=== PATIENT | male | born 1965 | race Caucasian/White ===

== ENCOUNTER → 2016-03-24 | Outpatient (CLI) | payer MEDICAID ==
[~2016-03-24] MED LIST: ACETAMINOPHEN-H1 TA2 PO; AMOXICOT500 MG PO; ASPIRIN 81MG TA81 MG PO; AUGMENTIN 875-1 EACH PO; BISOPROLOL 5MG T5 MG PO; CEPHALEXIN500 M1 PO; DICLOFENAC 50MG50 MG PO; EPI-PEN1 MG/M1 MR; ERYTHROMYCI4 GM/TUBE OP; GABAPENTIN 400400 MG PO; GABAPENTIN100 M1 PO; GABAPENTIN800 MG PO; HYDROCODONE-APA1 TA2 PO; MEDROL 4MG. DOSE4 MG PO; MELOXICAM7.5 MG PO; NAPROXEN SODIU500 MG PO; PERCOGESIC EXTR1 TAB PO; TORADOL10 M2 PO; TYLENOL WITH CO1 TA1 PO
[2016-03-24 15:38] LABS: URINE BILIRUBIN - DIPSTICK NEGATIVE (NEG); URINE BLOOD NEGATIVE (NEG)
[2016-03-24 15:42] LABS: LYMPH # 2.7 K/mm3 (0.7-4.5); LYMPH % 35.1 % (10-50)
[2016-03-24 15:45] LABS: HEMOGLOBIN 15.3 g/dL (14.1-18.0)
[2016-03-24 16:23] LABS: BUN 11 mg/dL (7-18)
[2016-03-24 16:28] LABS: GFR (ESTIMATED) 79 ML/MIN (>60)
[2016-03-24 16:39] LABS: URINE SQUAMOUS CELLS OCC #/hpf (OCC)
== END ==
LOC: LAB 15:06
PROVIDERS: Surgery
DX: Z01.812 Encounter for preprocedural laboratory examination (principal)

== ENCOUNTER 2016-03-27 20:01 | Emergency (ER) | payer MEDICAID ==
[~2016-03-27] VITALS: Ht 175.3 cm; Wt 65.8 kg
[~2016-03-27 20:01] MED LIST changes: -ACETAMINOPHEN-H1 TA2 PO; -AUGMENTIN 875-1 EACH PO; -GABAPENTIN800 MG PO
[2016-03-27] MEDS ORDERED: GABAPENTIN800 MG PO (20:15)
[2016-03-27] MEDS ORDERED: ACETAMINOPHEN-H1 TA2 PO (20:16)
--- NOTE | 2016-03-27 21:18 | Emergency Room Report ---
History of Present Illness Time Seen by [id number] Presenting Problem in Triage Pt arrived:Wheelchair Presenting Problem:PT COMPLAINING OF PAIN OF PAIN IN LOWER ABDOMEN UP TO RIBS. PT STATES THAT HE HAD 2 HERNIAS REMOVED THIS AM BY DR SIDDIQUI. PT STATES HE WENT HOME AT 1000 AND STARTED HURTING AT 1200. 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 N Clinical Suspician of Infection? N Mental Status: 1 - Regular (Normal Baseline) Sepsis Risk:Low Sepsis Risk Have you (or family members/close friends) recently traveled outside the [place]? N If Yes, where/when: Have you had exposure to infectious disease within the past month? N TB? Other? Specify: Source patient, RN notes reviewed Exam Limitations no limitations Comment Pain from lower abdomen to ribs. Says he had 2 hernias repaired this AM by Dr. Siddiqui. Went home at 10AM and started hurting at 12 noon. He has not spoken to Dr. Siddiqui Cardiac Chest Pain Chest pain indicative of cardiac No ALLERGIES Coded Allergies: peanut (Mild, SOB, SWELLING 03/27/16) Home Medications Active Scripts Epinephrine (Epipen 2-Boby) 1 MG MR ONCE PRN severe allergic reaction #1 KIT Prov: 11/20/15 ASPIRIN (Aspirin) 81 MG PO DAILY #30 Ref 5 Prov: 11/25/15 BISOPROLOL FUMARATE (Bisoprolol 5MG) 2.5 MG PO DAILY #30 TAB Ref 3 Prov: 11/25/15 Reported Medications Gabapentin (Gabapentin 800MG) 800 MG PO BID #60 HYDROCODONE/ACETAMINOPHEN (Hydrocodon-Acetaminophen 5-325) 1 TAB PO Q6HP PRN HERNIA SX #27 History Medical History General CAD? No Angina: No [place]: No Hypertension? No Hyperlipidemia? No CHF? No DVT? No PE? No COPD? No Asthma? No Anemia? No GERD? No Gastric ulcers? No GI Bleed? No Hernia? No Thyroid Problems? No Hypothyroidism? No CVA? No Seizures? Yes Diabetes? No Insulin Dependent: No Insulin Pump: No Home FSBS? No Renal Insuffiency? No End Stage Renal Disease? No UTI? No Stones? No BPH? No GB Disease: No Nephritic Syndrome? No Asplenia? No Hepatitis? No Sickle Cell Disease? No Arthritis? No Migraines? No Cataracts? No Glaucoma? No MRSA? No HIV? No TB? No Anxiety? No Depression? No Cancer? No More? Yes Additional hx: CHRONIC PAIN chronic low back pain chronic migraine headaches Bipolar disease Paranoid Schizophrenia Immunization Hx DT/Tetanus 5-10 Years Ago Pneumonia Refuses Surgical Hx Previous Surgery?Y RECONSTRUCTIVE FACIAL SWATI Appendectomy BACK SURGERY X2 HERNIA SX X 2 03/17 Family History Family Hx Diabetes No CAD Yes Hypertension No Hyperlipidemia Yes Cancer No TB No Social History Smoking Hx Smoker: Current Every Day Smoker Tobacco: Yes Type Cigarettes Packs/day 1 1/2 - 2 Packs Are you/the child exposed to second-hand smoke: Yes Alcohol Alcohol: No Review of Systems All Other Systems Reviewed and Negative Constitutional see HPI Gastrointestinal see HPI Physical Exam Vital Signs Vital Signs Date Time Temp Pulse Resp B/P Pulse O2 O2 Flow FiO2 Ox Delivery Rate 03/278 66 18 103/58 97 03/273 74 18 100/62 97 03/27 2051 79 18 108/64 99 03/27 2006 97.9 77 18 127/70 100 General Appearance mild distress Respiratory Status No: respiratory distress. Lung Sounds bilateral: normal breath sounds. Cardiovascular normal exam, regular rate/rhythm Gastrointestinal redness at upper border of inguinal incision and some mild subq air...Dr. Aj discussed with Dr. 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 I directly delivered medical care to this critically ill and/or injured patient. Timely evaluation and treatment was necessary to address the significant organ system(s) dysfunction present in this patient.
--- NOTE | 2016-03-27 22:27 | Emergency Room Report ---
History of Present Illness Time Seen by 2009 Presenting Problem in Triage Pt arrived:Wheelchair Presenting Problem:PT COMPLAINING OF PAIN OF PAIN IN LOWER ABDOMEN UP TO RIBS. PT STATES THAT HE HAD 2 HERNIAS REMOVED THIS AM BY DR SIDDIQUI. PT STATES HE WENT HOME AT 1000 AND STARTED HURTING AT 1200. 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 N Clinical Suspician of Infection? N Mental Status: 1 - Regular (Normal Baseline) Sepsis Risk:Low Sepsis Risk Have you (or family members/close friends) recently traveled outside the [place]? N If Yes, where/when: Have you had exposure to infectious disease within the past month? N TB? Other? Specify: Source patient, RN notes reviewed, family, old records Exam Limitations no limitations Comment pt with surg this am with lt inguinal hernia repair and inc pain and lat reddness but no drainage Cardiac Chest Pain Chest pain indicative of cardiac No Timing/Duration this evening Severity moderate ALLERGIES Coded Allergies: peanut (Mild, SOB, SWELLING 03/27/16) Home Medications Active Scripts Epinephrine (Epipen 2-Boby) 1 MG MR ONCE PRN severe allergic reaction #1 KIT Prov: 11/20/15 ASPIRIN (Aspirin) 81 MG PO DAILY #30 Ref 5 Prov: 11/25/15 BISOPROLOL FUMARATE (Bisoprolol 5MG) 2.5 MG PO DAILY #30 TAB Ref 3 Prov: 11/25/15 Reported Medications Gabapentin (Gabapentin 800MG) 800 MG PO BID #60 HYDROCODONE/ACETAMINOPHEN (Hydrocodon-Acetaminophen 5-325) 1 TAB PO Q6HP PRN HERNIA SX #27 History Medical History General CAD? No Angina: No [place]: No Hypertension? No Hyperlipidemia? No CHF? No DVT? No PE? No COPD? No Asthma? No Anemia? No GERD? No Gastric ulcers? No GI Bleed? No Hernia? No Thyroid Problems? No Hypothyroidism? No CVA? No Seizures? Yes Diabetes? No Insulin Dependent: No Insulin Pump: No Home FSBS? No Renal Insuffiency? No End Stage Renal Disease? No UTI? No Stones? No BPH? No GB Disease: No Nephritic Syndrome? No Asplenia? No Hepatitis? No Sickle Cell Disease? No Arthritis? No Migraines? No Cataracts? No Glaucoma? No MRSA? No HIV? No TB? No Anxiety? No Depression? No Cancer? No More? Yes Additional hx: CHRONIC PAIN chronic low back pain chronic migraine headaches Bipolar disease Paranoid Schizophrenia Immunization Hx DT/Tetanus 5-10 Years Ago Pneumonia Refuses Surgical Hx Previous Surgery?Y RECONSTRUCTIVE FACIAL SWATI Appendectomy BACK SURGERY X2 HERNIA SX X 2 03/17 Family History Family Hx Diabetes No CAD Yes Hypertension No Hyperlipidemia Yes Cancer No TB No Social History Smoking Hx Smoker: Current Every Day Smoker Tobacco: Yes Type Cigarettes Packs/day 1 1/2 - 2 Packs Are you/the child exposed to second-hand smoke: Yes Alcohol Alcohol: No Drugs none Review of Systems All Other Systems Reviewed and Negative Constitutional denies fever Eyes denies drainage ENT denies: ear pain, epistaxis, throat pain. Respiratory denies cough, denies wheezing Cardiovascular denies chest pain, denies palpitations, denies syncope Gastrointestinal see HPI, abdominal pain, denies diarrhea, denies vomiting Genitourinary denies: dysuria, frequency, hesitancy, hematuria. Musculoskeletal denies back pain, denies joint pain, denies joint swelling, denies neck pain Skin see HPI, denies rash, other Psychiatric/Neurological denies headache, denies seizure Physical Exam Vital Signs Vital Signs Date Time Temp Pulse Resp B/P Pulse O2 O2 Flow FiO2 Ox Delivery Rate 03/27 2323 68 20 104/56 97 03/27 2300 18 03/27 2247 71 18 105/60 98 03/278 66 18 103/58 97 03/27 2133 74 18 100/62 97 03/272 79 18 108/64 99 03/27 2007 97.9 77 18 127/70 100 - WBC >12,000 or <4,000 or 10% bands? 2 or more SIRS Criteria Met? B/P:104/56 MAP:89 Creatinine >2.0? UA output<0.5ml/kg/hr for 2 hrs? Platelet count >100,000? Lactate >2.0mmol/1? INR >1.2 or PTT > than 60 sec? Evidence of Organ Dysfunction? Provider documented clinical suspician of infection? N Sepsis Criteria Count: 0 Sepsis Risk: Low Sepsis Risk General Appearance no apparent distress Eye Exam - bilateral eye PERRL, bilateral eye EOMI Ear, Nose, Throat normal ENT inspection Neck supple Respiratory Status No: respiratory distress. 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 No Results/Orders Laboratory Tests 03/27/165: Sodium 137, Potassium 4.4, Chloride 102, Carbon Dioxide 31, BUN 13, Creatinine 1.2, Estimated Creat Clear 69, Estimated GFR (MDRD) 64, Glucose 180 H, Calcium 9.4, WBC 14.7 H, RBC 4.39 L, Hgb 13.1 L, Hct 39.5 L, MCV 89.9, RDW 14.2, Plt Count 193, Gran % 92.0 H, Gran # 13.5 H, Total Counted 100, Lymphocytes % 5.6 L, Monocytes % 2.4, Neutrophils 83 H, Band Neutrophils 8, Lymphocytes (Manual) 7 L, Lymphocytes # 0.8, Monocytes (Manual) 2, Monocytes # 0.4, RBC/WBC/PLT Morphology NORMAL, Platelet Estimate NORMAL, PUBS MCHC 33.2, MCH 29.8 Current Medication Orders Sig/Hiral Start time Last Medication Dose Route Stop Time Status Admin Ampicillin Sodium/ 0 .STK-MED ONE 03/27 2323 DC Sulbactam Sodium IV Sodium Chloride 100 ML .STK-MED ONE 03/27 2322 DC IV Ampicillin/Sulbactam/ 3 GM ONCE ONE 03/27 2315 DC 03/27 Sodium Chlorid IV 03/274 2327 Sodium Chloride 100 ML Ketorolac 30 MG ONCE ONE 03/27 2300 DC 03/27 Tromethamine IV 03/27 2301 2300 Sodium Chloride 1,000 ML .Q1H1M 03/27 2300 AC 03/27 IV 03/28 0000 2300 Sodium Chloride 10 ML PRN PRN 03/27 2300 AC IV 03/28 2254 Ketorolac 0 .STK-MED ONE 03/27 2257 DC Tromethamine .ROUTE Sodium Chloride 1,000 ML .STK-MED ONE 03/27 2257 DC IV Sodium Chloride 10 ML PRN PRN 03/27 2230 AC IV 03/28 2228 Orders Procedure Date/time Status DIFFERENTIAL-WBC 03/27 2244 Complete IV SALINE LOCK 03/27 2227 Active CULTURE, BLOOD 03/27 2227 Active CBC WITH AUTO DIFF 03/27 2227 Complete BASIC METABOLIC PROFILE 03/27 2227 Complete Departure Departure Time of Disposition 2343 Disposition DC Home or Self Care(routine) Clinical Impression Primary Impression: Post op infection Qualifiers: Encounter type: initial encounter Qualified Code: T81.4XXA - Infection following a procedure, initial encounter Condition STABLE Referrals Dave Duran (Family) discussed with dr siddiqui Patient Instructions How to Care for a Surgical Wound Additional Instructions recheck as ed follow up at 1100 am Discharge Counseling Counseled pt/family regarding diagnosis, test results, follow up needs Prescriptions Current Visit Scripts Amoxicillin/Potassium Clav (Augmentin 875-125 Tablet) 1 EACH PO BID #20 TAB ED Critical Care Critical Care No at [id number]
[2016-03-27 23:00] LABS: HEMOGLOBIN 13.1 g/dL (14.1-18.0)
[2016-03-27 23:01] LABS: LYMPH # 0.8 K/mm3 (0.7-4.5); LYMPH % 5.6 % (10-50)
[2016-03-27 23:14] LABS: NEUTROPHILS 83 % (42-76)
[2016-03-27] MEDS ORDERED: AUGMENTIN 875-1 EACH PO (23:45)
[2016-03-27 23:55] VITALS: BP 104/56
== END 2016-03-27 23:57 | disposition home or self-care (01) ==
LOC: ER 20:01
PROVIDERS: Emergency Medicine
DX: F20.0 Paranoid schizophrenia (principal)

== ENCOUNTER 2016-12-12 22:44 | Emergency (ER) | payer MEDICAID ==
[~2016-12-12] VITALS: Ht 175.3 cm; Wt 79.4 kg
[~2016-12-12 22:44] MED LIST changes: +ACETAMINOPHEN-H1 TA2 PO; +AUGMENTIN 875-1 EACH PO; +GABAPENTIN800 MG PO; +NOMEDS XX; +PREDNISONE 20MG20 MG PO
--- NOTE | 2016-12-12 23:01 | Emergency Room Report ---
History of Present Illness Time Seen by [id number] Presenting Problem in Triage Pt arrived:Walked Presenting Problem:C/O MID CHEST PAIN WITH RADIATION TO EPIGASTRIC AREA AND JAW FOR 3-4 DAYS. WAS ADMITTED 3-4 MONTHS AGO WITH SAME SYMPTOMS AND HAD CARDIAC CATH. ALSO C/O INCREASED PAIN WITH DEEP INSPIRATION. 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 N Clinical Suspician of Infection? N Mental Status: 1 - Regular (Normal Baseline) Sepsis Risk:Low Sepsis Risk Have you (or family members/close friends) recently traveled outside the [place]? N If Yes, where/when: Have you had exposure to infectious disease within the past month? N TB? Other? Specify: Source patient, RN notes reviewed, family, old records Exam Limitations no limitations Comment over the last few day has midsternal to epigastric chest pain with no diaphoresis and no def inc/dec factors - similiar to pain about 1 yr ago and he has cath which was ok and he has no melena or sig gerd Cardiac Chest Pain Chest pain indicative of cardiac No Timing/Duration this evening Severity moderate ALLERGIES Coded Allergies: peanut (Mild, SOB, SWELLING 03/27/16) Home Medications Active Scripts Epinephrine (Epipen 2-Boby) 1 MG MR ONCE PRN severe allergic reaction #1 KIT Prov: 11/20/15 ASPIRIN (Aspirin) 81 MG PO DAILY #30 Ref 5 Prov: 11/25/15 BISOPROLOL FUMARATE (Bisoprolol 5MG) 2.5 MG PO DAILY #30 TAB Ref 3 Prov: 11/25/15 Reported Medications No Home Medications (NO HOME MEDICATIONS) 1 EACH XX ONCE History Medical History General CAD? Yes Angina: Yes [place]: No Hypertension? Yes Hyperlipidemia? No CHF? No DVT? No PE? No COPD? No Asthma? No Anemia? No GERD? No Gastric ulcers? No GI Bleed? No Hernia? Yes Thyroid Problems? Yes Hypothyroidism? No CVA? No Seizures? Yes Diabetes? No Insulin Dependent: No Insulin Pump: No Home FSBS? No Renal Insuffiency? No End Stage Renal Disease? No UTI? No Stones? No BPH? No GB Disease: No Nephritic Syndrome? No Asplenia? No Hepatitis? No Sickle Cell Disease? No Arthritis? No Migraines? No Cataracts? No Glaucoma? No MRSA? No HIV? No TB? No Anxiety? No Depression? No Cancer? No More? Yes Additional hx: CHRONIC PAIN chronic low back pain chronic migraine headaches Bipolar disease Paranoid Schizophrenia Immunization Hx DT/Tetanus 5-10 Years Ago Pneumonia Refuses Surgical Hx Previous Surgery?Y RECONSTRUCTIVE FACIAL SWATI Appendectomy BACK SURGERY X2 HERNIA SX X 2 03/17 CARDIAC CATH Family History Family Hx Diabetes No CAD Yes Hypertension No Hyperlipidemia Yes Cancer No TB No Social History Smoking Hx Smoker: Current Every Day Smoker Tobacco: Yes Type Cigarettes Packs/day 1 1/2 - 2 Packs Alcohol Alcohol: No Drugs none Review of Systems All Other Systems Reviewed and Negative Constitutional denies fever Eyes denies drainage ENT denies: ear discharge, epistaxis, throat pain. Respiratory denies cough, denies shortness of breath, denies wheezing Cardiovascular see HPI, chest pain, denies palpitations, denies syncope Gastrointestinal denies abdominal pain, denies diarrhea, denies vomiting Genitourinary denies: dysuria, frequency, hesitancy, hematuria. Musculoskeletal denies back pain, denies joint pain, denies joint swelling, denies neck pain Skin denies rash Psychiatric/Neurological denies headache, denies seizure Physical Exam Vital Signs Vital Signs Date Time Temp Pulse Resp B/P Pulse O2 O2 Flow FiO2 Ox Delivery Rate 12/13 0002 97.9 58 20 102/53 98 12/12 2246 97.9 61 20 100/64 99 - WBC >12,000 or <4,000 or 10% bands? 2 or more SIRS Criteria Met? B/P:102/53 MAP:76 Creatinine >2.0? UA output<0.5ml/kg/hr for 2 hrs? Platelet count >100,000? Lactate >2.0mmol/1? INR >1.2 or PTT > than 60 sec? Evidence of Organ Dysfunction? Provider documented clinical suspician of infection? N Sepsis Criteria Count: 1 Sepsis Risk: Low Sepsis Risk General Appearance no apparent distress Eye Exam - bilateral eye PERRL, bilateral eye EOMI Ear, Nose, Throat normal ENT inspection Neck supple Respiratory Status No: respiratory distress. Lung Sounds bilateral: lungs clear. 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 No Results/Orders Laboratory Tests 12/12/16 2330: Opiates Screen POSITIVE H, Urine Methadone Screen NEGATIVE, Barbiturates NEGATIVE, Phencyclidine Screen NEGATIVE, Amphetamines Screen NEGATIVE, Benzodiazepines Screen NEGATIVE, Cocaine Screen NEGATIVE, Marijuana (THC) Screen POSITIVE H, Urine Color YELLOW, Urine Appearance CLEAR, Urine pH 6.5, Ur Specific [place] 1.015, Urine Protein TRACE H, Urine Ketones 1+ H, Urine Blood NEGATIVE, Urine Nitrate NEGATIVE, Urine Bilirubin NEGATIVE, Urine Urobilinogen 0.2, Ur Leukocyte Esterase NEGATIVE, Urine WBC 3-5, Amorphous Sediment TRACE, Urine Mucus 4+, Urine Glucose NEGATIVE 12/12/16 2250: Sodium 140, Potassium 4.0, Chloride 105, Carbon Dioxide 32, BUN 14, Creatinine 1.1, Estimated Creat Clear 91, Estimated GFR (MDRD) 71, Glucose 48 *L, Calcium 8.9, Total Bilirubin 0.5, AST 16, ALT 15, Alkaline Phosphatase 79, Creatine Kinase 69, CK-MB (CK-2) Rel Index 0.7, CK and CKMB Interp 0.5, Troponin I < 0.02 , Total Protein 7.8, Albumin 3.9, Globulin 3.9 H, Albumin/Globulin Ratio 1.0 L , WBC 10.5, RBC 4.54 L, Hgb 14.0 L, Hct 42.7, MCV 94.1, RDW 13.9, Plt Count 196, MPV 8.6, Gran % 72.9, Gran # 7.6, Lymphocytes % 18.0, Monocytes % 7.5, Eosinophils % 1.0, Basophils % 0.5, Lymphocytes # 1.9, Monocytes # 0.8, Eosinophils # 0.1, Basophils # 0.1, PUBS MCHC 32.7, MCH 30.8 Current Medication Orders Sig/Hiral Start time Last Medication Dose Route Stop Time Status Admin Famotidine 0 .STK-MED ONE 12/124 DC IV Sodium Chloride 0 .STK-MED ONE 12/12 2354 DC IV Metoclopramide HCl 0 .STK-MED ONE 12/12 2353 DC .ROUTE Famotidine 20 MG ONCE ONE 12/12 2345 DC 12/12 IV 12/12 2346 2357 Metoclopramide HCl 10 MG ONCE ONE 12/12 2345 DC 12/12 IVP 12/12 234 2357 Sodium Chloride 8 ML ONCE ONE 12/12 2345 DC 12/12 IV 12/12 2346 2358 Aspirin 324 MG ONCE ONE 12/12 2300 DC 12/12 PO 12/12 230 2257 Sodium Chloride 10 ML PRN PRN 12/12 2300 AC IV 12/13 225 Sodium Chloride 10 ML PRN PRN 12/12 2300 AC IV 12/13 225 Aspirin 0 .STK-MED ONE 12/13 2255 DC .ROUTE Orders Procedure Date/time Status ELECTROCARDIOGRAM REQUEST 12/12 2250 Active CHEST(2 VIEWS-NOT PORTABLE) 12/12 2250 Active IV SALINE LOCK 12/12 2250 Active URINALYSIS/COMPLETE 12/12 2250 Complete DRUG ABUSE SCREEN (TRIAGE) 12/12 2250 Complete COMPLETE METABOLIC PANEL 12/12 2250 Complete CBC WITH AUTO DIFF 12/12 2250 Complete CARDIAC ENZYMES 12/12 2250 Complete 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 ST/Twave chgs XRAY/CT/US XRAY/CT/US XRAY chest XR interpretation by reviewed by me Xray Results normal/NAD EYAD Score for N-Stemi/Angina EYAD N-STEMI SCORE EYAD N-STEMI SCORE Response Value Age of patient Less than 65 yrs 0 Number of risk factors for CAD Presence of 3 or more 1 Prior coronary artery stenosis (seen in angiography) Less than 50% 0 ST-Segment deviation on ECG (>1 min) Absent 0 Prior aspirin intake No ASA in the last 7 days 0 Severe anginal chest pain 2 or more episodes/24hr 1 Elevated cardiac markers(CK-MB or troponin) Absent 0 Total 2 Risk Stratification 0-2= Low Risk Patients Departure Departure Time of Disposition 0019 Disposition DC Home or Self Care(routine) Clinical Impression Primary Impression: Chest pain Qualifiers: Chest pain type: precordial pain Qualified Code: R07.2 - Precordial pain Condition STABLE Referrals NO REFERRAL (PCP) Patient Instructions DI for Chest Pain Additional Instructions please see pcp for follow up and use meds as directed Discharge Counseling Counseled pt/family regarding diagnosis, test results, medications/RX, follow up needs Prescriptions Current Visit Scripts Pantoprazole Sodium (Protonix 40MG TAB) 40 MG PO DAILY #30 TAB ED Critical Care Critical Care No at 0022
[2016-12-12 23:06] LABS: LYMPH # 1.9 K/mm3 (0.7-4.5)
[2016-12-12 23:34] LABS: BUN 14 mg/dL (7-18); GFR (ESTIMATED) 71 ML/MIN (>60)
[2016-12-12 23:42] LABS: URINE BILIRUBIN - DIPSTICK NEGATIVE (NEG); URINE BLOOD NEGATIVE (NEG)
[2016-12-12 23:45] LABS: AMPHETAMINES/METAMPHETAMINES NEGATIVE ng/mL (<1000)
[2016-12-13] MEDS ORDERED: PROTONIX 40MG T40 MG PO (00:21)
[2016-12-13 00:38] VITALS: BP 81/36
--- OUTSIDE RECORDS SUMMARY | 2016-12-13 06:38 | External Medical Summary Rpt | CCD ---
Author Author , [facility] Organization [facility] Address Unknown Phone [email or web address] Care Team Providers Care Athletic Director Name Role Phone ARNHELEN WILBUR, ARNOLD Unavailable Unavailable WILBUR ARNOLD WILBUR, ARNOLD Unavailable Unavailable WILBUR TEJADA GARY, TEJADA GARY Unavailable Unavailable BEINEKE, BEINEKE Unavailable Unavailable LAURIE L, LAURIE L Unavailable Unavailable BESSON, BESSON Unavailable Unavailable CERNA, CERNA Unavailable Unavailable CERNA ALL, CERNA ALL Unavailable Unavailable ALFARO CAMI, ALFARO Unavailable Unavailable CAMI FRYMAN EUG, FRYMAN Unavailable Unavailable JR MACARIO MACDONALD, Unavailable Unavailable JR MACARIO LAWSON CHEL, CHEL Unavailable Unavailable CHEL ANGEL, CHEL Unavailable Unavailable ANGEL [facility] Un[facility] Un[facility], [facility], Unavailable Unavailable [facility] Unavailable Unavailable INC, [facility] Unavailable Unavailable [facility], [facility] Unavailable Unavailable [facility]PITAL P, [facility] PETER HIRA, PETER Unavailable Unavailable HIRA BURRELL TURNER, BURRELL TURNER Unavailable Unavailable [facility], Unavailable Unavailable [facility] ORNELAS CM, ORNELAS CM Unavailable Unavailable [facility] Unavailable Unavailable GROUP PS, [facility] Unavailable Unavailable [facility], [facility] Unavailable Unavailable ASS[facility]IAT, [facility] FIGUEREDO ALVINA, FIGUEREDO Unavailable Unavailable ALVINA JJ JR DWI, JJ Unavailable Unavailable JR DWI LEILANI DON, Unavailable Unavailable LEILANI DON LEILANI DON, Unavailable Unavailable LEILANI [facility], Unavailable Unavailable PLL[facility], [facility] ALBERTO LETICIA, ALBERTO Unavailable Unavailable LETICIA ARTUR, ARTUR Unavailable Unavailable RENUSCH MARQUIS, RENUSCH Unavailable Unavailable MARQUIS FLAVIO MAT, Unavailable Unavailable FLAVIO MAT BENSON KARISHMA, BENSON KARISHMA Unavailable Unavailable SOTINGEANU BRENDON, Unavailable Unavailable [facility] Un[facility], [facility] MIC HAILE Unavailable Unavailable NURA WILBUR, NURA Unavailable Unavailable WILBUR TRUE CHRISTOPHER, TRUE CHRISTOPHER Unavailable Unavailable [facility], Unavailable Unavailable [facility] WAESPE MADHURI, WAESPNiesha Unavailable Unavailable MADHURI Purpose Continuity of Care Document - 06-19-2013 through 2016 Problems Code Diagnosis DOS Provider Status J449 CHRONIC 11-03-2016 [facility] DISEASE UNS R0602 SHORTNESS 11-03-2016 [facility] BREATH [facility] R1013 EPIGASTRIC 11-03-2016 [facility] R109 UNSPECIFIED 11-03-2016 [facility] ABDOMINAL PHYSICIANS, PAIN [facility] I10 ESSENTIAL 07-30-2016 [facility] P N I2510 ASHD HOONAH 07-30-2016 [facility] ARTERY W/O HOSPITAL P ANGINA PECTORIS R079 CHEST PAIN 07-30-2016 [facility] UNSPECIFIED PHYSICIANS, [facility] Z720 TOBACCO USE 07-30-2016 [facility] G8918 OTHER ACUTE 03-31-2016 [facility] POSTPROCEDU INC RAL PAIN K4090 UNILAT 03-27-2016 [facility] SOH[facility] W/O GROUP OBST/GANGRE N NOT RECUR [id number] INFECTION 03-27-2016 [facility] FOLLOWING PHYSICIANS, PROCEDURE [facility] INITIAL ENCOUNTER S74191 ENCOUNTER 03-24-2016 [facility] FOR [facility] PREPROCEDUR INC AL LABORATORY EXAM Y81779 MIGRAINE 03-15-2016 [facility] W/O AURA [facility] NOT INTRACT INC W/O STAT MIGRAIN M545 LOW BACK 03-15-2016 [facility] PAIN [facility] INC R200 ANESTHESIA 03-15-2016 [facility] OF SKIN PHYSICIANS, [facility] U93750 OTHER 12-26-2015 ARNOLD WILBUR MIGRAINE INTRACT W/O STATUS MIGRAINOSUS N529 MALE 12-26-2015 ARNOLD WILBUR ERECTILE DYSFUNCTION UNSPECIFIED I209 ANGINA 11-25-2015 [facility] UNSPECIFIED GROUP I340 NONRHEUMATI 11-25-2015 [facility] INSUFFICIEN CY I361 NONRHEUMATI 11-25-2015 [facility] TRICUSPID SERV [facility]VE [facility] INSUFFICIEN CY I5189 OTHER 11-25-2015 [facility] ILL-DEFINED SERV HEART [facility] DISEASES R55 SYNCOPE AND 11-25-2015 [facility] I480 PAROXYSMAL 11-24-2015 [facility] P N [id number] ANAPHYLACTI 11-20-2015 [facility]ickey REACTION [facility] DUE PEANUTS INC INIT ENCOUNTER [id number] ANAPHYLACTI 11-20-2015 [facility] Dickey SHOCK PHYSICIANS, UNSPECIFIED PLLC INITIAL ENCOUNTER R51 HEADACHE 11-03-2015 [facility] MONTAÑO, PLLC 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 09-26-2015 [facility] S[facility]LE [facility]ROID [facility] NODULE R1310 DYSPHAGIA 09-26-2015 [facility]PEC[facility] R634 ABNORMAL 09-26-2015 [facility] LOSS [facility] D65640 EFFUSION 09-18-2015 [facility]EE [facility] U32753 PAIN IN 09-18-2015 [facility]EE [facility] H57130B STRAIN UNS 09-18-2015 [facility] MUSCLE PHYSICIANS, TENDON LOW PLL LEG RT LEG INIT ENC Y0954YM UNS INJURY 09-18-2015 [facility] RT LOWER MEDICAL LEG INITIAL IMAGING ASS ENCOUNTER [id number] UNSPECIFIED 09-18-2015 [facility] INJURY MEDICAL RIGHT ANKLE IMAGING ASS INITIAL ENCOUNTER H90151E UNSPECIFIED 09-18-2015 [facility] INJURY MEDICAL RIGHT FOOT IMAGING ASS INITIAL ENCOUNTER E069 THYROIDITIS 08-30-2015 [facility] UNSPECIFIED GROUP R946 ABNORMAL 08-20-2015 [facility] RESULTS OF [facility] THYROID INC FUNCTION STUDIES K088 OT SPEC 06-07-2015 [facility] DISORDERS DON TEETH & SUPPORTING STRUCTURES M5022 OT CERV 06-05-2015 [facility] DISC ORTHOPEDIC DISPLACEMEN ASSOCIAT T [place] L REGION M5116 INTERVERTEB 06-05-2015 [facility] DISC ORTHOPEDIC D/O ASSOCIAT W/RADICULOP ATHY LUMB RGN K648 OTHER 05-18-2015 [facility] G8929 OTHER 03-20-2015 [facility] PAIN GROUP F61115 OTHER LONG 03-20-2015 [facility] TERM [facility] CURRENT GROUP DRUG THERAPY N471 PHIMOSIS 03-07-2015 [facility] PS N481 BALANITIS 03-01-2015 [facility] R300 DYSURIA 03-01-2015 [facility] N410 ACUTE 02-23-2015 [facility] PROSTATITIS [facility] INC 05361 OTHER 11-22-2014 [facility] V5869 LONG-TERM 11-22-2014 [facility] (CURRENT) [facility] USE OF HOSPITAL OTHER MEDICATIONS 08635 HORDEOLUM 10-22-2014 [facility] V571 OTHER 10-05-2014 [facility] PHYSICAL [facility] THERAPY INC 62499 UNSPECIFIED 09-27-2014 [facility] [place] [address] INJURY OF 09-27-2014 [facility] NECK OTHER AND UNSPECIFIED E9298 LATE 09-27-2014 [place] [facility]ECTS OF SERV OTHER [facility] ACCIDENTS 9181 SUPERFICIAL 09-24-2014 [place] [facility] OF SERV [facility] E9179 OTHER 09-23-2014 [place] [facility] STRIKING SERV AGAINST [facility] W/WO SUBSEQUENT FALL V714 OBSERVATION 09-23-2014 [place] [facility] FOLLOW[facility] OTHER [facility] ACCIDENT 7245 UNSPECIFIED 09-17-2014 [facility] BACKACHE PHYSICIANS, [facility] 7840 HEADACHE 09-17-2014 [facility] 5259 UNSPECIFIED 09-12-2014 [facility] DISORDER PHYSICIANS, TEETH&SUPPO [facility] RTING STRUCTURES 93607 UNSPECIFIED 08-17-2014 [place] SITE OF [facility] ANKLE INC SPRAIN AND STRAIN 9597 INJURY 08-17-2014 [facility] OTHER&UNSPE MEDICAL CIFIED KNEE IMAGING ASS LEG ANKLE&FOOT N47.7 OTHER INFLAMMATOR Y DISEASES OF PREPUCE R07.9 CHEST PAIN, UNSPECIFIED R10.9 UNSPECIFIED ABDOMINAL PAIN Medications Na ND Rx Da Fi Fi Am Da Di Ph RX Ph St me C No te ll ll ou ys ag ar # ys at rm s nt no ma ic us Or Da si cy ia de te s n re d UT 00 06 07 10 5 00 WA Ac ED 14 -0 -0 .0 00 L- ti NI 39 1- 7- 00 07 MA ve SO 73 20 20 49 RT NE 80 17 17 10 5 44 PH 20 AR MA MG CY TA #5 BL 91 ET GA 68 04 05 60 30 00 HO Ac BA 00 -2 -2 .0 00 ME ti PE 10 4- 6- 00 06 TO ve NT 00 20 20 08 WN IN 70 17 17 56 3 76 PH 80 AR 0 MA MG CY TA OF BL ET CY NT HI AN A GA 68 03 04 60 30 00 HO Ac BA 00 -2 -2 .0 00 ME ti PE 10 4- 8- 00 06 TO ve NT 00 20 20 07 WN IN 70 17 17 43 3 68 PH 80 AR 0 MA MG CY TA OF BL ET CY NT HI AN A BI 29 02 03 15 30 00 HO Ac SO 30 -2 -3 .0 00 ME ti UT 00 4- 1- 00 06 TO ve OL 12 20 20 07 WN OL 60 17 17 23 1 80 PH FU AR MA MA RA CY TE 5 OF MG CY NT TA HI B AN A GA 02 03 60 30 00 HO Ac BA 00 -2 -3 .0 00 ME ti PE 10 4- 1- 00 06 TO ve NT 00 20 20 07 WN IN 70 17 17 43 3 68 PH 80 AR 0 MA MG CY TA OF BL ET CY NT HI AN A HY 13 01 03 [address] 10 -2 -0 .0 00 IN ti OC 70 7- 3- 00 00 IC ve OD 01 20 20 42 ON 90 17 17 03 PH -A 5 62 AR CE MA TA CY CT NO PH EN 5- 32 5 OX 47 01 03 27 10 00 CL Ac YC 78 -2 -0 .0 00 IN ti OD 10 8- 3- 00 00 IC ve ON 22 20 20 42 -A 90 17 17 04 PH CE [address] CY NO PH EN 7. 5- 32 5 BI 29 01 03 15 30 00 HO Ac SO 30 -2 -0 .0 00 ME ti UT 00 7- 3- 00 06 TO ve OL 12 20 20 07 WN OL 60 17 17 23 1 80 PH FU AR MA MA RA CY TE 5 OF MG CY NT TA HI B AN A 00 01 03 30 30 00 HO Ac PI 90 -2 -0 .0 00 ME ti RI 44 7- 3- 00 06 TO ve N 04 20 20 07 WN 81 07 17 17 23 3 89 PH MG AR MA CH CY EW AB OF LE CY TA NT BL HI ET AN A GA 01 03 60 30 00 HO Ac BA 00 -2 -0 .0 00 ME ti PE 10 7- 3- 00 06 TO ve NT 00 20 20 07 WN IN 70 17 17 43 3 68 PH 80 AR 0 MA MG CY TA OF BL ET CY NT HI AN A GA 12 02 60 30 00 HO Ac BA 00 -3 -0 .0 00 ME ti PE 10 0- 3- 00 06 TO ve NT 00 20 20 07 WN IN 70 16 17 43 3 68 PH 80 AR 0 MA MG CY TA OF BL ET CY NT HI AN A 00 12 02 30 30 00 HO Ac PI 90 -3 -0 .0 00 ME ti RI 44 0- 3- 00 06 TO ve N 04 20 20 07 WN 81 07 16 17 23 3 89 PH MG AR MA CH CY EW AB OF LE CY TA NT BL HI ET AN A Results Labs Lab Lab Date Result Refere Interp Status Commen Order Detail nces retati t Range on Drugs identified in Urine by Screen method (11-04-2016) Ampheta NEGATIV <1000 complet mine 017 E ed [Presen ce] in Urine by Screen method 11-Hydr POSITIV <50 Abnorma complet oxy 017 E l ed delta-9 tetrahy drocann abinol [Presen ce] in Unspeci fied specime n Urinalysis dipstick W Reflex Microscopic panel in Urine (11-03-2016 23:20) Bacteri 1+ O complet a 017 ed [Presen 23:20 ce] in Urine sedimen t by Light microsc opy Mucus 1+ NONE complet [Presen 017 ed ce] in 23:20 Urine sedimen t by Light microsc opy Epithel OCC OCC complet ial 017 ed cells.s 23:20 quamous [Presen ce] in Urine sedimen t by Microsc opy high power field Leukocy 3-5 O complet mary lou 017 wbc/hpf ed [#/volu 23:20 me] in Urine Urinalysis dipstick W Reflex Microscopic panel in Urine (11-03-2016 23:20) Appeara CLEAR CLEAR complet nce of 017 ed Urine 23:20 Bilirub NEGATIV NEG complet in 017 E ed [Presen 23:20 ce] in Urine by Test strip Erythro NEGATIV NEG complet cytes 017 E ed [Presen 23:20 ce] in Urine Color YELLOW YELLOW complet of 017 ed Urine 23:20 Ketones NEGATIV NEG complet 017 E ed [Presen 23:20 ce] in Urine by Automat ed test strip Mucus NEGATIV NEG complet [Presen 017 E ed ce] in 23:20 Urine sedimen t by Light microsc opy Nitrite NEGATIV NEG complet 017 E ed [Presen 23:20 ce] in Urine by Test strip Urobili 0.2 NEG complet nogen 017 ed [Presen 23:20 ce] in Urine by Test strip Procedures Procedure [place] [address] ANNAMARIA CERNA ABDOMEN & 7 MEDICAL PELVIS IMAGING W/O ASS CONTRAST MATERIAL RADIOLOGI 67791 ANNAMARIA CERNA C EXAM 7 MEDICAL CHEST 2 IMAGING VIEWS ASS FRONTAL&L ATERAL RADIOLOGI 92206 [facility] VERGARA C EXAM 7 [facility] CHEST 2 INC INC VIEWS FRONTAL&L ATERAL CREATINE 28217 [facility] VERGARA KINASE 7 [facility] TOTAL INC INC ECG 14623 URSULA VERGARA ROUTINE 7 [facility] ECG INC INC W/LEAST 12 LDS TRCG ONLY W/O I&R THER 39387 [facility] VERGARA PROPH/DX 7 [facility] NJX IV INC INC PUSH SINGLE/1S T SBST/[place] [address] [facility] VERGARA TROPONIN 7 [facility] QUANTITAT INC INC ELVIRA BLOOD 98581 U[facility]A VERGARA COUNT 7 [facility] COMPLETE INC INC AUTO&AUTO DIFRNTL WBC ECG 89715 [facility] SINHA ROUTINE 7 [facility] W/LEAST P 12 LDS I&R ONLY THERAPEUT 76693 [facility] VERGARA IC 7 [facility] INJECTION INC INC IV PUSH EACH NEW DRUG CREATINE 35270 U[facility]A VERGARA KINASE MB 7 [facility] FRACTION INC INC ONLY COMPREHEN 24135 [facility] VERGARA SIVE 7 [facility] METABOLIC INC INC PANEL COLLECTIO 46599 [facility] VERGARA N VENOUS 7 [facility] BLOOD INC INC VENIPUNCT URE BLOOD 60823 U[facility]A VERGARA COUNT 7 [facility] COMPLETE INC INC AUTO&AUTO DIFRNTL WBC BASIC 52702 [facility] VERGARA METABOLIC 7 [facility] [place] [address] URSULA VERGARA INFUSION 7 [facility] THERAPY INC INC PROPHYLAX IS/DX EA HOUR RPR 1ST 34876 [facility] INGUN 7 [facility] HRNA AGE INC INC 5 YRS/> REDUCIBLE ANESTHESI 97593 [facility] A HERNIA 7 ANESTH REPAIR OF THE LOWER BLUE ABDOMEN NOS URNLS DIP 56772 [facility] 7 [facility] STICK/TAB INC [place] [address] [facility]A VERGARA INFUSION 7 [facility] THERAPY/P INC INC ROPHYLAXI S /DX 1ST TO 1 HR THERAPEUT 04661 [facility] VERGARA IC 7 [facility] INJECTION INC INC IV PUSH EACH NEW DRUG COLLECTIO 15992 U[facility]ULA VERGARA N VENOUS 7 [facility] BLOOD INC INC VENIPUNCT URE BLOOD 87942 U[facility]ULA VERGARA COUNT 7 [facility] COMPLETE INC INC AUTO&AUTO DIFRNTL WBC BASIC 97430 U[facility]A VERGARA METABOLIC 7 [facility] PANEL INC INC CALCIUM TOTAL URNLS DIP 95500 [facility] VERGARA 7 [facility] STICK/TAB INC INC LET REAGENT AUTO MICROSCOP Y CATH PLMT 63466 [facility] & 6 PHYSICIAN MAT ARTS S GROUP W/NJX & ANGIO IMG S&I ECHO 40125 VINAY SCHWARZ TTC R-T 6 MEDICAL 2D SERV W/WOM-MOD FOUNDATIO E COMPL N SPEC&COLR D ECG 60870 U[facility]ULA GARDNER JR ROUTINE 6 [facility] W/LEAST P 12 LDS I&R ONLY RADIOLOGI 22133 [facility] ALL C EXAM 6 MEDICAL CHEST 2 IMAGING VIEWS ASS FRONTAL&L ATERAL THER 05271 [facility] VERGARA PROPH/DX 6 [facility] NJX IV INC INC PUSH SINGLE/1S T SBST/DRUG PRESSURIZ 29014 U[facility] VERGARA ED/NONPRE 6 [facility] SSURIZED INC INC INHALATIO N TREATMENT THERAPEUT 61367 U[facility]ULA VERGARA IC 6 [facility] INJECTION INC INC IV PUSH EACH NEW DRUG ECG 44971 URSULA GARDNER JR ROUTINE 6 [facility] W/LEAST P 12 LDS I&R ONLY ECG 44846 URSULA GARDNER JR ROUTINE 6 [facility] W/LEAST P 12 [facility] I&R ONLY RADIOLOGI 17955 ANNAMARIA GAUTHIER C EXAM 6 MEDICAL CHEST 2 IMAGING VIEWS ASS FRONTAL&L ATERAL US SOFT 02305 ANNAMARIA GAUTHIER TISSUE 6 MEDICAL HEAD & IMAGING NECK REAL ASS TIME IMGE DOCM RADEX 75849 ANNAMARIA GAUTHIER ESOPHAGUS 6 MEDICAL IMAGING ASS RADIOLOGI 85440 ANNAMARIA CERNA ALL C 6 MEDICAL EXAMINATI IMAGING ON ANKLE ASS 2 VIEWS THERAPEUT 67696 [facility] VERGARA IC 6 [facility] PROPHYLAC INC INC TIC/DX INJECTION SUBQ/IM RADIOLOGI 01398 ANNAMARIA CERNA ALL C 6 MEDICAL EXAMINATI IMAGING ON KNEE ASS 1/2 VIEWS RADIOLOGI 16154 [facility] VERGARA C 6 [facility] EXAMINATI INC INC ON KNEE 3 VIEWS RADIOLOGI 05121 ANNAMARIA CERNA ALL C 6 MEDICAL EXAMINATI IMAGING ON FOOT 2 ASS VIEWS RADEX 58027 [facility] VERGARA ANKLE 6 [facility] COMPLETE INC INC MINIMUM 3 [place] [address] URSULA VERGARA THYROID 6 [facility] STIMULATI INC INC NG HORMONE TSH COLLECTIO 25023 URSULA VERGARA N VENOUS 6 [facility] BLOOD INC INC VENIPUNCT URE COMPREHEN 39607 URSULA VERGARA SIVE 6 [facility] [address] URSULA VERGARA TRIIODOTH 6 [facility] YRONINE [place] [place] [address] URSULA VERGARA THYROXINE 6 [place] [address] U[facility]ULA VERGARA INFUSION 6 [facility] THERAPY/P INC INC ROPHYLAXI S /DX 1ST TO 1 HR ALVEOLOPL 68701 LEILANI LEILANI ASTY EACH 6 DON DON QUADRANT SPECIFY ANESTHESI 31483 ANNAMARIA NURA A MALE 6 ANESTHESI [facility] GENITALIA A GROUP INCL PS OPEN URETHRAL PX CULTURE 26744 URSULARAGHAV VERGARA BACTERIAL 6 [facility] INC INC QUANTTATI VE COLONY COUNT URINE URNLS DIP 99235 [facility] VERGARA 6 [facility] STICK/TAB INC INC LET REAGENT AUTO MICROSCOP Y ECG 24206 [facility] VERGARA ROUTINE 6 [facility] ECG INC INC W/LEAST 12 LDS TRCG ONLY W/O I&R BLOOD 13825 U[facility]ULA VERGARA COUNT 6 [facility] COMPLETE INC INC AUTO&AUTO DIFRNTL WBC COMPREHEN 98720 [facility] VERGARA SIVE 6 [facility] METABOLIC INC INC PANEL COLLECTIO 91336 U[facility]ULA VERGARA N VENOUS 6 [facility] BLOOD INC INC VENIPUNCT URE URNLS DIP 91953 [facility] VERGARA 5 [facility] STICK/TAB INC INC LET REAGENT AUTO MICROSCOP Y APPL 06828 [facility] VERGARA MODALITY 5 [facility] 1/> AREAS INC INC ULTRASOUN D EA 15 MIN APPLICATI 63703 [facility]A VERGARA ON 5 [facility] MODALITY INC INC 1/> AREAS HOT/COLD PACKS THERAPEUT 23726 U[facility]A VERGARA IC PX 1/> 5 [facility] AREAS INC INC EACH 15 MIN EXERCISES E-STIM G0283 URSULA VERGARA 1/> AREAS 5 [facility] OTH THAN INC INC WND CARE PART TX PLAN E-STIM G0283 URSULA VERGARA 1/> AREAS 5 [facility] OTH THAN INC INC WND CARE PART TX PLAN THERAPEUT 26286 URSULA VERGARA IC PX 1/> 5 [facility] AREAS INC INC EACH 15 MIN EXERCISES APPLICATI 27301 URSULA VERGARA ON 5 [facility] MODALITY INC INC 1/> AREAS HOT/COLD PACKS APPLICATI 18293 U[facility]ULA VERGARA ON 5 [facility] MODALITY INC INC 1/> AREAS HOT/COLD PACKS THERAPEUT 19647 URSULA VERGARA IC PX 1/> 5 [facility] AREAS INC INC EACH 15 MIN EXERCISES E-STIM G0283 URSULA VERGARA 1/> AREAS 5 [facility] WND CARE PART TX PLAN PHYSICAL 21894 URSULA VERGARA THERAPY 5 [facility] EVALUATIO INC INC N CT ORBIT 06929 [place] TRUE CHRISTOPHER SELLA/POS 5 MEDICAL T SERV FOSSA/EAR FOUNDATIO W/O N CONTRAST MATRL RADEX 71641 U[facility]ULA U[facility]A ANKLE 5 [facility] COMPLETE INC INC MINIMUM 3 VIEWS Encounters Encounter Start End Date Code Location Performer Type Date EMERGENCY 08308 AIDEN MILLIGAN DEPT 7 7 PHYSICIAN VISIT S, [facility] HIGH SEVERITY& THREAT [facility] URSULA - 7 7 [facility] EMER[facility]ENC[facility] 48101 U[facility] 7 7 [facility] T VISIT HIGH/URGE NT SEVERITY EMERGENCY 45029 AIDEN MILLIGAN DEPT 7 7 PHYSICIAN VISIT S, [facility] HIGH SEVERITY& TH[facility]AT [facility] URSULA - 7 7 [facility] EMERGENCY 91702 AIDEN MILLIGAN DEPT 7 7 PHYSICIAN VISIT S, [facility] HIGH SEVERITY& [facility]AT [facility] URSULA - 7 7 [facility] 24861 [facility] 7 7 PHYSICIAN T NEW 20 S GROUP MINUTES HOSPITAL URSULA - 7 7 [facility] OUT[facility] T EMERGENCY 24741 [facility] 7 [facility] V[facility]IT LIMITED/M INOR PROB EMERGENCY 08489 AIDEN MILLIGAN 7 7 PHYSICIAN DEPARTMEN S, [facility] T VISIT MODERATE SEVERITY HOSPITAL URSULA - 7 7 [facility] OUTPATIEN [facility] T OFFICE 68452 ANGELES [facility] 6 6 W[facility] WILBUR T NEW 30 MINUTES EMERGENCY 67201 AIDEN HAMMONDS DEPT 6 6 PHYSICIAN U BRENDON VISIT S, [facility] HIGH SEVERITY& THREAT [facility] URSULA - 6 6 [facility] OUTPATIEN INC T EMERGENCY 37741 URSULA 6 6 [facility] VISIT HIGH/URGE NT SEVERITY EMERGENCY 08228 AIDEN PAYAN 6 6 PHYSICIAN [facility], [facility] T VISIT MODERATE SEVERITY EMERGENCY 62007 AIDEN MILLIGAN DEPT 6 6 PHYSICIAN ANGEL VISIT S, [facility] HIGH SEVERITY& THREAT FUNJ EMERGENCY 83263 AIDEN MILLIGAN DEPT 6 6 PHYSICIAN ANGEL VISIT S, [facility] HIGH SEVERITY& THREAT FUN OFFICE 72844 [facility] OUTPATI[facility] 6 6 PHYSICIAN EUG T VISIT S GROUP 15 MINUTES OFFICE 38772 [facility] 6 6 PHYSICIAN ALVINA T VISIT S GROUP 10 MINUTES EMERGENCY 48615 [facility] 6 6 [facility] T VISIT LOW/MODER SEVERITY EMERGENCY 18721 AIDEN PABON 6 6 PHYSICIAN DEPARTMEN S, [facility] T VISIT HIGH/URGE NT SEVERITY HOSPITAL [facility] - 6 6 [facility] OUTPATI[facility] INC T OFFICE 13619 [facility] 6 6 PHYSICIAN ALVINA T NEW 30 S GROUP MINUTES HOSPITAL [facility] 6 6 [facility] T OFFICE 34707 [facility] 6 6 PHYSICIAN EUG T VISIT S GROUP 15 MINUTES OFFICE 18726 [facility] 6 6 PHYSICIAN EUG T VISIT S GROUP 15 MINUTES HOSPITAL [facility] - 6 6 [facility] T EMERGENCY 77251 AIDEN MILLIGAN 6 6 PHYSICIAN ANGEL DEPARTMEN S, PLLC T VISIT HIGH/URGE NT SEVERITY EMERGENCY 02554 [facility] 6 6 [facility] DEPART[facility] INC T VISIT MODERATE SEVERITY OFFICE 46198 ANNAMARIA SPARKSESPNiesha OUTPATIEN 6 6 [facility] MADHURI T NEW 45 C MINUTES ASSOCIAT OFFICE 73102 [facility] OUT[facility] 6 6 PHYSICIAN EUG T VISIT S GROUP 15 MINUTES EMERGENCY 01689 [facility] 6 6 N DEPARTMEN COMMUNTIY T VISIT HOSPITA LOW/MODER SEVERITY [facility] - 6 6 N OUTPATIEN COMMUNTIY T HOSPITA OFFICE 59981 [facility] OUT[facility] 6 6 PHYSICIAN EUG T VISIT S GROUP 15 MINUTES HOSPITAL [facility] - 6 6 [facility] OUTPATIEN INC T EMERGENCY 60955 [facility] 6 6 N DEPARTMEN COMMUNTIY T VISIT HOSPITA MODERATE SEVERITY [facility] - 6 6 N OUTPATIEN COMMUNTIY T HOSPITA EMERGENCY 32905 NICOLE VERGARA 6 6 [facility] DEPARTMEN EMERGENCY T VISIT PHYS HIGH/URGE NT SEVERITY EMERGENCY 56400 [facility] 5 5 N DEPARTMEN COMMUNTIY T VISIT HOSPITA LOW/MODER SEVERITY EMERGENCY 49687 NICOLE WARDLEY 5 5 [facility] DEPARTMEN EMERGENCY T VISIT PHYS MODERATE SEVERITY [facility] - 5 5 N [facility] 5 [facility] OUTPATIEN INC T EMERGENCY 49962 [facility] 5 5 [facility] DEPARTMEN INC T VISIT LIMITED/M INOR PROB OFFICE 35300 [facility] BURGER OUTPATIEN 5 5 [facility] T VISIT HOSPITAL 15 MINUTES OFFICE 91224 [facility] BURGER OUTPATIEN 5 5 [facility] EUG T VISIT HOSPITAL 15 MINUTES HOSPITAL [facility] - 5 5 [facility] OUTPATIEN INC T OFFICE 70398 [facility] B[facility]PATIEN 5 5 [facility] MINUTES [facility] 02081 [facility] LOW/MODER SEVERITY EMERGENCY 77039 VINAY DOMINGUEZ 5 5 [facility] DEPARTMEN SERV T VISIT FOUNDATIO MODERATE N SEVERITY OFFICE [address] VINAY PETER OUTPATIEN 5 5 MEDICAL HIRA T NEW 30 SERV MINUTES FOUNDATIO N OFFICE 30725 ASHANTI BURRELL [facility] OUTPATIEN 5 5 T VISIT 10 MINUTES EMERGENCY 71610 VINAY VEGA 5 5 MEDICAL DEPARTMEN SERV T VISIT FOUNDATIO HIGH/URGE N NT SEVERITY EMERGENCY 43898 AIDEN LAWSON 5 5 PHYSICIAN JR [facility] VISIT LOW/MODER SEVERITY EMERGENCY 75261 AIDEN Cruz 5 5 PHYSICIAN DEPARTMEN S, PLLC T VISIT MODERATE SEVERITY EMERGENCY 80874 AIDEN Cruz 5 5 PHYSICIAN DEPARTMEN S, PLLC T VISIT MODERATE SEVERITY HOSPITAL [facility] - 5 5 [facility] OUTPATIEN INC T EMERGENCY 01004 [facility] 5 5 [facility] DEPARTMEN INC T VISIT HIGH/URGE NT SEVERITY
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
--- OUTSIDE RECORDS SUMMARY | 2016-12-13 06:40 | External Medical Summary Rpt | CCD ---
Author Author , [facility] Organization [employer] Address Unknown Phone [email or web address] Care Team Providers Care Supervisor Fertilizer Name Role Phone ARNHELEN WILBUR, ARNOLD Unavailable [...] Unavailable CHEL ANGEL, CHEL Unavailable Unavailable [facility] Unavailable Unavailable [facility], [facility], Unavailable Unavailable [facility] Un[facility] Unavailable INC, [facility] Unavailable Unavailable [facility], [facility] Unavailable Unavailable [facility]PITAL P, [facility] PETER HIRA, PETER Unavailable Unavailable HIRA BURRELL TURNER, BURRELL TURNER Unavailable Unavailable [facility], Unavailable Unavailable [facility] ORNELASOPAL PABON, ORNELAS CM Unavailable Unavailable [facility] Unavailable Unavailable GROUP PS, [facility] Unavailable Unavailable [facility], [facility] Unavailable Unavailable [facility]AT, [facility] FIGUEREDO ALVINA, FIGUEREDO Unavailable Unavailable ALVINA JJ JR DWI, JJ Unavailable Unavailable JR DWI LEILANI DON, Unavailable Unavailable [facility], Unavailable Unavailable PLL[facility], [facility] ALBERTO LETICIA, ALBERTO Unavailable Unavailable LETICIA ARTUR, ARTUR Unavailable Unavailable RENUSCH MARQUIS, RENUSCH Unavailable Unavailable MARQUIS FLAVIO MAT, Unavailable Unavailable FLAVIO MAT BENSON KARISHMA, BENSON KARISHMA Unavailable Unavailable SOTINGEANU BRENDON, Unavailable Unavailable [facility] MIC, MIC Unavailable Unavailable NURA WILBUR, NURA Unavailable Unavailable WILBUR TRUE CHRISTOPHER, TRUE CHRISTOPHER Unavailable Unavailable [facility], Unavailable Unavailable [facility] WAESPE MADHURI, WAESPE Unavailable Unavailable MADHURI Purpose Continuity of Care Document - 08-17-2014 through 2016 Problems Code Diagnosis DOS Provider Status J449 CHRONIC 11-03-2016 [facility] DISEASE UNS R0602 SHORTNESS 11-03-2016 [facility] OF BREATH [facility] R1013 EPIGASTRIC 11-03-2016 [facility] PAIN [facility] R109 UNSPECIFIED 11-03-2016 [facility] ABDOMINAL [facility], PAIN [facility] I10 ESSENTIAL 07-30-2016 [facility] P N I2510 [facility] [place] 07-30-2016 [facility] CORONARY [facility] ARTERY W/O HOSPITAL P ANGINA PECTORIS R079 CHEST PAIN 07-30-2016 [facility] UNSPECIFIED PHYSICIANS, [facility] Z720 TOBACCO USE 07-30-2016 [facility] G8918 OTHER ACUTE 03-31-2016 [facility] POSTPROCEDU INC RAL PAIN K4090 UNILAT 03-27-2016 [facility] INGUINAL PHYSICIANS SOHAM W/O GROUP OBST/GANGRE N NOT RECUR [id number] INFECTION 03-27-2016 [facility] FOLLOWING PHYSICIANS, PROCEDURE [facility] INITIAL ENCOUNTER Q05435 ENCOUNTER 03-24-2016 [facility] FOR [facility] PREPROCEDUR INC AL LABORATORY EXAM P19247 MIGRAINE 03-15-2016 [facility] W/O AURA [facility] NOT INTRACT INC W/O STAT MIGRAIN M545 LOW BACK 03-15-2016 [facility] PAIN [facility] INC R200 ANESTHESIA 03-15-2016 [facility] OF SKIN PHYSICIANS, [facility] G76146 OTHER 12-26-2015 ARNOLD WILBUR MIGRAINE INTRACT W/O STATUS MIGRAINOSUS N529 MALE 12-26-2015 ARNOLD WILBUR ERECTILE DYSFUNCTION UNSPECIFIED I209 ANGINA 11-25-2015 [facility] PECTORIS PHYSICIANS UNSPECIFIED GROUP I340 NONRHEUMATI 11-25-2015 [facility] INSUFFICIEN CY I361 NONRHEUMATI 11-25-2015 [facility] TRICUSPID SERV [facility] INSUFFICIEN CY I5189 OTHER 11-25-2015 [facility]-DEFINED [facility] DISEASES R55 SYNCOPE AND 11-25-2015 [facility] COLLAPSE PHYSICIANS GROUP I480 PAROXYSMAL 11-24-2015 [facility] P N [id number] ANAPHYLACTI 11-20-2015 [facility] Dickey REACTION [facility] DUE PEANUTS INC INIT ENCOUNTER [id number] ANAPHYLACTI 11-20-2015 [facility] Dickey SHOCK PHYSICIANS, UNSPECIFIED PLLC INITIAL ENCOUNTER R51 HEADACHE 11-03-2015 [facility] PLLC 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 09-26-2015 [facility] SINGLE [facility] TH[facility]ROID [facility] NODULE R1310 DYSPHAGIA 09-26-2015 [facility] UNSPECIFIED [facility]ICAL [facility]ING [facility] R634 ABNORMAL 09-26-2015 [facility] G08620 EFFUSION 09-18-2015 [place] RIGHT [facility]NEE [facility] J17275 PAIN IN 09-18-2015 [place] RIGHT [facility]NEE [facility]ICAL [facility] [id number] STRAIN UNS 09-18-2015 [facility] MUSCLE PHYSICIANS, TENDON LOW PLLC LEG RT LEG INIT ENC R3749AK UNS INJURY 09-18-2015 [place] RT LOWER MEDICAL LEG INITIAL IMAGING ASS ENCOUNTER [id number] UNSPECIFIED 09-18-2015 [place] INJURY MEDICAL RIGHT ANKLE IMAGING ASS INITIAL ENCOUNTER [id number] UNSPECIFIED 09-18-2015 [place] INJURY MEDICAL RIGHT FOOT IMAGING ASS INITIAL ENCOUNTER E069 THYROIDITIS 08-30-2015 [facility] PHYSICIANS UNSPECIFIED GROUP R946 ABNORMAL 08-20-2015 [facility] RESULTS OF [facility] THYROID INC FUNCTION STUDIES K088 OT SPEC 06-07-2015 [facility] DISORDERS DON TEETH & SUPPORTING STRUCTURES M5022 OT CERV 06-05-2015 [place] DISC ORTHOPEDIC DISPLACEMEN ASSOCIAT T MID-CERVICA L REGION M5116 INTERVERTEB 06-05-2015 [facility] DISC ORTHOPEDIC D/O ASSOCIAT W/RADICULOP ATHY LUMB RGN K648 OTHER 05-18-2015 [facility] G8929 OTHER 03-20-2015 [facility] CHRONIC PHYSICIANS PAIN GROUP S99988 OTHER LONG 03-20-2015 [facility] TERM PHYSICIANS CURRENT GROUP DRUG THERAPY N471 PHIMOSIS 03-07-2015 [facility] PS N481 BALANITIS 03-01-2015 [facility] EMERGENCY PHYS R300 DYSURIA 03-01-2015 [facility] EMERGENCY PHYS N410 ACUTE 02-23-2015 [facility] PROSTATITIS [facility] INC 97728 OTHER 11-22-2014 [facility] V5869 LONG-TERM 11-22-2014 [facility] (CURRENT) [facility] USE OF HOSPITAL OTHER MEDICATIONS 27950 HORDEOLUM 10-22-2014 [facility] V571 OTHER 10-05-2014 [facility] PHYSICAL [facility] THERAPY INC 96397 UNSPECIFIED 09-27-2014 [place] [facility] [place] [address] INJURY OF 09-27-2014 [facility] N[facility]K OTHER AND UNSPECIFIED E9298 LATE 09-27-2014 [place] [facility] EFFECTS OF SERV OTHER FOUNDATION ACCIDENTS 9181 SUPERFICIAL 09-24-2014 [place] [facility] IN[facility]Y OF SERV [facility] E9179 OTHER 09-23-2014 [place] [facility] STRIKING SERV AGAINST [facility]OUND[facility] W/WO SUBSEQUENT FALL V714 OBSERVATION 09-23-2014 [place] [facility] FOLLOWING SERV OTHER [facility]OUND[facility] ACCIDENT 7245 UNSPECIFIED 09-17-2014 [facility] BACKACHE PHYSICIANS, [facility] 7840 HEADACHE 09-17-2014 [facility], [facility] 5259 UNSPECIFIED 09-12-2014 [facility] DISORDER PHYSICIANS, TEETH&SUPPO [facility] RTING STRUCTURES 15632 UNSPECIFIED 08-17-2014 [facility] SITE OF [facility] ANKLE INC SPRAIN AND STRAIN 9597 INJURY 08-17-2014 [facility] OTHER&UNSPE MEDICAL CIFIED KNEE IMAGING ASS LEG ANKLE&FOOT Medications Na ND Rx Da Fi Fi Am Da Di Ph RX Ph St me C No te ll ll ou ys ag ar # ys at rm s nt no ma ic us Or Da si cy ia de te s n re d MS 00 06 07 10 5 00 WA [...] 30 -2 -3 .0 00 ME ti MS 00 4- 1- 00 06 TO ve [...] CY NT HI AN A BI 29 01 03 15 30 00 HO Ac SO 30 -2 -0 .0 00 ME ti MS 00 7- 3- 00 06 TO ve [...] 5 62 AR CE MA TA CY MT NO PH EN 5- 32 5 OX 47 01 03 27 10 00 CL Ac YC 78 -2 -0 .0 00 IN ti OD 10 8- 3- 00 00 IC ve ON 22 20 20 42 -A 90 17 17 04 PH CE 5 93 AR TA MA MT CY NO PH EN 7. 5- 32 5 00 12 02 30 30 00 HO Ac PI 90 -3 -0 .0 00 ME ti RI 44 0- 3- 00 06 TO ve N 04 20 20 07 WN 81 07 16 17 23 3 89 PH MG AR MA CH CY EW AB OF LE CY TA NT BL HI ET AN A GA 12 02 60 30 00 HO Ac BA 00 -3 -0 .0 00 ME ti PE 10 0- 3- 00 06 TO ve NT 00 20 20 07 WN IN 70 16 17 43 3 68 PH 80 AR 0 MA MG CY TA OF BL ET CY NT HI AN A Procedures Procedure [place] [address] ANNAMARIA CERNA ABDOMEN & 7 MEDICAL PELVIS IMAGING W/O ASS CONTRAST MATERIAL RADIOLOGI 19042 ANNAMARIA CERNA C EXAM 7 MEDICAL CHEST 2 IMAGING VIEWS ASS FRONTAL&L ATERAL ECG 02617 [facility] SINHA ROUTINE 7 [facility] W/LEAST P 12 LDS I&[place] [address] [facility] VERGARA TROPONIN 7 [facility] QUANTITAT INC INC ELVIRA ECG 33778 [facility] VERGARA ROUTINE 7 [facility] ECG INC INC W/LEAST 12 LDS TRCG ONLY W/O I&R CREATINE 00604 [facility] VERGARA KINASE 7 [facility] TOTAL INC INC BLOOD 34170 [facility] VERGARA COUNT 7 [facility] COMPLETE INC INC AUTO&AUTO DIFRNTL WBC COMPREHEN 35454 [facility] VERGARA SIVE 7 [facility] METABOLIC INC INC PANEL THER 62675 [facility] VERGARA PROPH/DX 7 [facility] NJX IV INC INC PUSH SINGLE/1S T SBST/DRUG THERAPEUT 54012 [facility] VERGARA IC 7 [facility] INJECTION INC INC IV PUSH EACH NEW DRUG RADIOLOGI 68462 [facility] VERGARA C EXAM 7 [facility] CHEST 2 INC INC VIEWS FRONTAL&L ATERAL CREATINE 98985 [facility] VERGARA KINASE MB 7 [facility] FRACTION INC INC ONLY BASIC 21714 [facility] VERGARA METABOLIC 7 [facility] PANEL INC INC CALCIUM TOTAL COLLECTIO 85894 [facility] VERGARA N VENOUS 7 [facility] BLOOD INC INC VENIPUNCT URE BLOOD 01715 [facility] VERGARA COUNT 7 [facility] COMPLETE INC INC AUTO&AUTO DIFRNTL WBC RPR 1ST 30712 [facility] ARTUR INGUN 7 PHYSICIAN HRNA AGE S GROUP 5 YRS/> REDUCIBLE URNLS DIP 36193 [facility] VERGARA 7 [facility] STICK/TAB INC [place] [address] [facility] VERGARA INFUSION 7 [facility] THERAPY INC INC PROPHYLAX IS/DX EA HOUR ANESTHESI 91686 [facility] H[facility]IA 7 ANESTH [place]PA[place] [address] [facility] VERGARA INFUSION 7 [facility] THERAPY/P INC INC ROPHYLAXI S /DX 1ST TO 1 HR THERAPEUT 65755 [facility] VERGARA IC 7 [facility] INJECTION INC INC IV PUSH EACH NEW DRUG BASIC 14903 URSULA VERGARA METABOLIC 7 [facility] PANEL INC INC CALCIUM TOTAL URNLS DIP 89414 U[facility] VERGARA 7 [facility] STICK/TAB INC INC LET REAGENT AUTO MICROSCOP Y BLOOD 21302 U[facility]A VERGARA COUNT 7 [facility] COMPLETE INC INC AUTO&AUTO DIFRNTL WBC COLLECTIO 76512 U[facility] Cisneros VENOUS 7 [facility] BLOOD INC INC VENIPUNCT URE ECHO 42299 [facility] R-T 6 MEDICAL 2D SERV W/WOM-MOD FOUNDATIO E COMPL N SPEC&COLR D CATH PLMT 32485 [facility] HRT & 6 PHYSICIAN MAT ARTS S GROUP W/NJX & ANGIO IMG S&I RADIOLOGI 88461 [facility] ALL C EXAM 6 MEDICAL CHEST 2 IMAGING VIEWS ASS FRONTAL&L ATERAL ECG 58560 URSULA GARDNER JR ROUTINE 6 [facility] W/LEAST P 12 LDS I&R ONLY PRESSURIZ 04158 U[facility] VERGARA ED/NONPRE 6 [facility] SSURIZED INC INC INHALATIO N TREATMENT THERAPEUT 60326 [facility] VERGARA IC 6 [facility] INJECTION INC INC IV PUSH EACH NEW DRUG THER 24170 [facility] VERGARA PROPH/DX 6 [facility] NJX IV INC INC PUSH SINGLE/1S T SBST/DRUG ECG 21880 U[facility]ULA GARDNER JR ROUTINE 6 [facility] W/LEAST P 12 LDS I&R ONLY ECG 79388 U[facility]A GARDNER JR ROUTINE 6 [facility] W/LEAST P 12 LDS I&R ONLY RADIOLOGI 94225 [facility] C EXAM 6 MEDICAL CHEST 2 IMAGING VIEWS ASS FRONTAL&L ATERAL US SOFT 04978 ANNAMARIA GAUTHEIR TISSUE 6 MEDICAL HEAD & IMAGING NECK REAL ASS TIME IMGE DOCM RADEX 19711 ANNAMARIA GAUTHIER ESOPHAGUS 6 MEDICAL IMAGING ASS RADIOLOGI 91735 ANNAMARIA CERNA ALL C 6 MEDICAL EXAMINATI IMAGING ON ANKLE ASS 2 VIEWS THERAPEUT 74245 [facility] VERGARA IC 6 [facility] PROPHYLAC INC INC TIC/DX INJECTION SUBQ/IM RADIOLOGI 66653 ANNAMARIA CERNA ALL C 6 MEDICAL EXAMINATI IMAGING ON KNEE ASS 1/2 VIEWS RADIOLOGI 05432 [facility] VERGARA C 6 [facility] EXAMINATI INC INC ON KNEE 3 VIEWS RADIOLOGI 74432 [facility] VERGARA C 6 [facility] EXAMINATI INC INC ON FOOT 2 VIEWS RADEX 79660 [facility] VERGARA ANKLE 6 [facility] COMPLETE INC INC MINIMUM 3 VIEWS COMPREHEN 67711 [facility] VERGARA SIVE 6 [facility] METABOLIC INC INC PANEL COLLECTIO 98419 [facility] VERGARA N VENOUS 6 [facility] [place] [address] URSULA VERGARA TRIIODOTH 6 [facility] YRONINE [place] [place] [address] URSULA VERGARA THYROXINE 6 [facility] [place] [address] URSULA VERGARA THYROID 6 [facility] [place] [address] URSULA VERGARA INFUSION 6 [facility] THERAPY/P INC INC ROPHYLAXI S /DX 1ST TO 1 HR ALVEOLOPL 48026 LEILANI LEILANI ASTY EACH 6 DON DON QUADRANT SPECIFY ANESTHESI 64870 ANNAMARIA LYMAN A MALE 6 ANESTHESI WILBUR GENITALIA A GROUP INCL PS OPEN URETHRAL PX ECG 01639 [facility] VERGARA ROUTINE 6 [facility] ECG INC INC W/LEAST 12 LDS TRCG ONLY W/O I&R CULTURE 31507 [facility] VERGARA BACTERIAL 6 [facility] INC INC QUANTTATI VE COLONY COUNT URINE URNLS DIP 40279 [facility] VERGARA 6 [facility] STICK/TAB INC INC LET REAGENT AUTO MICROSCOP Y BLOOD 74647 U[facility]ULA URSULA COUNT 6 [facility] COMPLETE INC INC AUTO&AUTO DIFRNTL WBC COLLECTIO 81391 [facility]A VERGARA N VENOUS 6 [facility] BLOOD INC INC VENIPUNCT URE COMPREHEN 48082 U[facility] VERGARA SIVE 6 [facility] METABOLIC INC INC PANEL URNLS DIP 03876 [facility] VERGARA 5 [facility] STICK/TAB INC INC LET REAGENT AUTO MICROSCOP Y E-STIM G0283 [facility] VERGARA 1/> AREAS 5 [facility] OTH THAN INC INC WND CARE PART TX PLAN APPLICATI 04438 U[facility]ULA VERGARA ON 5 [facility] MODALITY INC INC 1/> AREAS HOT/COLD PACKS APPL 33941 [facility] VERGARA MODALITY 5 [facility] 1/> AREAS INC INC ULTRASOUN D EA 15 MIN THERAPEUT 70039 URSULA VERGARA IC PX 1/> 5 [facility] AREAS INC INC EACH 15 MIN EXERCISES THERAPEUT 80206 URSULA VERGARA IC PX 1/> 5 [facility] AREAS INC INC EACH 15 MIN EXERCISES APPLICATI 27164 URSULA VERGARA ON 5 [facility] MODALITY INC INC 1/> AREAS HOT/COLD PACKS E-STIM G0283 U[facility]A VERGARA 1/> AREAS 5 [facility] OTH THAN INC INC WND CARE PART TX PLAN E-STIM G0283 U[facility]ULA VERGARA 1/> AREAS 5 [facility] OTH THAN INC INC WND CARE PART TX PLAN THERAPEUT 73106 URSULA VERGARA IC PX 1/> 5 [facility] AREAS INC INC EACH 15 MIN EXERCISES APPLICATI 16262 URSULA VERGARA ON 5 [facility] MODALITY INC INC 1/> AREAS HOT/COLD PACKS PHYSICAL 75067 [facility] VERGARA THERAPY 5 [facility] EVALUATIO INC INC N CT ORBIT 06904 [place] TRUE CHRISTOPHER SELLA/POS 5 MEDICAL T SERV FOSSA/EAR FOUNDATIO W/O N CONTRAST MATRL RADEX 10742 U[facility]UL[facility] VERGARA ANKLE 5 [facility] COMPLETE INC INC MINIMUM 3 VIEWS Encounters Encounter Start End Date Code Location Performer Type Date EMERGENCY 02121 A[facility] MILLIGAN DEPT 7 7 PHYSICIAN VISIT S, [facility] H[facility]VERITY& THREAT [facility] URSUL[facility] - 7 7 [facility] OUTPATIEN INC T EMERGENCY 06243 A[facility]EN MILLIGAN DEPT 7 7 PHYSICIAN VISIT S, [facility] HIGH SEVERITY& THREAT FUNJ EMERGENCY 67126 URSULA 7 7 [facility] T VISIT HIGH/URGE NT SEVERITY HOSPITAL URSULA - 7 7 [facility] OUTPATIEN [facility] URSULA - 7 7 [facility] OUTPATIEN [facility] T EMERGENCY 83443 A[facility]EN PAZEY DEPT 7 7 PHYSICIAN VISIT S, [facility] HIGH SEVERITY& THREAT [facility] U[facility] - 7 7 [facility] OUTPATIEN [facility] T OFFICE 66213 [facility] ARTUR OUTRICHY 7 7 PHYSICIAN T NEW 20 S GROUP MINUTES EMERGENCY 46331 URSULA 7 7 [facility] T VISIT LIMITED/M INOR PROB EMERGENCY 01373 A[facility]EN MILLIGAN 7 7 PHYSICIAN DEPARTMEN S, [facility] T VISIT MODERATE SEVERITY HOSPITAL URSULA - 7 7 [facility] OUTPATIEN [facility] T OFFICE 77389 ANGELES REYNOSO OUTPATIEN 6 6 WILBUR WILBUR T NEW 30 MINUTES EMERGENCY 71145 A[facility]EN HAMMONDS DEPT 6 6 PHYSICIAN U BRENDON VISIT S, [facility] HIGH SEVERITY& THREAT [facility] URSULA - 6 6 [facility] OUTPATIEN [facility] T EMERGENCY 05030 U[facility]A 6 6 [facility] DEPARTMEN INC T VISIT HIGH/URGE NT SEVERITY EMERGENCY 95442 [facility] PAYNA 6 6 [facility] T VISIT MODERATE SEVERITY EMERGENCY 22353 [facility] MILLIGAN DEPT 6 6 PHYSICIAN ANGEL VISIT S, [facility] HIGH SEVERITY& THREAT FUNCJ EMERGENCY 28971 AIDEN MILLIGAN DEPT 6 6 PHYSICIAN ANGEL VISIT S, [facility] HIGH SEVERITY& THREAT FUNCJ OFFICE 94987 [facility] FRYMAN OUTPATIEN 6 6 PHYSICIAN EUG T VISIT S GROUP 15 MINUTES OFFICE 89223 [facility] OUTPATIEN 6 6 PHYSICIAN ALVINA T VISIT S GROUP 10 MINUTES EMERGENCY 55829 [facility]IS[facility] LOW/MODER SEVERITY EMERGENCY 86412 AIDEN PABON 6 6 PHYSICIAN DEPARTMEN [facility] T VISIT HIGH/URGE NT SEVERITY HOSPITAL URSULA - 6 6 [facility] OUTPATIEN INC T OFFICE 58674 [facility] FIGUEREDO OUTPATIEN 6 6 PHYSICIAN ALVINA T NEW 30 S GROUP MINUTES HOSPITAL URS[facility]A - 6 6 [facility] OUTPATIEN INC T OFFICE 43357 [facility] [place] OUTPATIEN 6 6 PHYSICIAN EUG T VISIT S GROUP 15 MINUTES HOSPITAL URSULA - 6 6 [facility] OUTPATIEN INC T EMERGENCY 91030 U[facility]A 6 6 [facility] DEPARTMEN INC T VISIT MODERATE SEVERITY EMERGENCY 52535 AIDEN MILLIGAN 6 6 PHYSICIAN ANGEL DEPARTMEN [facility] T VISIT HIGH/URGE NT SEVERITY OFFICE 41035 [facility] OUTPATIEN 6 6 PHYSICIAN EUG T VISIT S GROUP 15 MINUTES OFFICE 08961 [place] OUTPATIEN 6 6 ORTHOPEDI MADHURI T [facility] 45 C MINUTES ASSOCIAT OFFICE 14791 [facility] OUTPATIEN 6 6 PHYSICIAN EUG T VISIT S GROUP 15 MINUTES EMERGENCY 13987 [facility] 6 6 N DEPARTMEN COMMUNTIY T VISIT HOSPITA LOW/MODER SEVERITY HOSPITAL [facility] 6 6 N OUTPATIEN COMMUNTIY T HOSPITA OFFICE 31752 [facility] OUTPATIEN 6 6 PHYSICIAN EUG T VISIT S GROUP 15 MINUTES HOSPITAL U[facility]A - 6 6 [facility] OUTPATIEN [facility]PITAL [facility] 6 6 N OUTPATIEN COMMUNTIY T HOSPITA EMERGENCY 39089 [facility] 6 6 WAYNE SCO DEPARTMEN EMERGENCY T VISIT PHYS HIGH/URGE NT SEVERITY EMERGENCY 07772 [facility] 6 6 N DEPARTMEN COMMUNTIY T VISIT HOSPITA MODERATE SEVERITY HOSPITAL [facility] - 5 5 N OUTPATIEN COMMUNTIY T HOSPITA EMERGENCY 53524 [facility] 5 5 N DEPARTMEN COMMUNTIY T VISIT HOSPITA LOW/MODER SEVERITY EMERGENCY 79447 [facility] 5 5 WAYNE CAMI DEPARTMEN EMERGENCY T VISIT PHYS MODERATE SEVERITY EMERGENCY 45730 [facility] 5 5 [facility] INC T VISIT LIMITED/M INOR [facility] H[facility]PITAL URSULA - 5 5 [facility] OUTPATIEN [facility] T OFFICE 14907 URSULA BURGER OUTPATIEN 5 5 [facility] T VISIT HOSPITAL 15 MINUTES OFFICE 48728 URSULA BURGER OUTPATIEN 5 5 [facility] T VISIT HOSPITAL 15 MINUTES HOSPITAL URSULA - 5 5 [facility] OUTPATIEN [facility] T OFFICE 92487 URSULA BURGER OUTPATIEN 5 5 [facility] T NEW 30 HOSPITAL MINUTES EMERGENCY 10691 VINAY DOMINGUEZ 5 5 MEDICAL LETICIA DEPARTMEN SERV T VISIT FOUNDATIO MODERATE N SEVERITY HOSPITAL UNIVERSIT - 5 5 Y OUTPATI HOSPITAL T EMERGENCY 37491 [facility]OW/MODER SEVERITY OFFICE 04627 ASHANTI TOMPKINS OUTPATIEN 5 5 T VISIT 10 MINUTES OFFICE 35377 VINAY MAINPETER OUTPATIEN 5 5 MEDICAL [facility] T NEW 30 SERV MINUTES FOUNDATIO N EMERGENCY 37081 VINAY VEGA 5 5 MEDICAL DEPARTMEN SERV T VISIT FOUNDATIO HIGH/URGE N NT SEVERITY EMERGENCY 52116 IADEN LAWSON 5 5 [facility] T VISIT LOW/MODER SEVERITY EMERGENCY 22871 AIDEN Cruz 5 5 [facility] T VISIT MODERATE SEVERITY EMERGENCY 92300 AIDEN Cruz 5 5 [facility] T VISIT MODERATE SEVERITY HOSPITAL [facility] - 5 5 [facility] T EMERGENCY 38479 URSULA 5 5 [facility] T VISIT HIGH/URGE NT SEVERITY
--- OUTSIDE RECORDS SUMMARY | 2016-12-13 06:40 | External Medical Summary Rpt | CCD ---
Author Author , [facility] Organization [facility] Address Unknown Phone [email or web address] Immunization Name Date Rout CVX Reac Dose Comm Prov Is Faci e tion ent ider Refu lity Give sed n Infl 09-2 140 0.5 Hist [facility] No [facility] 2-20 mL oric BONNY AID0 a, 16 al AYMA 3938 P-Fr Info N ee rmat ion - Sour ce Unsp ecif ied Tdap 07-2 Intr 115 0.5 Hist [facility] No [facility] , 7-20 amus mL oric 1 1 Adso 15 cula al rbed r Info rmat ion - Sour ce Unsp ecif ied
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
--- OUTSIDE RECORDS SUMMARY | 2016-12-13 06:40 | External Medical Summary Rpt | CCD ---
Author Author , [employer] Organization [employer] Address Unknown Phone [email or web address] Immunization Name Date Rout CVX Reac Dose [...]
--- OUTSIDE RECORDS SUMMARY | 2016-12-13 06:41 | External Medical Summary Rpt ---
Author Author NAPOLEON Benjamin, [employer] Organization [employer] Address Unknown Phone Unavailable Results Drugs identified in Urine by Screen method Observa Value Referen Units Interpr Notes Date tion ce etation Range Positive urine drug screen samples are stored for 7 days. Contact the Lab if confirmation of positives is needed. Ampheta NEGATIV <1000 ng/mL No No Sep 6 mine E informa informa 2017 [Presen tion in tion in ce] in source source Urine data data by Screen method Barbitura <200 ng/mL No No Sep 6 mary lou informati informati 2017 [Mass/vol on in on in ume] in source source Urine by data data Screen method Benzodiaz 200 ng/mL ng/mL No No Sep 6 epines informati informati 2017 [Mass/vol on in on in ume] in source source Serum or data data Plasma by Screen method Cocaine <300 ng/g No No Sep 6 [Mass/vol informati informati 2017 ume] in on in on in Unspecifi source source ed data data specimen Methadone <300 ng/mL No No Sep 6 informati informati 2017 [Mass/vol on in on in ume] in source source Unspecifi data data ed specimen Opiates <300 ng/mL High This is Sep 6 [Mass/vol an 2016 ume] in UNCONFIRM Unspecifi ED ed result. specimen This result is for medicalpu rposes and/or treatment only. Phencycli <25 ng/mL No No Sep 6 dine informati informati 2017 [Mass/vol on in on in ume] in source source Unspecifi data data ed specimen 11-Hydr POSITIV <50 ng/mL Abnorma This is Sep 6 oxy E l an 2017 delta-9 UNCONFI RMED tetrahy result. drocann This abinol result [Presen is for ce] in medical Unspeci purpose fied s specime and/or n treatme nt only. CBC W Auto Differential panel in Blood Observa Value Referen Units Interpr Notes Date tion ce etation Range Basophils 0 - 0.2 K/MM3 Normal No Sep 5 inform2016 [#/volume on in 11:30 PM ] in source Blood by data Automated count Basophils 0.1 - 2.0 % Normal No Sep 5 /100 2016 leukocyte on in 11:30 PM s in source Blood by data Automated count Eosinophi 0.0 - 0.4 K/mm3 Normal No Sep 5 ls 2016 [#/volume on in 11:30 PM ] in source Blood by data Automated count Eosinophi 0.1 - % Normal No Sep 5 ls/100 12.0 inform2016 leukocyte on in 11:30 PM s in source Blood by data Automated count Granulocy 1.3 - 8.0 K/mm3 Normal No Sep 5 mary lou 2016 [#/volume on in 11:30 PM ] in source Blood by data Automated count Granulocy 37.0 - % Normal No Sep 5 mary lou/100 80.0 2016 leukocyte on in 11:30 PM s in source Blood by data Automated count Hematocri 42.0 - % Low No Sep 5 t [Volume 52.0 ati 2016 on in 11:30 PM Fraction] source of Blood data Hemoglobi 14.1 - g/dL Low No Sep 5 n 18.0 2016 [Mass/vol on in 11:30 PM ume] in source Blood data Lymphocyt 0.7 - 4.5 K/mm3 Normal No Sep 5 es 2016 [#/volume on in 11:30 PM ] in source Unspecifi data ed specimen by Automated count Lymphocyt 10 - 50 % Normal No Sep 5 es 2016 [#/volume on in 11:30 PM ] in source Unspecifi data ed specimen by Automated count Erythrocy 27 - 31.2 pg Normal No Sep 5 te mean 2016 corpuscul on in 11:30 PM ar source hemoglobi data n [Entitic mass] Erythrocy 31.8 - g/dl Normal No Sep 5 te mean 35.4 inform2016 corpuscul on in 11:30 PM ar source hemoglobi data n concentra tion [Mass/vol ume] by Automated count Erythrocy 82.2 - fl Normal No Sep 5 te mean 97.8 inform2016 corpuscul on in 11:30 PM ar volume source [Entitic data volume] by Automated count Monocytes 0.1 - 1.0 K/mm3 Normal No Sep 5 2016 [#/volume on in 11:30 PM ] in source Blood by data Automated count Monocytes 1.7 - 9.3 % Normal No Sep 5 /100 2016 leukocyte on in 11:30 PM s in source Blood by data Automated count Platelet 7.4 - fl Normal No Sep 5 mean 10.4 2016 volume on in 11:30 PM [Entitic source volume] data in Blood by Automated count Platelets 142 - 424 K/mm3 No No Sep 5 informati 2016 [#/volume on in on in 11:30 PM ] in source source Blood data data Erythrocy 4.6 - 6.2 M/mm3 Low No Sep 5 mary lou 2016 [#/volume on in 11:30 PM ] in source Amniotic data fluid Erythrocy 11.5 - % Normal No Sep 5 te 17.5 2016 distribut on in 11:30 PM ion width source [Entitic data volume] by Automated count Leukocyte 4.8 - K/MM3 Normal No Sep 5 s 10.8 2016 [#/volume on in 11:30 PM ] in source Blood data Erythrocyte sedimentation rate by Westergren method Observa Value Referen Units Interpr Notes Date tion ce etation Range Erythrocy 0 - 15 mm/hr Normal No Sep 5 te 2016 sedimenta on in 11:30 PM tion rate source by data Westergre n method INR in Blood by Coagulation assay Observa Value Referen Units Interpr Notes Date tion ce etation Range IS PATIENT ON ANTICOAGULANTS? N INR in 0.9 - 1.1 No Normal INDICATIO Sep 5 Blood by informati 2016 Coagulati on in 11:30 PM on assay source INR data RANGETHER APY FOR DVT, PE, ATRIAL FIB; 2.0 - 3.0PROPHY LAXIS FOR VTETHERAP Y FOR MECHANICA L HEART 2.5 - 3.5VALVE; PREVENTIO N OF SYSTEMICE MBOLISM SECONDARY TO AMI Prothromb 9.4 - SECONDS Normal No Sep 5 in time 11.8 2016 (PT) in on in 11:30 PM Platelet source poor data plasma by Coagulati on assay Activated partial thrombplastin time (aPTT) in Platelet poor plasma by Coagulation assay Observa Value Referen Units Interpr Notes Date tion ce etation Range IS PATIENT ON ANTICOAGULANTS? N Activated 23.6 - SECONDS Normal No Sep 5 partial 34.0 informati 2017 thrombpla on in 11:30 PM stin time source (aPTT) data in Platelet poor plasma by Coagulati on assay Urinalysis dipstick W Reflex Microscopic panel in Urine Observa Value Referen Units Interpr Notes Date tion ce etation Range Appeara CLEAR CLEAR No No No Sep 5 nce of informa informa informa 2017 Urine tion in tion in tion in 11:20 source source source PM data data data Bacteri 1+ O No No No Sep 5 a informa informa informa 2017 [Presen tion in tion in tion in 11:20 ce] in source source source PM Urine data data data sedimen t by Light microsc opy Bilirub NEGATIV NEG No No No Sep 5 in E informa informa informa 2016 [Presen tion in tion in tion in 11:20 ce] in source source source PM Urine data data data by Test strip Erythro NEGATIV NEG No No No Sep 5 cytes E informa informa informa 2017 [Presen tion in tion in tion in 11:20 ce] in source source source PM Urine data data data Color YELLOW YELLOW No No No Sep 5 of informa informa informa 2017 Urine tion in tion in tion in 11:20 source source source PM data data data Glucose NEG No No No Sep 5 [Mass/vol informati informati informati 2017 ume] in on in on in on in 11:20 PM Urine by source source source Test data data data strip Ketones NEGATIV NEG mg/dL No No Sep 5 E informa informa 2017 [Presen tion in tion in 11:20 ce] in source source PM Urine data data by Automat ed test strip Mucus NEGATIV NEG No No No Sep 5 [Presen E informa informa informa 2017 ce] in tion in tion in tion in 11:20 Urine source source source PM sedimen data data data t by Light microsc opy Mucus 1+ NONE No No No Sep 5 [Presen informa informa informa 2017 ce] in tion in tion in tion in 11:20 Urine source source source PM sedimen data data data t by Light microsc opy Nitrite NEGATIV NEG No No No Sep 5 E informa informa informa 2017 [Presen tion in tion in tion in 11:20 ce] in source source source PM Urine data data data by Test strip pH of 5.0 - 8.5 No Normal No Sep 5 Urine informati informati 2017 on in on in 11:20 PM source source data data Protein NEG mg/dL No No Sep 5 [Mass/vol informati informati 2017 ume] in on in on in 11:20 PM Urine by source source Automated data data test strip Specific 1.005 - No Normal No Sep 5 gravity 1.030 informati informati 2017 of Urine on in on in 11:20 PM source source data data Epithel OCC OCC #/hpf No No Sep 5 ial informa informa 2017 cells.s tion in tion in 11:20 quamous source source PM data data [Presen ce] in Urine sedimen t by Microsc opy high power field Urobili 0.2 NEG E.U./dL No No Sep 5 nogen informa informa 2017 [Presen tion in tion in 11:20 ce] in source source PM Urine data data by Test strip Leukocy [3 O wbc/hpf No No Sep 5 mary lou wbc/hpf informa informa 2017 [#/volu ; 5 tion in tion in 11:20 me] in wbc/hpf source source PM Urine ] data data Urinalysis dipstick W Reflex Microscopic panel in Urine Observa Value Referen Units Interpr Notes Date tion ce etation Range Appeara CLEAR CLEAR No No No Sep 5 nce of informa informa informa 2017 Urine tion in tion in tion in 11:20 source source source PM data data data Bilirub NEGATIV NEG No No No Sep 5 in E informa informa informa 2017 [Presen tion in tion in tion in 11:20 ce] in source source source PM Urine data data data by Test strip Erythro NEGATIV NEG No No No Sep 5 cytes E informa informa informa 2017 [Presen tion in tion in tion in 11:20 ce] in source source source PM Urine data data data Color YELLOW YELLOW No No No Sep 5 of informa informa informa 2017 Urine tion in tion in tion in 11:20 source source source PM data data data Glucose NEG No No No Sep 5 [Mass/vol informati informati informati 2017 ume] in on in on in on in 11:20 PM Urine by source source source Test data data data strip Ketones NEGATIV NEG mg/dL No No Sep 5 E informa informa 2016 [Presen tion in tion in 11:20 ce] in source source PM Urine data data by Automat ed test strip Mucus NEGATIV NEG No No No Sep 5 [Presen E informa informa informa 2016 ce] in tion in tion in tion in 11:20 Urine source source source PM sedimen data data data t by Light microsc opy Nitrite NEGATIV NEG No No No Sep 5 E informa informa informa 2016 [Presen tion in tion in tion in 11:20 ce] in source source source PM Urine data data data by Test strip pH of 5.0 - 8.5 No Normal No Sep 5 Urine informati informati 2017 on in on in 11:20 PM source source data data Protein NEG mg/dL No No Sep 5 [Mass/vol informati informati 2017 ume] in on in on in 11:20 PM Urine by source source Automated data data test strip Specific 1.005 - No Normal No Sep 5 gravity 1.030 informati informati 2016 of Urine on in on in 11:20 PM source source data data Urobili 0.2 NEG E.U./dL No No Sep 5 nogen informa informa 2016 [Presen tion in tion in 11:20 ce] in source source PM Urine data data by Test strip CBC W Auto Differential panel in Blood Observa Value Referen Units Interpr Notes Date tion ce etation Range Basophils 0 - 0.2 K/MM3 Normal No Shad 1 informati 2016 1:22 [#/volume on in AM ] in source Blood by data Automated count Basophils 0.1 - 2.0 % Normal No Shad 1 /100 informati 2016 1:22 leukocyte on in AM s in source Blood by data Automated count Eosinophi 0.0 - 0.4 K/mm3 Normal No Shad 1 ls informati 2016 1:22 [#/volume on in AM ] in source Blood by data Automated count Eosinophi 0.1 - % Normal No Jul 1 ls/100 12.0 informati 2016 1:22 leukocyte on in AM s in source Blood by data Automated count Granulocy 1.3 - 8.0 K/mm3 Normal No Shad 1 mary lou informati 2017 1:22 [#/volume on in AM ] in source Blood by data Automated count Granulocy 37.0 - % Normal No Shad 1 mary lou/100 80.0 informati 2017 1:22 leukocyte on in AM s in source Blood by data Automated count Hematocri 42.0 - % Normal No Jul 30 t [Volume 52.0 informati 2017 1:22 on in AM Fraction] source of Blood data Hemoglobi 14.1 - g/dL Normal No Jul 30 n 18.0 informati 2017 1:22 [Mass/vol on in AM ume] in source Blood data Lymphocyt 0.7 - 4.5 K/mm3 Normal No Jul 30 es informati 2017 1:22 [#/volume on in AM ] in source Unspecifi data ed specimen by Automated count Lymphocyt 10 - 50 % Normal No Jul 30 es informati 2017 1:22 [#/volume on in AM ] in source Unspecifi data ed specimen by Automated count Erythrocy 27 - 31.2 pg Normal No Jul 30 te mean informati 2017 1:22 corpuscul on in AM ar source hemoglobi data n [Entitic mass] Erythrocy 31.8 - g/dl Normal No Jul 30 te mean 35.4 informati 2017 1:22 corpuscul on in AM ar source hemoglobi data n concentra tion [Mass/vol ume] by Automated count Erythrocy 82.2 - fl Normal No Jul 30 te mean 97.8 informati 2017 1:22 corpuscul on in AM ar volume source [Entitic data volume] by Automated count Monocytes 0.1 - 1.0 K/mm3 Normal No Shad 1 informati 2017 1:22 [#/volume on in AM ] in source Blood by data Automated count Monocytes 1.7 - 9.3 % Normal No Shad 1 /100 informati 2017 1:22 leukocyte on in AM s in source Blood by data Automated count Platelet 7.4 - fl Low No Jul 30 mean 10.4 informati 2017 1:22 volume on in AM [Entitic source volume] data in Blood by Automated count Platelets 142 - 424 K/mm3 Normal No Shad 1 informati 2017 1:22 [#/volume on in AM ] in source Blood data Erythrocy 4.6 - 6.2 M/mm3 Normal No Jul 1 mary lou informati 2017 1:22 [#/volume on in AM ] in source Amniotic data fluid Erythrocy 11.5 - % Normal No Jul 30 te 17.5 informati 2016 1:22 distribut on in AM ion width source [Entitic data volume] by Automated count Leukocyte 4.8 - K/MM3 Normal No Jul 1 s 10.8 informati 2016 1:22 [#/volume on in AM ] in source Blood data CT MAXIOFACIAL WO CONTRAST Observa Value Referen Units Interpr Notes Date ti ce etation Range Examina No No No No Jun 19 tion: informa informa informa informa 2013 CT tion in tion in tion in tion in 7:02 AM maxillo source source source source facial data data data data region\ .br\Cli nical History : Surgery and facial injury, headach e.\.br\ Techniq ue: Sagitta l and coronal images reforma tted.\. br\Find ings/Im pressio n: Postsur gical changes along the orbital wall anterio r\.br\a nd lateral margins on\.br\ the left side and along the left maxilla ry sinus wall anterio rly.\.b r\There is no evidenc e of fractur e or disloca tions. Paranas al sinuses are\.br \clear. \.br\Th ere is no definit e acute abnorma lity.\. br\llc XR THORACIC SPINE 2 VW Observa Value Referen Units Interpr Notes Date ti ce etation Range Examina No No No No Jun 19 tion: informa informa informa informa 2013 Thoraci tion in tion in tion in tion in 6:48 AM c spine source source source source three data data data data views\. br\Clin ical History : Back pain.\. br\Find ings: There is no fractur e or destruc tive process . The pedicle s are\.br \intact . The posteri or rib articul ations are unremar kable.\ .br\Imp ression : No acute or signifi cant abnorma lity.\. br\Note : If needed additio nal evaluat ion would be helpful .\.br\l lc CT HEAD WO CONTRAST Observa Value Referen Units Interpr Notes Date tion ce etation Range Examina No No No No Jun 19 tion: informa informa informa informa 2013 CT head tion in tion in tion in tion in 6:48 AM source source source source without data data data data contras t\.br\C linical History : Injury, headach e.\.br\ Techniq ue: Axial CT imaging through the head is perform ed without \.br\ut ilizati on\.br\ of intrave nous contras t.\.br\ Finding s: There is no evidenc e of intracr anial hemorrh age or mass effect. \.br\Th e\.br\v entricu lar system is within normal limits for size and configu ration. \.br\Gr ay-whit e differe ntiatio n is maintai gisella. The mastoid air cells and\.br \visual ized\.b r\paran shi sinuses are clear. No acute osseous abnorma lity is identif ied.\.b r\Impre ssion: No acute intracr anial process . Post surgica l changes left\.b r\maxil morteza sinus anterio r wall.\. br\llc XR CERVICAL SPINE AP/LAT 2OR3 VIEWS Observa Value Referen Units Interpr Notes Date tion ce etation Range Examina No No No No Jun 19 tion: informa informa informa informa 2013 Cervica tion in tion in tion in tion in 6:48 AM l spine source source source source 3 data data data data views\. br\Clin ical History : Neck pain.\. br\Find ings: There is no fractur e or destruc tive process . The disc spaces\ .br\are \.br\ma intaine d. The spinous process es are intact. The pedicle s are intact. \.br\Im pressio n: No acute or signifi cant abnorma lity. Limited exam.\. br\Note : If pain and/or clinica l concern persist s, conside r additio nal\.br \imagin g\.br\e valuati on.\.br \llc
--- OUTSIDE RECORDS SUMMARY | 2016-12-13 06:41 | External Medical Summary Rpt ---
Author Author N[employer] Benjamin, [employer] Organization [employer] Address Unknown Phone Unavailable [...]
--- NOTE | 2016-12-13 06:59 | RADIOLOGY REPORT PS360 ---
CHEST(2 VIEWS-NOT PORTABLE) HISTORY: chest pain ORDERING PHYSICIAN: Juan Pablo Aj MD PATIENT AGE: 51 years COMPARISON: 11/03/2016 FINDINGS: The cardiomediastinal silhouette and pulmonary vascularity are within normal limits. Mild COPD. No lobar consolidation or collapse. No acute bony anomalies. IMPRESSION: Chronic change with COPD, no acute finding.
== END 2016-12-13 00:41 | disposition home or self-care (01) ==
LOC: ER 22:44
PROVIDERS: Emergency Medicine
DX: R07.2 Precordial pain (principal); R10.13 Epigastric pain; Z79.82 Long term (current) use of aspirin; F17.210 Nicotine dependence, cigarettes, uncomplicated; I10 Essential (primary) hypertension; I25.10 Atherosclerotic heart disease of native coronary artery without angina pectoris

== ENCOUNTER 2017-01-08 09:00 | Emergency (ER) | payer MEDICAID ==
[~2017-01-08] VITALS: Ht 175.3 cm; Wt 63.5 kg
[~2017-01-08 09:00] MED LIST changes: +PROTONIX 40MG T40 MG PO
--- OUTSIDE RECORDS SUMMARY | 2017-01-08 09:07 | External Medical Summary Rpt | CCD ---
Author Author , N[facility] Organization N[facility] Address Unknown Phone [email or web address] Purpose Continuity of Care Document - 06-19-2013 through 2016 Results Labs Lab Lab Date Result Refere Interp Status Commen Order Detail nces retati t Range on Glucose capillary blood glucometer (12-13-2016 00:30) Glucose --2 = 109 70-110 complet 017 mg/dl ed capilla 00:[address] Urinalysis with microscopy (12-12-2016 23:30) Urine 12-12-2 3 - 5 O complet leukocy 017 wbc/hpf ed mary lou 23:30 count (number /volume ) Urine 12-12-2 0.2 0.2 NEG complet urobili 017 L ed nogen 23:30 E.U./dL detecti on by test str Urine 12-12-2 = 1.015 1.005-1 complet specifi 017 .030 ed c 23:30 gravity measure ment Urine 12-12-2 = TRACE NEG complet protein 017 mg/dL ed 23:30 measure ment by automat ed t Urine --2 = 6.5 5.0-8.5 complet pH 017 ed 23:30 Urine --2 NEGATIV NEG complet nitrite 017 E ed 23:30 NEGATIV detecti E L on by test strip Mucus 12-12-2 4+ 4+ L NONE complet detecti 017 ed on in 23:30 urine sedimen t by lig Mucus --2 NEGATIV NEG complet detecti 017 E ed on in 23:30 NEGATIV urine E L sedimen t by lig Urine --2 1+ 1+ L NEG complet ketones 017 mg/dL ed 23:30 detecti on by automat ed mary lou Glucose -14-2 = NEG complet ur 017 NEGATIV ed test 23:30 E strip Urine 12-12-2 YELLOW YELLOW complet color 017 YELLOW ed 23:30 L Urine -14-2 NEGATIV NEG complet blood 017 E ed detecti 23:30 NEGATIV on E L Urine NEGATIV NEG complet total 017 E ed bilirub 23:30 NEGATIV in E L detecti on by test Amorpho TRACE NONE complet us 017 TRACE L ed sedimen 23:30 t detecti on in urine se Urine CLEAR CLEAR complet appeara 017 CLEAR L ed nce 23:30 determi nation Urine 9-analyte drugs of abuse screening (12-12-2016 23:30) Comment: Positive urine drug screen samples are stored for 7 days. Comment: Contact the Lab if confirmation of positives is needed. 11-hydr POSITIV <50 complet oxy 017 E ed delta-9 23:30 POSITIV E L tetrahy ng/mL drocann abinol Comment: This is an UNCONFIRMED result. This result is for medical Comment: purposes and/or treatment only. Phencyc = <25 complet lidine 017 NEGATIV ed measure 23:30 E ng/mL ment (mass/v olume) Opiates = <300 complet 017 POSITIV ed measure 23:30 E ng/mL ment (mass/v olume) Comment: This is an UNCONFIRMED result. This result is for medical Comment: purposes and/or treatment only. Methado = <300 complet ne 017 NEGATIV ed measure 23:30 E ng/mL ment (mass/v olume) Cocaine = <300 complet 017 NEGATIV ed measure 23:30 E ng/g ment (mass/v olume) Serum = 200 complet or 017 NEGATIV ng/mL ed plasma 23:30 E ng/mL benzodi azepine s measure m Urine = <200 complet barbitu 017 NEGATIV ed rates 23:30 E ng/mL measure ment by screen Urine NEGATIV <1000 complet ampheta 017 E ed mine 23:30 NEGATIV screeni E L ng test ng/mL Drugs identified in Urine by Screen method (12-12-2016 23:30) Ampheta NEGATIV <1000 complet mine 017 E ed [Presen 23:30 ce] in Urine by Screen method 11-Hydr 10-14-2 POSITIV <50 Abnorma complet oxy 017 E l ed delta-9 23:30 tetrahy drocann abinol [Presen ce] in Unspeci fied specime n Urinalysis dipstick W Reflex Microscopic panel in Urine (12-12-2016 23:30) Amorpho 12-12-2 TRACE NONE complet us 017 ed sedimen 23:30 t [Presen ce] in Urine sedimen t by Light microsc opy Mucus 12-12-2 4+ NONE complet [Presen 017 ed ce] in 23:30 Urine sedimen t by Light microsc opy Leukocy 12-12-2 3-5 O complet mary lou 017 wbc/hpf ed [#/volu 23:30 me] in Urine Urinalysis dipstick W Reflex Microscopic panel in Urine (12-12-2016 23:30) Appeara CLEAR CLEAR complet nce of 017 ed Urine 23:30 Bilirub 12-12-2 NEGATIV NEG complet in 017 E ed [Presen 23:30 ce] in Urine by Test strip Erythro 12-12-2 NEGATIV NEG complet cytes 017 E ed [Presen 23:30 ce] in Urine Color 12-12-2 YELLOW YELLOW complet of 017 ed Urine 23:30 Ketones 12-12-2 1+ NEG Abnorma complet 017 l ed [Presen 23:30 ce] in Urine by Automat ed test strip Mucus 12-12-2 NEGATIV NEG complet [Presen 017 E ed ce] in 23:30 Urine sedimen t by Light microsc opy Nitrite 12-12-2 NEGATIV NEG complet 017 E ed [Presen 23:30 ce] in Urine by Test strip Urobili --2 0.2 NEG complet nogen 017 ed [Presen 23:30 ce] in Urine by Test strip Comprehensive metabolic panel (12-12-2016 22:50) Protein --2 = 7.8 6.4-8.2 complet total 017 gm/dL ed ser/rené 22:50 s ALT 12-12- = 15 12-78 complet (SGPT) 017 U/L ed ser/rené 22:50 s Serum 12-12- = 16 15-37 complet or 017 U/L ed plasma 22:50 asparta te aminotr ansfera Serum = 140 136-145 complet sodium 017 mmoL/L ed measure 22:50 ment Serum = 4.0 3.5-5.1 complet potassi 017 mmoL/L ed um 22:50 measure ment Serum = 48 74-106 complet or 017 mg/dL ed plasma 22:50 glucose measure ment (mas Comment: CALLED TO CC YECENIA IN ER 12/12/16 2320 JS Serum = 3.9 1.3-3.2 complet globuli 017 gm/dL ed n 22:50 measure ment (mass/v olume) Estimat = 71 >60 complet ed 017 ML/MIN ed glomeru 22:50 lar filtrat ion rate (GF Comment: REFERENCE RANGE: >60 ML/MIN/1.73 SQUARE METERS Comment: If this patient is -[place], then multiply the Comment: result by 1.210. Estimat = 91 50-200 complet ion of 017 ML/MIN ed creatin 22:50 ine renal clearan ce Serum = 1.1 0.70-1. complet or 017 mg/dL 30 ed plasma 22:50 creatin ine measure ment ( Carbon = 32 21.0-32 complet dioxide 017 mmoL/L .0 ed 22:50 measure ment Serum = 105 98-107 complet or 017 mmoL/L ed plasma 22:50 chlorid e measure ment (mo Serum = 8.9 8.5-10. complet or 017 mg/dL 1 ed plasma 22:50 calcium measure ment (mas Serum = 14 7-18 complet or 017 mg/dL ed plasma 22:50 urea nitroge n measure men Serum = 0.5 0.2-1.0 complet or 017 mg/dL ed plasma 22:50 total bilirub in measure m Serum = 79 46-116 complet or 017 U/L ed plasma 22:50 alkalin e phospha tase vick Serum = 3.9 3.4-5.0 complet or 017 gm/dL ed plasma 22:50 albumin measure ment (mas Serum = 1.0 1.1-1.8 complet or 017 ed plasma 22:50 albumin /globul in mass ra Cardiac enzymes (12-12-2016 22:50) Serum < 0.02 0.00-0. complet or 017 ng/mL 06 ed plasma 22:50 troponi n i.cardi ac measu Serum = 0.5 0.0-3.6 complet or 017 ng/mL ed plasma 22:50 creatin e kinase MB measu Serum = 0.7 0-4.0 complet or 017 U/L ed plasma 22:50 creatin e kinase MB (CK-M Serum = 69 39-308 complet or 017 U/L ed plasma 22:50 creatin e kinase measure m CBC w auto diff (12-12-2016 22:50) Blood = 10.5 4.8-10. complet leukocy 017 K/MM3 8 ed mary lou 22:50 count (number /volume ) Automat = 13.9 11.5-17 complet ed 017 % .5 ed erythro 22:50 cyte distrib ution width Red = 4.54 4.6-6.2 complet blood 017 M/mm3 ed cell 22:50 count Blood = 196 142-424 complet platele 017 K/mm3 ed t count 22:50 Automat = 8.6 7.4-10. complet ed 017 fl 4 ed blood 22:50 platele t mean volume vick [place] % = 7.5 % 1.7-9.3 complet 017 ed 22:50 Absolut = 0.8 0.1-1.0 complet e 017 K/mm3 ed monocyt 22:50 e count Automat = 94.1 82.2-97 complet ed 017 fl .8 ed erythro 22:50 cyte mean corpusc ular v Automat = 32.7 31.8-35 complet ed 017 g/dl .4 ed erythro 22:50 cyte mean corpusc ular h Mean = 30.8 27-31.2 complet corpusc 017 pg ed ular 22:50 hemoglo bin (MCH) determ Lymphoc 10-14-2 = 18.0 10-50 complet yte 017 % ed count, 22:50 blood, automat ed Absolut = 1.9 0.7-4.5 complet e 017 K/mm3 ed lymphoc 22:50 yte count Blood = 14.0 14.1-18 complet hemoglo 017 g/dL .0 ed bin 22:50 measure ment (mass/v olum Blood = 42.7 42.0-52 complet hematoc 017 % .0 ed rit 22:50 (volume fractio n) Granulo = 72.9 37.0-80 complet cyte 017 % .0 ed percent 22:50 age Blood = 7.6 1.3-8.0 complet granulo 017 K/mm3 ed cytes 22:50 automat ed count (numb Automat = 1.0 % 0.1-12. complet ed 017 0 ed blood 22:50 eosinop hils/10 0 leukocy t Automat = 0.1 0.0-0.4 complet ed 017 K/mm3 ed blood 22:50 eosinop hil count Baso % = 0.5 % 0.1-2.0 complet 017 ed 22:50 Automat = 0.1 0-0.2 complet ed 017 K/MM3 ed blood 22:50 basophi l count (count/ vo Drugs identified in Urine by Screen method [...]
--- OUTSIDE RECORDS SUMMARY | 2017-01-08 09:07 | External Medical Summary Rpt | CCD ---
Author Author , N[facility]LEON Organization N[facility] Address Unknown Phone [email or web address] Purpose Continuity of Care Document - 06-19-2013 [...] SQUARE METERS Comment: If this patient is -[place], then multiply the Comment: result by 1.210. [...] blood 22:50 platele t mean volume vick [place] % = 7.5 % 1.7-9.3 complet 017 [...]
--- OUTSIDE RECORDS SUMMARY | 2017-01-08 09:08 | External Medical Summary Rpt | CCD ---
Author Author , N[facility]OLEON Organization N[facility] Address Unknown Phone [email or web address] Immunization Name Date Rout CVX Reac Dose [...]
--- OUTSIDE RECORDS SUMMARY | 2017-01-08 09:08 | External Medical Summary Rpt | CCD ---
Author Author [facility] Organization [facility] Address Unknown Phone Unavailable Purpose Continuity of Care Document - through 2016
--- OUTSIDE RECORDS SUMMARY | 2017-01-08 09:08 | External Medical Summary Rpt | CCD ---
Author Author , N[facility]LEON Organization N[facility] Address Unknown Phone [email or web address] Immunization Name Date Rout CVX Reac Dose [...]
--- OUTSIDE RECORDS SUMMARY | 2017-01-08 09:09 | External Medical Summary Rpt ---
Author Author N[facility]ON Benjamin, [employer] [employer] Organization [employer] Address Unknown Phone Unavailable Results Glucose [Mass/volume] in Capillary blood by Glucometer Observa Value Referen Units Interpr Notes Date tion ce etation Range Glucose 70 - 110 mg/dl Normal No Nov 15 [Mass/vol informati 2016 ume] in on in 12:30 AM Capillary source blood by data Glucomete r Drugs identified in Urine by Screen method Observa Value Referen Units Interpr Notes Date tion ce etation Range Positive urine drug screen samples are stored for 7 days. Contact the Lab if confirmation of positives is needed. Ampheta NEGATIV <1000 ng/mL No No Dec 12 mine E informa informa 2017 [Presen tion in tion in 11:30 ce] in source source PM Urine data data by Screen method Barbitura <200 ng/mL No No Dec 12 mary lou informati informati 2017 [Mass/vol on in on in 11:30 PM ume] in source source Urine by data data Screen method Benzodiaz 200 ng/mL ng/mL No No Dec 12 epines informati informati 2017 [Mass/vol on in on in 11:30 PM ume] in source source Serum or data data Plasma by Screen method Cocaine <300 ng/g No No Dec 12 [Mass/vol informati informati 2016 ume] in on in on in 11:30 PM Unspecifi source source ed data data specimen Methadone <300 ng/mL No No Dec 12 informati informati 2017 [Mass/vol on in on in 11:30 PM ume] in source source Unspecifi data data ed specimen Opiates <300 ng/mL High This is Dec 12 [Mass/vol an 2016 ume] in UNCONFIRM 11:30 PM Unspecifi ED ed result. specimen This result is for medicalpu rposes and/or treatment only. Phencycli <25 ng/mL No No Dec 12 dine informati informati 2017 [Mass/vol on in on in 11:30 PM ume] in source source Unspecifi data data ed specimen 11-Hydr POSITIV <50 ng/mL Abnorma This is Dec 12 oxy E l an 2017 delta-9 UNCONFI 11:30 RMED PM tetrahy result. drocann This abinol result [Presen is for ce] in medical Unspeci purpose fied s specime and/or n treatme nt only. Urinalysis dipstick W Reflex Microscopic panel in Urine Observa Value Referen Units Interpr Notes Date tion ce etation Range Appeara CLEAR CLEAR No No No Dec 12 nce of informa informa informa 2017 Urine tion in tion in tion in 11:30 source source source PM data data data Amorpho TRACE NONE No No No Dec 12 us informa informa informa 2017 sedimen tion in tion in tion in 11:30 t source source source PM [Presen data data data ce] in Urine sedimen t by Light microsc opy Bilirub NEGATIV NEG No No No Dec 12 in E informa informa informa 2016 [Presen tion in tion in tion in 11:30 ce] in source source source PM Urine data data data by Test strip Erythro NEGATIV NEG No No No Dec 12 cytes E informa informa informa 2016 [Presen tion in tion in tion in 11:30 ce] in source source source PM Urine data data data Color YELLOW YELLOW No No No Dec 12 of informa informa informa 2016 Urine tion in tion in tion in 11:30 source source source PM data data data Glucose NEG No No No Dec 12 [Mass/vol informati informati informati 2017 ume] in on in on in on in 11:30 PM Urine by source source source Test data data data strip Ketones 1+ NEG mg/dL Abnorma No Dec 12 l informa 2016 [Presen tion in 11:30 ce] in source PM Urine data by Automat ed test strip Mucus NEGATIV NEG No No No Dec 12 [Presen E informa informa informa 2016 ce] in tion in tion in tion in 11:30 Urine source source source PM sedimen data data data t by Light microsc opy Mucus 4+ NONE No No No Dec 12 [Presen informa informa informa 2016 ce] in tion in tion in tion in 11:30 Urine source source source PM sedimen data data data t by Light microsc opy Nitrite NEGATIV NEG No No No Dec 12 E informa informa informa 2016 [Presen tion in tion in tion in 11:30 ce] in source source source PM Urine data data data by Test strip pH of 5.0 - 8.5 No Normal No Dec 12 Urine informati informati 2016 on in on in 11:30 PM source source data data Protein NEG mg/dL High No Dec 12 [Mass/vol informati 2016 ume] in on in 11:30 PM Urine by source Automated data test strip Specific 1.005 - No Normal No Dec 12 gravity 1.030 informati informati 2016 of Urine on in on in 11:30 PM source source data data Urobili 0.2 NEG E.U./dL No No Dec 12 nogen informa informa 2016 [Presen tion in tion in 11:30 ce] in source source PM Urine data data by Test strip Leukocy [3 O wbc/hpf No No Dec 12 mary lou wbc/hpf informa informa 2016 [#/volu ; 5 tion in tion in 11:30 me] in wbc/hpf source source PM Urine ] data data Urinalysis dipstick W Reflex Microscopic panel in Urine Observa Value Referen Units Interpr Notes Date tion ce etation Range Appeara CLEAR CLEAR No No No Dec 12 nce of informa informa informa 2016 Urine tion in tion in tion in 11:30 source source source PM data data data Bilirub NEGATIV NEG No No No Dec 12 in E informa informa informa 2016 [Presen tion in tion in tion in 11:30 ce] in source source source PM Urine data data data by Test strip Erythro NEGATIV NEG No No No Dec 12 cytes E informa informa informa 2016 [Presen tion in tion in tion in 11:30 ce] in source source source PM Urine data data data Color YELLOW YELLOW No No No Dec 12 of informa informa informa 2016 Urine tion in tion in tion in 11:30 source source source PM data data data Glucose NEG No No No Dec 12 [Mass/vol informati informati informati 2016 ume] in on in on in on in 11:30 PM Urine by source source source Test data data data strip Ketones 1+ NEG mg/dL Abnorma No Dec 12 l informa 2016 [Presen tion in 11:30 ce] in source PM Urine data by Automat ed test strip Mucus NEGATIV NEG No No No Dec 12 [Presen E informa informa informa 2016 ce] in tion in tion in tion in 11:30 Urine source source source PM sedimen data data data t by Light microsc opy Nitrite NEGATIV NEG No No No Dec 12 E informa informa informa 2016 [Presen tion in tion in tion in 11:30 ce] in source source source PM Urine data data data by Test strip pH of 5.0 - 8.5 No Normal No Dec 12 Urine informati 2016 on in on in 11:30 PM source source data data Protein NEG mg/dL High No Dec 12 [Mass/vol ati 2016 ume] in on in 11:30 PM Urine by source Automated data test strip Specific 1.005 - No Normal No Dec 12 gravity 1.030 informati 2016 of Urine on in on in 11:30 PM source source data data Urobili 0.2 NEG E.U./dL No No Dec 12 nogen informa informa 2016 [Presen tion in tion in 11:30 ce] in source source PM Urine data data by Test strip CBC W Auto Differential panel in Blood Observa Value Referen Units Interpr Notes Date tion ce etation Range Basophils 0 - 0.2 K/MM3 Normal No Dec 122016 [#/volume on in 10:50 PM ] in source Blood by data Automated count Basophils 0.1 - 2.0 % Normal No Dec 12 /100 2016 leukocyte on in 10:50 PM s in source Blood by data Automated count Eosinophi 0.0 - 0.4 K/mm3 Normal No Dec 12 ls 2016 [#/volume on in 10:50 PM ] in source Blood by data Automated count Eosinophi 0.1 - % Normal No Dec 12 ls/100 12.0 2016 leukocyte on in 10:50 PM s in source Blood by data Automated count Granulocy 1.3 - 8.0 K/mm3 Normal No Dec 12 mary lou 2016 [#/volume on in 10:50 PM ] in source Blood by data Automated count Granulocy 37.0 - % Normal No Dec 12 mary lou/100 80.0 2016 leukocyte on in 10:50 PM s in source Blood by data Automated count Hematocri 42.0 - % Normal No Dec 12 t [Volume 52.0 2016 on in 10:50 PM Fraction] source of Blood data Hemoglobi 14.1 - g/dL Low No Dec 12 n 18.0 inform2016 [Mass/vol on in 10:50 PM ume] in source Blood data Lymphocyt 0.7 - 4.5 K/mm3 Normal No Dec 12 es inform2016 [#/volume on in 10:50 PM ] in source Unspecifi data ed specimen by Automated count Lymphocyt 10 - 50 % Normal No Dec 12 es inform2016 [#/volume on in 10:50 PM ] in source Unspecifi data ed specimen by Automated count Erythrocy 27 - 31.2 pg Normal No Dec 12 te mean 2016 corpuscul on in 10:50 PM ar source hemoglobi data n [Entitic mass] Erythrocy 31.8 - g/dl Normal No Dec 12 te mean 35.4 2016 corpuscul on in 10:50 PM ar source hemoglobi data n concentra tion [Mass/vol ume] by Automated count Erythrocy 82.2 - fl Normal No Dec 12 te mean 97.8 inform2016 corpuscul on in 10:50 PM ar volume source [Entitic data volume] by Automated count Monocytes 0.1 - 1.0 K/mm3 Normal No Dec 122016 [#/volume on in 10:50 PM ] in source Blood by data Automated count Monocytes 1.7 - 9.3 % Normal No Dec 12 /100 inform2016 leukocyte on in 10:50 PM s in source Blood by data Automated count Platelet 7.4 - fl Normal No Dec 12 mean 10.4 2016 volume on in 10:50 PM [Entitic source volume] data in Blood by Automated count Platelets 142 - 424 K/mm3 Normal No Dec 122016 [#/volume on in 10:50 PM ] in source Blood data Erythrocy 4.6 - 6.2 M/mm3 Low No Dec 12 mary lou 2016 [#/volume on in 10:50 PM ] in source Amniotic data fluid Erythrocy 11.5 - % Normal No Dec 12 te 17.5 2016 distribut on in 10:50 PM ion width source [Entitic data volume] by Automated count Leukocyte 4.8 - K/MM3 Normal No Nov 14 s 10.8 informati 2016 [#/volume on in 10:50 PM ] in source Blood data Drugs identified in Urine by Screen method [...] No No Sep 6 [Mass/vol informati informati 2016 ume] in on in on in Unspecifi [...] No No Sep 6 dine informati informati 2016 [Mass/vol on in on in ume] in [...] - 0.2 K/MM3 Normal No Sep 5 informati 2016 [#/volume on in 11:30 PM ] in source Blood by data Automated count Basophils 0.1 - 2.0 % Normal No Sep 5 /100 2016 leukocyte on in 11:30 PM s in source Blood by data Automated count Eosinophi 0.0 - 0.4 K/mm3 Normal No Sep 5 ls informati 2016 [#/volume on in 11:30 PM ] in source Blood by data Automated count Eosinophi 0.1 - % Normal No Sep 5 ls/100 12.0 inform2016 leukocyte on in 11:30 PM s in source Blood by data Automated count Granulocy 1.3 - 8.0 K/mm3 Normal No Sep 5 mary lou inform2016 [#/volume on in 11:30 PM ] in source Blood by data Automated count Granulocy 37.0 - % Normal No Sep 5 mary lou/100 80.0 inform2016 leukocyte on in 11:30 PM s in source Blood by data Automated count Hematocri 42.0 - % Low No Sep 5 t [Volume 52.0 informati 2016 on in 11:30 PM Fraction] source of Blood data Hemoglobi 14.1 - g/dL Low No Sep 5 n 18.0 inform2016 [Mass/vol on in 11:30 PM ume] in source Blood data Lymphocyt 0.7 - 4.5 K/mm3 Normal No Sep 5 es inform 2017 [#/volume on in 11:30 PM ] in source Unspecifi data ed specimen by Automated count Lymphocyt 10 - 50 % Normal No Sep 5 es inform 2017 [#/volume on in 11:30 PM ] in source Unspecifi data ed specimen by Automated count Erythrocy 27 - 31.2 pg Normal No Sep 5 te mean inform2016 corpuscul on in 11:30 PM ar source hemoglobi data n [Entitic mass] Erythrocy 31.8 - g/dl Normal No Sep 5 te mean 35.4 inform2016 corpuscul on in 11:30 PM ar source hemoglobi data n concentra tion [Mass/vol ume] by Automated count Erythrocy 82.2 - fl Normal No Sep 5 te mean 97.8 inform 2017 corpuscul on in 11:30 PM ar volume source [Entitic data volume] by Automated count Monocytes 0.1 - 1.0 K/mm3 Normal No Sep 5 inform2016 [#/volume on [...] Normal INDICATIO Sep 5 Blood by informati N 2016 Coagulati on in 11:30 PM on [...] SECONDS Normal No Sep 5 partial 34.0 2016 thrombpla on in 11:30 PM stin time [...] No Sep 5 [Presen informa informa informa 2016 ce] in tion [...] Sep 5 mary lou wbc/hpf informa informa 2016 [#/volu ; 5 tion in tion in [...] No No Sep 5 [Mass/vol informati informati 2016 ume] in on in on in 11:20 [...] count Eosinophi 0.1 - % Normal No Shad 1 ls/100 12.0 informati 2016 1:22 leukocyte on in AM s in source Blood by data Automated count Granulocy 1.3 - 8.0 K/mm3 Normal No Shad 1 mary lou informati 2016 1:22 [#/volume on in AM ] in source Blood by data Automated count Granulocy 37.0 - % Normal No Jul 1 mary lou/100 80.0 informati 2017 1:22 leukocyte on in AM s in source Blood by data Automated count Hematocri 42.0 - % Normal No Jul 1 t [Volume 52.0 informati 2017 1:22 on in AM Fraction] source of Blood data Hemoglobi 14.1 - g/dL Normal No Jul 1 n 18.0 informati 2017 1:22 [Mass/vol on in AM ume] in source Blood data Lymphocyt 0.7 - 4.5 K/mm3 Normal No Jul 1 es informati 2017 1:22 [#/volume on in [...] Platelets 142 - 424 K/mm3 Normal No Jul 1 informati 2017 1:22 [#/volume on in AM ] in source Blood data Erythrocy 4.6 - 6.2 M/mm3 Normal No Jul 1 mary lou informati 2017 1:22 [#/volume on in AM ] in source Amniotic data fluid Erythrocy 11.5 - % Normal No Jul 1 te 17.5 informati 2017 1:22 distribut on in AM ion width source [Entitic data volume] by Automated count Leukocyte 4.8 - K/MM3 Normal No Shad 1 s 10.8 informati 2016 1:22 [#/volume [...] etation Range Examina No No No No Apr 21 tion: informa informa informa informa 2014 Cervica tion in tion in tion in [...]
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
[2017-01-08 09:50] LABS: LYMPH # 1.2 K/mm3 (0.7-4.5)
[2017-01-08 09:56] LABS: HEMOGLOBIN 11.3 g/dL (14.1-18.0)
[2017-01-08 10:14] LABS: NEUTROPHILS 88 % (42-76)
--- NOTE | 2017-01-08 10:26 | RADIOLOGY REPORT PS360 ---
CHEST(2 VIEWS-NOT PORTABLE) HISTORY: cough, chest congestion, tobacco abuse, weight loss ORDERING PHYSICIAN: VON ROUSE APRN PATIENT AGE: 51 years COMPARISON: 12/12/2016 FINDINGS: There is cardiomegaly without failure. There are small bilateral pleural effusions. Consolidation is present in the left lower lobe in the retrocardiac region with small left pleural effusion. No acute bony anomalies. IMPRESSION: 1. Left lower lobe pneumonia with small bilateral effusions. A lesion in the left lung base could very well be head by the pneumonia therefore, follow-up is recommended until clear in this patient with weight loss and history of tobacco use. 2. Interval development of mild cardiomegaly
--- NOTE | 2017-01-08 11:26 | Emergency Room Report ---
History of Present Illness Time Seen by 1101 Presenting Problem in Triage Pt arrived:Walked Presenting Problem:PT C/O BODY ACHES,FEVERS, CONGESTION X4 DAYS. Onset of symptoms date/time:/ or onset unknown for:MEDICAL HX UNKNOWN Treatment Prior to Arrival: [employer] Provided by: Sepsis Risk Assessment: Temp: 98 B/P: 102/78 MAP: 86 Pulse: 102 Resp: 16 Recent fever? Clinical Suspician of Infection? Mental Status: Sepsis Risk: Have you (or family members/close friends) recently traveled outside the [place]? N If Yes, where/when: Have you had exposure to infectious disease within the past month? TB? Other? Specify: ALLERGIES Coded Allergies: peanut (Mild, SOB, SWELLING 03/27/16) Home Medications Active Scripts Pantoprazole Sodium (Protonix 40MG TAB) 40 MG PO DAILY #30 TAB Prov: 12/13/16 Epinephrine (Epipen 2-Boby) 1 MG MR ONCE PRN severe allergic reaction #1 KIT Prov: 11/20/15 ASPIRIN (Aspirin) 81 MG PO DAILY #30 Ref 5 Prov: 11/25/15 Reported Medications No Home Medications (NO HOME MEDICATIONS) 1 EACH XX ONCE History Medical History General CAD? Yes Angina: Yes [place]: No Hypertension? Yes Hyperlipidemia? No CHF? No DVT? No PE? No COPD? No Asthma? No Anemia? No GERD? No Gastric ulcers? No GI Bleed? No Hernia? Yes Thyroid Problems? Yes Hypothyroidism? No CVA? No Seizures? Yes Diabetes? No Insulin Dependent: No Insulin Pump: No Home FSBS? No Renal Insuffiency? No End Stage Renal Disease? No UTI? No Stones? No BPH? No GB Disease: No Nephritic Syndrome? No Asplenia? No Hepatitis? No Sickle Cell Disease? No Arthritis? No Migraines? No Cataracts? No Glaucoma? No MRSA? No HIV? No TB? No Anxiety? No Depression? No Cancer? No More? Yes Additional hx: CHRONIC PAIN chronic low back pain chronic migraine headaches Bipolar disease Paranoid Schizophrenia Immunization Hx DT/Tetanus 5-10 Years Ago Pneumonia Refuses Surgical Hx Previous Surgery?Y RECONSTRUCTIVE FACIAL SWATI Appendectomy BACK SURGERY X2 HERNIA SX X 2 03/17 CARDIAC CATH Family History Family Hx Diabetes No CAD Yes Hypertension No Hyperlipidemia Yes Cancer No TB No Social History Smoking Hx Smoker: Current Every Day Smoker Tobacco: Yes Type Cigarettes Packs/day 1 1/2 - 2 Packs Alcohol Alcohol: No Review of Systems All Other Systems Reviewed and Negative Physical Exam Vital Signs Vital Signs Date Time Temp Pulse Resp B/P Pulse O2 O2 Flow FiO2 Ox Delivery Rate 01/08 1159 98 20 112/80 96 01/08 1152 105 20 104/52 97 01/08 1145 112 20 98/68 98 01/08 1142 113 20 103/65 97 01/08 1139 109 20 108/67 98 01/08 1130 119 20 94/79 98 01/08 1123 135 20 107/69 97 01/08 1118 112 20 102/70 98 01/08 1115 142 20 95/61 98 01/08 1110 98.0 142 20 95/61 98 01/08 0905 98.0 102 16 102/78 98 General Appearance normal appearance, WD/WN Respiratory Status Yes: respiratory distress. 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 No Results/Orders Laboratory Tests 01/08/17 1110: Lactic Acid 1.9 01/08/17 0958: Influenza Type A Ag NOT DETECTED, Influenza Type B Ag NOT DETECTED 01/08/17 0940: Sodium 131 L, Potassium 4.4, Chloride 96 L, Carbon Dioxide 29, BUN 16, Creatinine 0.9, Estimated Creat Clear 89, Estimated GFR (MDRD) 90, Glucose 126 H, Calcium 8.8, Total Bilirubin 1.0, AST 12 L, ALT 18, Alkaline Phosphatase 97, Total Protein 7.4, Albumin 2.7 L, Globulin 4.7 H, Albumin/Globulin Ratio 0.6 L, WBC 17.3 H, RBC 3.74 L, Hgb 11.3 L, Hct 35.2 L, MCV 93.9, RDW 13.2, Plt Count 398, MPV 7.8, Gran % 83.7 H, Gran # 14.5 H, Total Counted 100, Lymphocytes % 7.0 L, Monocytes % 7.8, Eosinophils % 1.2, Basophils % 0.3, Neutrophils 88 H, Lymphocytes (Manual) 5 L, Lymphocytes # 1.2, Monocytes ( Manual) 5, Monocytes # 1.4 H, Eosinophils # 0.2, Basophils # 0.1, Atypical Lymphocytes 2, Platelet Estimate NORMAL, PUBS MCHC 31.9, MCH 29.9 Current Medication Orders Sig/Hiral Start time Last Medication Dose Route Stop Time Status Admin Azithromycin 500 MG ONCE ONE 01/08 1145 AC Sodium Chloride 250 ML IV 01/08 1244 Ceftriaxone Sodium 1 GM ONCE ONE 01/08 1145 AC Sodium Chloride 50 ML IV 01/08 1214 Sodium Chloride 1,000 ML .Q1H1M 01/08 1145 AC 01/08 IV 01/08 1245 1137 Sodium Chloride 10 ML PRN PRN 01/08 1145 AC IV 01/09 1136 Sodium Chloride 1,000 ML .STK-MED ONE 01/08 1132 DC IV Diltiazem HCl 20 MG ONCE ONE 01/08 1130 DC 01/08 IV 01/08 1131 1125 Diltiazem HCl 100 MG .Q20H 01/08 1130 AC Sodium Chloride 100 ML IV Sodium Chloride 10 ML PRN PRN 01/08 1130 AC IV 01/09 1123 Diltiazem HCl 0 .STK-MED ONE 01/08 1110 DC IV Orders Procedure Date/time Status DIET-NOTHING BY MOUTH 01/08 D Active DRUG ABUSE SCREEN (10) 01/08 1152 Active BRAIN NATRIURETIC PEPTIDE 01/08 1145 Active ELECTROCARDIOGRAM REQUEST 01/08 1140 Active IV SALINE LOCK 01/08 1124 Active CULTURE, BLOOD 01/08 1124 Active LACTIC ACID 01/08 1124 Complete [place] FLU A,B 01/08 0958 Complete DIFFERENTIAL-WBC 01/08 0940 Complete COMPLETE METABOLIC PANEL 01/08 0929 Complete CBC WITH AUTO DIFF 01/08 0929 Complete Departure Departure Time of Disposition 1145 Disposition Still a Patient Clinical Impression Primary Impression: LLL pneumonia Qualifiers: Pneumonia type: due to unspecified organism Qualified Code: J18.1 - Lobar pneumonia, unspecified organism Secondary Impressions: Cardiomegaly CHF (congestive heart failure) Qualifiers: Congestive heart failure type: unspecified congestive heart failure type Congestive heart failure chronicity: acute Qualified Code: I50.9 - Heart failure, unspecified New onset atrial flutter Condition STABLE Referrals Jean Marie LANGE,Paco Agosto (Family) Patient Instructions Atypical Pneumonia, DI for Atypical Pneumonia Additional Instructions Discussed with Dr. Aj and he prefers the pt be sent to [place] for evaluation as we do not have Cardiology available this weekend. Pt accepted to the ED by Dr. Amezcua Discharge Counseling Counseled pt/family regarding diagnosis, test results, follow up needs ED Critical Care Critical Care No If Critical Care minutes are documented, the time involved in the performance of seperately reportable procedures was not counted toward critical care time documented. I directly delivered medical care to this critically ill and/or injured patient. Timely evaluation and treatment was necessary to address the significant organ system(s) dysfunction present in this patient. at 1212
[2017-01-08 13:14] VITALS: BP 105/88
== END 2017-01-08 13:14 | disposition still patient (30) ==
LOC: UTC 09:00 → ER 09:04
PROVIDERS: Nurse Practitioner Family
DX: J18.1 Lobar pneumonia, unspecified organism (principal); I50.9 Heart failure, unspecified; I48.92 Unspecified atrial flutter; I51.7 Cardiomegaly; I10 Essential (primary) hypertension; F17.210 Nicotine dependence, cigarettes, uncomplicated

== ENCOUNTER 2017-01-11 16:17 | Emergency (ER) | payer MEDICAID ==
[~2017-01-11] VITALS: Ht 175.3 cm; Wt 58.5 kg
--- OUTSIDE RECORDS SUMMARY | 2017-01-11 16:26 | External Medical Summary Rpt | CCD ---
Author Author , NAPOLEON BENDER Address Unknown Phone [email or web address] Purpose Continuity of Care Document - 06-19-2013 through 2016 Problems Code Diagnosis DOS Provider Status F17.210 NICOTINE 12-29-2016 DEPENDENCE, CIGARETTES, UNCOMPLICAT ED R07.89 OTHER CHEST 12-29-2016 PAIN R07.9 CHEST PAIN, 12-29-2016 UNSPECIFIED Z91.010 ALLERGY TO 12-29-2016 PEANUTS I48.92 UNSPECIFIED ATRIAL FLUTTER I50.9 HEART FAILURE, UNSPECIFIED I51.7 CARDIOMEGAL Y J18.1 LOBAR PNEUMONIA, UNSPECIFIED ORGANISM J18.9 PNEUMONIA, UNSPECIFIED ORGANISM N47.7 OTHER INFLAMMATOR Y DISEASES OF PREPUCE R00.0 TACHYCARDIA , UNSPECIFIED R10.9 UNSPECIFIED ABDOMINAL PAIN Results Labs Lab Lab Date Result Refere Interp Status Commen Order Detail nces retati t Range on Bacteria XXX Anaerobe+Aerobe Cult (01-08-2017 23:49) Bacteri NGB2 NO complet a XXX 017 GROWTH ed Anaerob 23:49 DAY 2. e+Aerob L e Cult SPECIME [id number] complet N 017 03 ed CONTAIN 23:49 blood ER volume INFO: estimat ion (proced ure) SCT BVA BLOOD CULTURE VOLUME ACCEPTA BLE L SPECIME FANB complet N 017 AEROBIC ed CONTAIN 23:49 FAN ER AND INFO: ANAEROB IC BLOOD CULTURE BOTTLES L CRP SerPl-mCnc (01-08-2017 23:49) CRP TCON 0-0.9 complet SerPl-m 017 Multipl ed Cnc 23:49 e SCM orders. Tests consoli dated. L mg/dL Bacteria XXX Anaerobe+Aerobe Cult (01-08-2017 20:49) Bacteri NGB3 NO complet a XXX 017 GROWTH ed Anaerob 20:49 DAY 3. e+Aerob L e Cult SPECIME [id number] complet N 017 0 ed CONTAIN 20:49 decreas ER ed INFO: blood volume (findin g) SCT BVL SUBMITT ED BLOOD VOLUME WAS LOW L SPECIME BCSET complet N 017 AEROBIC ed CONTAIN 20:49 AND ER ANAEROB INFO: IC BLOOD CULTURE BOTTLES L Phosphate SerPl-mCnc (01-08-2017 17:34) Phospha 1.9 2.5-4.5 complet te 017 mg/dL ed SerPl-m 17:34 Cnc Magnesium SerPl-mCnc (01-08-2017 17:34) Magnesi 2.0 1.9-2.4 complet um 017 mg/dL ed SerPl-m 17:34 Cnc Ca-I SerPl ISE-sCnc (01-08-2017 17:34) Ca-I 4.4 4.6-5.1 complet SerPl 017 mg/dL ed ISE-sCn 17:34 c Lactate Bld-sCnc (01-08-2017 17:34) Lactate 1.5 complet 017 mmol/L ed Bld-sCn 17:34 c TSH SerPl DL<=0.005 mIU/L-aCnc (01-08-2017 17:34) TSH 1.13 0.4-4.2 complet SerPl 017 uIU/mL ed DL<=0.0 17:34 05 mIU/L-a Cnc Blood lactic acid measurement (moles/vol (01-08-2017 11:10) Blood = 1.9 0.4-2.0 complet lactic 017 mmol/L ed acid 11:10 measure ment (moles/ vol Rapid influenza A and B antigen detectio (01-08-2017 09:58) Influen NOT NOT complet za A ag 017 DETECTE DETECTD ed QL 09:58 D NOT DETECTE D L INFLUEN NOT NOT complet ZA B 017 DETECTE DETECTD ed ANTIGEN 09:58 D Influenza virus A+B Ag [Presence] in Unspecified specimen (01-08-2017 09:58) Influen NOT NOT complet za 017 DETECTE DETECTD ed virus A 09:58 D Ag [Presen ce] in Unspeci fied specime n INFLUEN NOT NOT complet ZA B 017 DETECTE DETECTD ed ANTIGEN 09:58 D CBC w auto diff (01-08-2017 09:40) Automat = 0.1 0-0.2 complet ed 017 K/MM3 ed blood 09:40 basophi l count (count/ vo Baso % = 0.3 % 0.1-2.0 complet 017 ed 09:40 Automat = 0.2 0.0-0.4 complet ed 017 K/mm3 ed blood 09:40 eosinop hil count Automat = 1.2 % 0.1-12. complet ed 017 0 ed blood 09:40 eosinop hils/10 0 leukocy t Blood = 14.5 1.3-8.0 complet granulo 017 K/mm3 ed cytes 09:40 automat ed count (numb Granulo = 83.7 37.0-80 complet cyte 017 % .0 ed percent 09:40 age Blood = 35.2 42.0-52 complet hematoc 017 % .0 ed rit 09:40 (volume fractio n) Blood = 11.3 14.1-18 complet hemoglo 017 g/dL .0 ed bin 09:40 measure ment (mass/v olum Absolut = 1.2 0.7-4.5 complet e 017 K/mm3 ed lymphoc 09:40 yte count Lymphoc = 7.0 % 10-50 complet yte 017 ed count, 09:40 blood, automat ed Mean = 29.9 27-31.2 complet corpusc 017 pg ed ular 09:40 hemoglo bin (MCH) determ Automat = 31.9 31.8-35 complet ed 017 g/dl .4 ed erythro 09:40 cyte mean corpusc ular h Automat = 93.9 82.2-97 complet ed 017 fl .8 ed erythro 09:40 cyte mean corpusc ular v Absolut = 1.4 0.1-1.0 complet e 017 K/mm3 ed monocyt 09:40 e count Twiggs % 11-10-2 = 7.8 % 1.7-9.3 complet 017 ed 09:40 Automat 11-2 = 7.8 7.4-10. complet ed 017 fl 4 ed blood 09:40 platele t mean volume vick Blood = 398 142-424 complet platele 017 K/mm3 ed t count 09:40 Red 01-08- = 3.74 4.6-6.2 complet blood 017 M/mm3 ed cell 09:40 count Automat = 13.2 11.5-17 complet ed 017 % .5 ed erythro 09:40 cyte distrib ution width Blood = 17.3 4.8-10. complet leukocy 017 K/MM3 8 ed mary lou 09:40 count (number /volume ) Brain natriuretic peptide (01-08-2017 09:40) Brain = 338 0-100 complet natriur 017 pg/mL ed etic 09:40 peptide Differential panel, method unspecified - (01-08-2017 09:40) Blood = 100 complet total 017 #CELLS ed cell 09:40 count Neutrop = 88 % 42-76 complet hil 017 ed count 09:40 Platele NORMAL complet t 017 NORMAL ed estimat 09:40 L e Monocyt -- = 5 % 2-9 complet e % 017 ed 09:40 LYMPH --2 5 % 10-50 complet 017 ed 09:40 Percent -10-2 = 2 % 0-5 complet of 017 ed variant 09:40 lymphoc ytes in blood Comprehensive metabolic panel (01-08-2017 09:40) Protein -- = 7.4 6.4-8.2 complet total 017 gm/dL ed ser/rené 09:40 s ALT = 18 12-78 complet (SGPT) 017 U/L ed ser/rené 09:40 s Serum = 12 15-37 complet or 017 U/L ed plasma 09:40 asparta te aminotr ansfera Serum = 131 136-145 complet sodium 017 mmoL/L ed measure 09:40 ment Serum = 4.4 3.5-5.1 complet potassi 017 mmoL/L ed um 09:40 measure ment Serum = 126 74-106 complet or 017 mg/dL ed plasma 09:40 glucose measure ment (mas Serum = 4.7 1.3-3.2 complet globuli 017 gm/dL ed n 09:40 measure ment (mass/v olume) Estimat = 90 >60 complet ed 017 ML/MIN ed glomeru 09:40 lar filtrat ion rate (GF Estimat = 89 50-200 complet ion of 017 ML/MIN ed creatin 09:40 ine renal clearan ce Serum = 0.9 0.70-1. complet or 017 mg/dL 30 ed plasma 09:40 creatin ine measure ment ( Carbon = 29 21.0-32 complet dioxide 017 mmoL/L .0 ed 09:40 measure ment Serum = 96 98-107 complet or 017 mmoL/L ed plasma 09:40 chlorid e measure ment (mo Serum = 8.8 8.5-10. complet or 017 mg/dL 1 ed plasma 09:40 calcium measure ment (mas Serum = 16 7-18 complet or 017 mg/dL ed plasma 09:40 urea nitroge n measure men Serum = 1.0 0.2-1.0 complet or 017 mg/dL ed plasma 09:40 total bilirub in measure m Serum = 97 46-116 complet or 017 U/L ed plasma 09:40 alkalin e phospha tase vick Serum = 2.7 3.4-5.0 complet or 017 gm/dL ed plasma 09:40 albumin measure ment (mas Serum = 0.6 1.1-1.8 complet or 017 ed plasma 09:40 albumin /globul in mass ra Differential panel, method unspecified - (01-08-2017 09:40) LYMPH 5 % 10% - Low complet 017 50% ed 09:40 Platele NORMAL complet ts 017 ed [Presen 09:40 ce] in Blood by Light microsc opy Glucose capillary blood glucometer (12-13-2016 00:30) Glucose 10-15-2 = 109 70-110 complet 017 mg/dl ed capilla 00:[address] Urinalysis with microscopy (12-12-2016 23:30) Urine 10-14-2 CLEAR CLEAR complet appeara 017 CLEAR L ed nce 23:30 determi nation Amorpho 12-12-2 TRACE NONE complet us 017 TRACE L ed sedimen 23:30 t detecti on in urine se Urine 12-12-2 NEGATIV NEG complet total 017 E ed bilirub 23:30 NEGATIV in E L detecti on by test Urine 12-12-2 NEGATIV NEG complet blood 017 E ed detecti 23:30 NEGATIV on E L Urine --2 YELLOW YELLOW complet color 017 YELLOW ed 23:30 L Glucose --2 = NEG complet ur 017 NEGATIV ed test 23:30 E strip Urine 12-12-2 1+ 1+ L NEG complet ketones 017 mg/dL ed 23:30 detecti on by automat ed mary lou Mucus 12-12-2 NEGATIV NEG complet detecti 017 E ed on in 23:30 NEGATIV urine E L sedimen t by lig Mucus --2 4+ 4+ L NONE complet detecti 017 ed on in 23:30 urine sedimen t by lig Urine 12-12-2 NEGATIV NEG complet nitrite 017 E ed 23:30 NEGATIV detecti E L on by test strip Urine 12-12-2 = 6.5 5.0-8.5 complet pH 017 ed 23:30 Urine 14-2 = TRACE NEG complet protein 017 mg/dL ed 23:30 measure ment by automat ed t Urine -14-2 = 1.015 1.005-1 complet specifi 017 .030 ed c 23:30 gravity measure ment Urine 10-14-2 0.2 0.2 NEG complet urobili 017 L ed nogen 23:30 E.U./dL detecti on by test str Urine 10--2 3 - 5 O complet leukocy 017 wbc/hpf ed mary lou 23:30 count (number /volume ) Urine 9-analyte drugs of abuse screening (12-12-2016 23:30) Comment: Positive urine drug screen samples are stored for 7 days. Comment: Contact the Lab if confirmation of positives is needed. Urine 10-14-2 NEGATIV <1000 complet ampheta 017 E ed mine 23:30 NEGATIV screeni E L ng test ng/mL Urine = <200 complet barbitu 017 NEGATIV ed rates 23:30 E ng/mL measure ment by screen Serum = 200 complet or 017 NEGATIV ng/mL ed plasma 23:30 E ng/mL benzodi azepine s measure m Cocaine = <300 complet 017 NEGATIV ed measure 23:30 E ng/g ment (mass/v olume) Methado = <300 complet ne 017 NEGATIV ed measure 23:30 E ng/mL ment (mass/v olume) Opiates = <300 complet 017 POSITIV ed measure 23:30 E ng/mL ment (mass/v olume) Comment: This is an UNCONFIRMED result. This result is for medical Comment: purposes and/or treatment only. Phencyc = <25 complet lidine 017 NEGATIV ed measure 23:30 E ng/mL ment (mass/v olume) 11-hydr POSITIV <50 complet oxy 017 E ed delta-9 23:30 POSITIV E L tetrahy ng/mL drocann abinol Comment: This is an UNCONFIRMED result. This result is for medical Comment: purposes and/or treatment only. Drugs identified in Urine by Screen method (12-12-2016 23:30) Ampheta NEGATIV <1000 complet mine 017 E ed [Presen 23:30 ce] in Urine by Screen method 11-Hydr POSITIV <50 Abnorma complet oxy 017 E l ed delta-9 23:30 tetrahy drocann abinol [Presen ce] in Unspeci fied specime n Urinalysis dipstick W Reflex Microscopic panel in Urine (12-12-2016 23:30) Amorpho TRACE NONE complet us 017 ed sedimen 23:30 t [Presen ce] in Urine sedimen t by Light microsc opy Mucus 4+ NONE complet [Presen 017 ed ce] in 23:30 Urine sedimen t by Light microsc opy Leukocy 3-5 O complet mary lou 017 wbc/hpf ed [#/volu 23:30 me] in Urine Urinalysis dipstick W Reflex Microscopic panel in Urine (12-12-2016 23:30) Appeara CLEAR CLEAR complet nce of 017 ed Urine 23:30 Bilirub NEGATIV NEG complet in 017 E ed [Presen 23:30 ce] in Urine by Test strip Erythro NEGATIV NEG complet cytes 017 E ed [Presen 23:30 ce] in Urine Color YELLOW YELLOW complet of 017 ed Urine 23:30 Ketones 1+ NEG Abnorma complet 017 l ed [...] 23:30 ce] in Urine by Test strip CBC w auto diff (12-12-2016 22:50) Automat = 0.1 0-0.2 complet ed 017 K/MM3 ed blood 22:50 basophi l count (count/ vo Baso % = 0.5 % 0.1-2.0 complet 017 ed 22:50 Automat = 0.1 0.0-0.4 complet ed 017 K/mm3 ed blood 22:50 eosinop hil count Automat = 1.0 % 0.1-12. complet ed 017 0 ed blood 22:50 eosinop hils/10 0 leukocy t Blood = 7.6 1.3-8.0 complet granulo 017 K/mm3 ed cytes 22:50 automat ed count (numb Granulo = 72.9 37.0-80 complet cyte 017 % .0 ed percent 22:50 age Blood = 42.7 42.0-52 complet hematoc 017 % .0 ed rit 22:50 (volume fractio n) Blood = 14.0 14.1-18 complet hemoglo 017 g/dL .0 ed bin 22:50 measure ment (mass/v olum Absolut = 1.9 0.7-4.5 complet e 017 K/mm3 ed lymphoc 22:50 yte count Lymphoc = 18.0 10-50 complet yte 017 % ed count, 22:50 blood, automat ed Mean = 30.8 27-31.2 complet corpusc 017 pg ed ular 22:50 hemoglo bin (MCH) determ Automat = 32.7 31.8-35 complet ed 017 g/dl .4 ed erythro 22:50 cyte mean corpusc ular h Automat = 94.1 82.2-97 complet ed 017 fl .8 ed erythro 22:50 cyte mean corpusc ular v Absolut = 0.8 0.1-1.0 complet e 017 K/mm3 ed monocyt 22:50 e count Twiggs % = 7.5 % 1.7-9.3 complet 017 ed 22:50 Automat = 8.6 7.4-10. complet ed 017 fl 4 ed blood 22:50 platele t mean volume vick Blood = 196 142-424 complet platele 017 K/mm3 ed t count 22:50 Red = 4.54 4.6-6.2 complet blood 017 M/mm3 ed cell 22:50 count Automat = 13.9 11.5-17 complet ed 017 % .5 ed erythro 22:50 cyte distrib ution width Blood = 10.5 4.8-10. complet leukocy 017 K/MM3 8 ed mary lou 22:50 count (number /volume ) Cardiac enzymes (12-12-2016 22:50) Serum = 69 39-308 complet or 017 U/L ed plasma 22:50 creatin e kinase measure m Serum = 0.7 0-4.0 complet or 017 U/L ed plasma 22:50 creatin e kinase MB (CK-M Serum = 0.5 0.0-3.6 complet or 017 ng/mL ed plasma 22:50 creatin e kinase MB measu Serum < 0.02 0.00-0. complet or 017 ng/mL 06 ed plasma 22:50 troponi n i.cardi ac measu Comprehensive metabolic panel (12-12-2016 22:50) Serum = 1.0 1.1-1.8 complet or 017 ed plasma 22:50 albumin /globul in mass ra Serum = 3.9 3.4-5.0 complet or 017 gm/dL ed plasma 22:50 albumin measure ment (mas Serum = 79 46-116 complet or 017 U/L ed plasma 22:50 alkalin e phospha tase vick Serum = 0.5 0.2-1.0 complet or 017 mg/dL ed plasma 22:50 total bilirub in measure m Serum = 14 7-18 complet or 017 mg/dL ed plasma 22:50 urea nitroge n measure men Serum = 8.9 8.5-10. complet or 017 mg/dL 1 ed plasma 22:50 calcium measure ment (mas Serum = 105 98-107 complet or 017 mmoL/L ed plasma 22:50 chlorid e measure ment (mo Carbon = 32 21.0-32 complet dioxide 017 mmoL/L .0 ed 22:50 measure ment Serum = 1.1 0.70-1. complet or 017 mg/dL 30 ed plasma 22:50 creatin ine measure ment ( Estimat = 91 50-200 complet ion of 017 ML/MIN ed creatin 22:50 ine renal clearan ce Estimat = 71 >60 complet ed 017 ML/MIN ed glomeru 22:50 lar filtrat ion rate (GF Comment: REFERENCE RANGE: >60 ML/MIN/1.73 SQUARE METERS Comment: If this patient is -[place]cu[place], then multiply the Comment: result by 1.210. Serum = 3.9 1.3-3.2 complet globuli 017 gm/dL ed n 22:50 measure ment (mass/v olume) Serum = 48 74-106 complet or 017 mg/dL ed plasma 22:50 glucose measure ment (mas Comment: CALLED TO CC YECENIA IN ER 12/12/16 2320 JS Serum = 4.0 3.5-5.1 complet potassi 017 mmoL/L ed um 22:50 measure ment Serum = 140 136-145 complet sodium 017 mmoL/L ed measure 22:50 ment Serum = 16 15-37 complet or 017 U/L ed plasma 22:50 asparta te aminotr ansfera ALT = 15 12-78 complet (SGPT) 017 U/L ed ser/rené 22:50 s Protein = 7.8 6.4-8.2 complet total 017 gm/dL ed ser/rené 22:50 s Drugs identified in Urine by Screen method [...]
--- OUTSIDE RECORDS SUMMARY | 2017-01-11 16:26 | External Medical Summary Rpt | CCD ---
Author Author , NAPOLEON Organization NAPOLEON Address Unknown Phone [email or web address] Immunization Name Date Rout CVX Reac Dose [...]
--- OUTSIDE RECORDS SUMMARY | 2017-01-11 16:26 | External Medical Summary Rpt | CCD ---
Author Author , NAPOLEON Organization NAPOLEON Address Unknown Phone [email or web address] Immunization Name Date Rout CVX Reac Dose [...]
--- OUTSIDE RECORDS SUMMARY | 2017-01-11 16:26 | External Medical Summary Rpt | CCD ---
Author Author , NAPOLEON BENDER Address Unknown Phone [email or web address] Purpose Continuity of Care Document - 06-19-2013 [...] DAY 2. e+Aerob L e Cult SPECIME [id number] complet N 017 03 ed CONTAIN 23:49 [...] DAY 3. e+Aerob L e Cult SPECIME [id number] complet N 017 0 ed CONTAIN 20:49 [...] 017 K/mm3 ed monocyt 09:40 e count [place] % 11-10-2 = 7.8 % 1.7-9.3 complet [...] 017 K/mm3 ed monocyt 22:50 e count [place] % = 7.5 % 1.7-9.3 complet 017 [...] SQUARE METERS Comment: If this patient is -[place], then multiply the Comment: result by 1.210. [...]
--- OUTSIDE RECORDS SUMMARY | 2017-01-11 16:27 | External Medical Summary Rpt ---
Author Author [facility] Benjamin, WENNEREIDA [employer] Organization [employer] Address Unknown Phone Unavailable Results Lactate [Moles/volume] in Blood Observa Value Referen Units Interpr Notes Date tion ce etation Range Lactate 0.4 - 2.0 mmol/L Normal No Dec 10 [Moles/vo informati 2017 lume] in on in 11:10 AM Blood source data Influenza virus A+B Ag [Presence] in Unspecified specimen Observa Value Referen Units Interpr Notes Date tion ce etation Range Influen NOT NOT No No No Dec 10 za DETECTE DETECTD informa informa informa 2017 virus A D tion in tion in tion in 9:58 AM Ag source source source [Presen data data data ce] in Unspeci fied specime n INFLUEN NOT NOT No No LOT # Dec 10 ZA B DETECTE DETECTD informa informa @[id number] ANTIGEN D tion in tion in 3 EXP 9:58 AM source source DATE data data @2019-0 3-31 Natriutietic peptide B [Mass/volume] in Serum or Plasma Observa Value Referen Units Interpr Notes Date tion ce etation Range Natriutie 0 - 100 pg/mL High No Jan 08 tic informati 2016 9:40 peptide B on in AM source [Mass/vol data ume] in Serum or Plasma CBC W Auto Differential panel in Blood Observa Value Referen Units Interpr Notes Date tion ce etation Range Basophils 0 - 0.2 K/MM3 Normal No Dec 10 informati 2016 9:40 [#/volume on in AM ] in source Blood by data Automated count Basophils 0.1 - 2.0 % Normal No Jan 08 informati 2017 9:40 leukocyte on in AM s in source Blood by data Automated count Eosinophi 0.0 - 0.4 K/mm3 Normal No Jan 08 ls informati 2016 9:40 [#/volume on in AM ] in source Blood by data Automated count Eosinophi 0.1 - % Normal No Jan 08 ls/100 12.0 informati 2016 9:40 leukocyte on in AM s in source Blood by data Automated count Granulocy 1.3 - 8.0 K/mm3 High No Jan 08 mary lou informati 2016 9:40 [#/volume on in AM ] in source Blood by data Automated count Granulocy 37.0 - % High Jan 08 mary lou/100 80.0 informati 2017 9:40 leukocyte on in AM s in source Blood by data Automated count Hematocri 42.0 - % Low No Jan 08 t [Volume 52.0 informati 2016 9:40 on in AM Fraction] source of Blood data Hemoglobi 14.1 - g/dL Low No Jan 08 n 18.0 informati 2016 9:40 [Mass/vol on in AM ume] in source Blood data Lymphocyt 0.7 - 4.5 K/mm3 Normal No Jan 08 es informati 2016 9:40 [#/volume on in AM ] in source Unspecifi data ed specimen by Automated count Lymphocyt 10 - 50 % Low No Jan 08 informati 2016 9:40 [#/volume on in AM ] in source Unspecifi data ed specimen by Automated count Erythrocy 27 - 31.2 pg Normal No Jan 08 te mean informati 2016 9:40 corpuscul on in AM ar source hemoglobi data n [Entitic mass] Erythrocy 31.8 - g/dl Normal Jan 08 te mean 35.4 informati 2016 9:40 corpuscul on in AM ar source hemoglobi data n concentra tion [Mass/vol ume] by Automated count Erythrocy 82.2 - fl Normal No Jan 08 te mean 97.8 informati 2016 9:40 corpuscul on in AM ar volume source [Entitic data volume] by Automated count Monocytes 0.1 - 1.0 K/mm3 High No Jan 08 informati 2016 9:40 [#/volume on in AM ] in source Blood by data Automated count Monocytes 1.7 - 9.3 % Normal No Jan 08 informati 2016 9:40 leukocyte on in AM s in source Blood by data Automated count Platelet 7.4 - fl Normal No Jan 08 mean 10.4 informati 2016 9:40 volume on in AM [Entitic source volume] data in Blood by Automated count Platelets 142 - 424 K/mm3 No Jan 08 informati informati 2016 9:40 [#/volume on in on in AM ] in source source Blood data data Erythrocy 4.6 - 6.2 M/mm3 Low No Dec 10 mary lou informati 2016 9:40 [#/volume on in AM ] in source Amniotic data fluid Erythrocy 11.5 - % Normal No Dec 10 te 17.5 informati 2016 9:40 distribut on in AM ion width source [Entitic data volume] by Automated count Leukocyte 4.8 - K/MM3 High No Dec 10 s 10.8 informati 2016 9:40 [#/volume on in AM ] in source Blood data Differential panel, method unspecified - Observa Value Referen Units Interpr Notes Date tion ce etation Range Lymphocyt 0 - 5 % Normal No Jan 08 es ati 2016 9:40 Variant/1 on in AM 00 source leukocyte data s in Blood by Manual count LYMPH 5 10 - 50 % Low No Jan 082016 tion in 9:40 AM source data Monocytes 2 - 9 % Normal No Dec 10 /100 ati 2016 9:40 leukocyte on in AM s in source Blood by data Automated count Platele NORMAL No No No No Jan 08 ts informa informa informa informa 2016 [Presen tion in tion in tion in tion in 9:40 AM ce] in source source source source Blood data data data data by Light microsc opy Neutrophi 42 - 76 % High No Jan 08 ls 2016 9:40 [#/volume on in AM ] in source Blood by data Automated count Cells No #CELLS No No Dec 10 Counted informati informati 2016 9:40 Total [#] on in on in on in AM in Blood source source source data data data Comprehensive metabolic 2000 panel in Serum or Plasma Observa Value Referen Units Interpr Notes Date tion ce etation Range Albumin/G 1.1 - 1.8 No Low No Dec 10 lobulin informati informati 2016 9:40 [Mass on in on in AM ratio] in source source Serum or data data Plasma Albumin 3.4 - 5.0 gm/dL Low No Dec 10 [Mass/vol ati 2016 9:40 ume] in on in AM Serum or source Plasma data Alkaline 46 - 116 U/L Normal No Dec 10 phosphata ati 2016 9:40 se on in AM [Enzymati source c data activity/ volume] in Serum or Plasma Bilirubin 0.2 - 1.0 mg/dL Normal No Jan 08 .total informati 2016 9:40 [Mass/vol on in AM ume] in source Serum or data Plasma Urea 7 - 18 mg/dL Normal No Jan 08 nitrogen informati 2016 9:40 [Mass/vol on in AM ume] in source Serum or data Plasma Calcium 8.5 - mg/dL Normal No Jan 08 [Mass/vol 10.1 informati 2017 9:40 ume] in on in AM Serum or source Plasma data Chloride 98 - 107 mmoL/L Low No Jan 08 [Moles/vo informati 2016 9:40 lume] in on in AM Serum or source Plasma data Carbon 21.0 - mmoL/L Normal No Jan 08 dioxide, 32.0 informati 2017 9:40 total on in AM [Moles/vo source lume] in data Serum or Plasma Creatinin 0.70 - mg/dL Normal No Jan 08 e 1.30 informati 2016 9:40 [Mass/vol on in AM ume] in source Serum or data Plasma Creatinin 50 - 200 ML/MIN Normal No Jan 08 e renal informati 2016 9:40 clearance on in AM source predicted data by Cockcroft -Gault formula Estimated >60 ML/MIN No REFERENCE Jan 08 informati RANGE: 2017 9:40 glomerula on in >60 AM r source ML/MIN/1. filtratio data 73 SQUARE n rate METERSIf (GF this patient is -A merican, then multiply theresult by 1.210. Globulin 1.3 - 3.2 gm/dL High No Jan 08 [Mass/vol informati 2016 9:40 ume] in on in AM Serum source data Glucose 74 - 106 mg/dL High No Jan 08 [Mass/vol informati 2016 9:40 ume] in on in AM Serum or source Plasma data Potassium 3.5 - 5.1 mmoL/L Normal No Jan 08 informati 2016 9:40 [Moles/vo on in AM lume] in source Serum or data Plasma Sodium 136 - 145 mmoL/L Low No Jan 08 [Moles/vo informati 2017 9:40 lume] in on in AM Serum or source Plasma data Aspartate 15 - 37 U/L Low No Jan 08 informati 2017 9:40 aminotran on in AM sferase source [Enzymati data c activity/ volume] in Serum or Plasma Alanine 12 - 78 U/L Normal No Jan 08 aminotran informati 2016 9:40 sferase on in AM [Enzymati source c data activity/ volume] in Serum or Plasma Protein 6.4 - 8.2 gm/dL Normal No Jan 08 [Mass/vol informati 2016 9:40 ume] in on in AM Serum or source Plasma data Glucose [Mass/volume] in Capillary blood by Glucometer Observa Value Referen Units Interpr Notes Date tion ce etation Range Glucose 70 - 110 mg/dl Normal No Dec 13 [Mass/vol informati 2016 ume] in on in [...] No Dec 12 mine E informa informa 2016 [Presen tion in tion in 11:30 ce] in source source PM Urine data data by Screen method Barbitura <200 ng/mL No No Dec 12 mary lou informati informati 2016 [Mass/vol on in on in 11:30 PM ume] in source source Urine by data data Screen method Benzodiaz 200 ng/mL ng/mL No No Dec 12 epines informati informati 2016 [Mass/vol on in on in 11:30 PM ume] in source source Serum or data data Plasma by Screen method Cocaine <300 ng/g No No Dec 12 [Mass/vol informati informati 2016 ume] in on in on in 11:30 PM Unspecifi source source ed data data specimen Methadone <300 ng/mL No No Dec 12 informati informati 2016 [Mass/vol on in on in 11:30 PM ume] in source source Unspecifi data data ed specimen Opiates <300 ng/mL High This is Dec 12 [Mass/vol an 2016 ume] in UNCONFIRM 11:30 PM Unspecifi ED ed result. specimen This result is for medicalpu rposes and/or treatment only. Phencycli <25 ng/mL No No Dec 12 dine informati informati 2016 [Mass/vol on in on in 11:30 PM [...] Normal No Dec 12 Urine informati informati 2017 on in on in 11:30 PM source [...] No Dec 12 of informa informa informa 2017 Urine tion [...] NEG mg/dL High No Dec 12 [Mass/vol 2016 ume] in on in 11:30 PM Urine by source Automated data test strip Specific 1.005 - No Normal No Dec 12 gravity 1.030 informati inform2016 of Urine on in on in 11:30 [...] 0.1 - 2.0 % Normal No Dec 122016 leukocyte on in 10:50 PM s in [...] Normal No Dec 12 mary lou/100 80.0 inform2016 leukocyte on in 10:50 PM s in source Blood by data Automated count Hematocri 42.0 - % Normal No Dec 12 t [Volume 52.0 2016 on in 10:50 PM Fraction] source of Blood data Hemoglobi 14.1 - g/dL Low No Dec 12 n 18.0 2016 [Mass/vol on in 10:50 PM ume] in source Blood data Lymphocyt 0.7 - 4.5 K/mm3 Normal No Dec 12 es 2016 [#/volume on in 10:50 PM ] in source Unspecifi data ed specimen by Automated count Lymphocyt 10 - 50 % Normal No Dec 12 es 2016 [#/volume on in 10:50 PM ] [...] Normal No Dec 12 te mean 97.8 2016 corpuscul on in 10:50 PM ar volume source [Entitic data volume] by Automated count Monocytes 0.1 - 1.0 K/mm3 Normal No Dec 122016 [#/volume on in 10:50 PM ] in source Blood by data Automated count Monocytes 1.7 - 9.3 % Normal No Dec 12 /100 2016 [...] count Leukocyte 4.8 - K/MM3 Normal No Oct 14 s 10.8 informati 2016 [#/volume on [...] 2.0 % Normal No Sep 5 /100 informati 2017 leukocyte on in 11:30 PM s in source Blood by data Automated count Eosinophi 0.0 - 0.4 K/mm3 Normal No Sep 5 ls inform2016 [#/volume on in 11:30 PM ] [...] Low No Sep 5 t [Volume 52.0 inform2016 on in 11:30 PM Fraction] source of [...] 9.3 % Normal No Sep 5 /100 inform2016 leukocyte on in 11:30 PM s [...] INDICATIO Sep 5 Blood by informati N 2017 Coagulati on in 11:30 PM on assay source INR data RANGETHER APY FOR DVT, PE, ATRIAL FIB; 2.0 - 3.0PROPHY LAXIS FOR VTETHERAP Y FOR MECHANICA L HEART 2.5 - 3.5VALVE; PREVENTIO N OF SYSTEMICE MBOLISM SECONDARY TO AMI Prothromb 9.4 - SECONDS Normal No Sep 5 in time 11.8 inform2016 (PT) in on in 11:30 PM Platelet [...] No Sep 5 a informa informa informa 2016 [Presen tion in [...] Sep 5 cytes E informa informa informa 2016 [Presen [...] Basophils 0.1 - 2.0 % Normal No Jul 30 informati 2016 1:22 leukocyte on in AM s in source Blood by data Automated count Eosinophi 0.0 - 0.4 K/mm3 Normal No Shad 1 ls informati 2016 1:22 [#/volume on in AM ] in source Blood by data Automated count Eosinophi 0.1 - % Normal No Jul 30 ls/100 12.0 informati 2016 1:22 leukocyte on in AM s in source Blood by data Automated count Granulocy 1.3 - 8.0 K/mm3 Normal No Shad 1 mary lou informati 2016 1:22 [#/volume on in AM ] in source Blood by data Automated count Granulocy 37.0 - % Normal No Jul 30 mary lou/100 80.0 informati 2017 1:22 leukocyte on in AM s in source Blood by data Automated count Hematocri 42.0 - % Normal No Jul 1 t [Volume 52.0 informati 2016 1:22 on in AM Fraction] source of [...] 10 - 50 % Normal No Jul 1 es informati 2017 1:22 [#/volume on in AM ] in source Unspecifi data ed specimen by Automated count Erythrocy 27 - 31.2 pg Normal No Jul 1 te mean informati 2016 1:22 corpuscul on in AM ar source hemoglobi data n [Entitic mass] Erythrocy 31.8 - g/dl Normal No Jul 30 te mean 35.4 informati 2016 1:22 corpuscul on in AM ar source hemoglobi data n concentra tion [Mass/vol ume] by Automated count Erythrocy 82.2 - fl Normal No Jul 1 te mean 97.8 informati 2017 1:22 corpuscul [...] Platelet 7.4 - fl Low No Jul 1 mean 10.4 informati 2017 1:22 volume on in AM [Entitic source volume] data in Blood by Automated count Platelets 142 - 424 K/mm3 Normal No Shad 1 informati 2017 1:22 [#/volume on in AM ] in source Blood data Erythrocy 4.6 - 6.2 M/mm3 Normal No Shad 1 mary lou informati 2017 1:22 [#/volume on in AM ] in source Amniotic data fluid Erythrocy 11.5 - % Normal No Jul 1 te 17.5 informati 2017 1:22 distribut on in AM ion width source [Entitic data volume] by Automated count Leukocyte 4.8 - K/MM3 Normal No Shad 1 s 10.8 informati 2017 1:22 [#/volume on in AM [...] Apr 21 tion: informa informa informa informa 2013 Cervica [...]
--- OUTSIDE RECORDS SUMMARY | 2017-01-11 16:27 | External Medical Summary Rpt ---
[...] 10 ZA B DETECTE DETECTD informa informa @[id number] ANTIGEN D tion in tion in 3 [...]
--- NOTE | 2017-01-11 17:16 | Urgent Treatment Center Report ---
History of Present Issue Date/Time Seen by Provider 01/11/17 6095 Visit Reason Pt arrived:Walked Presenting Problem:RX REFILL Location if Accident: Onset of symptoms date/time:/ or onset unknown for:MEDICAL HX UNKNOWN Have you (or family members/close friends) recently traveled outside the [place]? N If Yes, where/when: Have you had exposure to infectious disease within the past month? TB? Other? Specify: Patient state that he was at [facility] as a patient and become aggitated with his treatment and signed himself out State that he came here to see if we could write him the medication he was on while he was in the Hospital State that he should be on some antibiotics and a heart medication. State that he had the nurse write down the medication he was taking at and they where Cardizem, Digoxin, Azithromycin, and Zosyn ALLERGIES Coded Allergies: peanut (Mild, SOB, SWELLING 03/27/16) Home Medications Active Scripts Pantoprazole Sodium (Protonix 40MG TAB) 40 MG PO DAILY #30 TAB Prov: 12/13/16 Epinephrine (Epipen 2-Boby) 1 MG MR ONCE PRN severe allergic reaction #1 KIT Prov: 11/20/15 ASPIRIN (Aspirin) 81 MG PO DAILY #30 Ref 5 Prov: 11/25/15 Reported Medications No Home Medications (NO HOME MEDICATIONS) 1 EACH XX ONCE History Medical History General CAD? Yes Angina: Yes [place]: No Hypertension? Yes Hyperlipidemia? No CHF? No DVT? No PE? No COPD? No Asthma? No Anemia? No GERD? No Gastric ulcers? No GI Bleed? No Hernia? Yes Thyroid Problems? Yes Hypothyroidism? No CVA? No Seizures? Yes Diabetes? No Insulin Dependent: No Insulin Pump: No Home FSBS? No Renal Insuffiency? No UTI? No Stones? No BPH? No GB Disease: No Nephritic Syndrome? No Asplenia? No Hepatitis? No Sickle Cell Disease? No Arthritis? No Migraines? No Cataracts? No Glaucoma? No MRSA? No HIV? No TB? No Anxiety? No Depression? No Cancer? No More? Yes Additional hx: CHRONIC PAIN chronic low back pain chronic migraine headaches Bipolar disease Paranoid Schizophrenia Immunization HX DT/Tetanus 5-10 Years Ago Pneumonia Refuses Surgical Hx Previous Surgery?Y RECONSTRUCTIVE FACIAL SWATI Appendectomy BACK SURGERY X2 HERNIA SX X 2 03/17 CARDIAC CATH Family History Family HX Diabetes No CAD Yes Hypertension No Hyperlipidemia Yes Cancer No TB No Social History Smoking Hx Smoker: Never Smoker Tobacco: No Packs/day 1 1/2 - 2 Packs Alcohol Alcohol: No Review of Systems All Other Systems Reviewed and Negative Physical Exam Vital Signs Vital Signs Date Time Temp Pulse Resp B/P Pulse O2 O2 Flow FiO2 Ox Delivery Rate 01/11 1640 98.4 106 20 128/53 98 General Appearance normal appearance, WD/WN, no apparent distress Respiratory Status Yes: trachea midline, chest symmetrical, non tender chest. No: respiratory distress. Cardiovascular regular rate/rhythm Neurologic alert, normal exam, oriented x 3 Medical Decision Making LABS/Meds/Orders Pt receiving controlled substance in ED? No Progress [facility] Progress Notes Comment Paitient gets medication filled at [facility] Called pharmacy and they state that Dr Smith called in medication for patient earlier including Azithromycin and Digoxin. Patient informed that medication was at pharmacy and he wanted someone to write Cardizem, advised patient that he needed to checke with his [employer] that maybe where he called in all the other medication he may have not wanted him to continue on the medication and he needed to consult with him about continuing the medication Departure Departure Time of Disposition 1711 Disposition DC Home or Self Care(routine) Clinical Impression Primary Impression: Medication requested Condition STABLE Additional Instructions Follow up with [employer] and discuss the need to stay on Cardizem Go to [facility] and picker tender your new refills REturn if needed Follow up with family doctor for further evaluation and examination Discharge Counseling Counseled pt/family regarding diagnosis, follow up needs at 1711
--- NOTE | 2017-01-11 17:16 | Urgent Treatment Center Report ---
History of Present Issue Date/Time Seen by Provider 01/11/17 4420 Visit Reason Pt arrived:Walked Presenting Problem:RX REFILL Location if Accident: Onset of symptoms date/time:/ or onset unknown for:MEDICAL HX UNKNOWN Have you (or family members/close friends) recently traveled outside the [place]? N If Yes, where/when: Have you had exposure to infectious disease within the past month? TB? Other? Specify: Patient state that he was at [facility] as a patient and become aggitated with his treatment and signed himself out State that he came here to see if we could write him the medication he was on while he was in the Hospital State that he should be on some antibiotics and a heart medication. State that he had the nurse write down the medication he was taking at and they where Cardizem, Digoxin, Azithromycin, and Zosyn ALLERGIES Coded Allergies: peanut (Mild, SOB, SWELLING 03/27/16) Home Medications Active Scripts Pantoprazole Sodium (Protonix 40MG TAB) 40 MG PO DAILY #30 TAB Prov: 12/13/16 Epinephrine (Epipen 2-Boby) 1 MG MR ONCE PRN severe allergic reaction #1 KIT Prov: 11/20/15 ASPIRIN (Aspirin) 81 MG PO DAILY #30 Ref 5 Prov: 11/25/15 Reported Medications No Home Medications (NO HOME MEDICATIONS) 1 EACH XX ONCE History Medical History General CAD? Yes Angina: Yes [place]: No Hypertension? Yes Hyperlipidemia? No CHF? No DVT? No PE? No COPD? No Asthma? No Anemia? No GERD? No Gastric ulcers? No GI Bleed? No Hernia? Yes Thyroid Problems? Yes Hypothyroidism? No CVA? No Seizures? Yes Diabetes? No Insulin Dependent: No Insulin Pump: No Home FSBS? No Renal Insuffiency? No UTI? No Stones? No BPH? No GB Disease: No Nephritic Syndrome? No Asplenia? No Hepatitis? No Sickle Cell Disease? No Arthritis? No Migraines? No Cataracts? No Glaucoma? No MRSA? No HIV? No TB? No Anxiety? No Depression? No Cancer? No More? Yes Additional hx: CHRONIC PAIN chronic low back pain chronic migraine headaches Bipolar disease Paranoid Schizophrenia Immunization HX DT/Tetanus 5-10 Years Ago Pneumonia Refuses Surgical Hx Previous Surgery?Y RECONSTRUCTIVE FACIAL SWATI Appendectomy BACK SURGERY X2 HERNIA SX X 2 03/17 CARDIAC CATH Family History Family HX Diabetes No CAD Yes Hypertension No Hyperlipidemia Yes Cancer No TB No Social History Smoking Hx Smoker: Never Smoker Tobacco: No Packs/day 1 1/2 - 2 Packs Alcohol Alcohol: No Review of Systems All Other Systems Reviewed and Negative Physical Exam Vital Signs Vital Signs Date Time Temp Pulse Resp B/P Pulse O2 O2 Flow FiO2 Ox Delivery Rate 01/11 1640 98.4 106 20 128/53 98 General Appearance normal appearance, WD/WN, no apparent distress Respiratory Status Yes: trachea midline, chest symmetrical, non tender chest. No: respiratory distress. Cardiovascular regular rate/rhythm Neurologic alert, normal exam, oriented x 3 Medical Decision Making LABS/Meds/Orders Pt receiving controlled substance in ED? No Progress [facility] Progress Notes Comment Paitient gets medication filled at [facility] Called pharmacy and they state that Dr Smith called in medication for patient earlier including Azithromycin and Digoxin. Patient informed that medication was at pharmacy and he wanted someone to write Cardizem, advised patient that he needed to checke with his [employer] Operator that maybe where he called in all the other medication he may have not wanted him to continue on the medication and he needed to consult with him about continuing the medication Departure Departure Time of Disposition 1711 Disposition DC Home or Self Care(routine) Clinical Impression Primary Impression: Medication requested Condition STABLE Additional Instructions Follow up with Filling [employer]pling [employer] Operator and discuss the need to stay on Cardizem Go to [facility] and sampler pickup your new refills REturn if needed Follow up with family doctor for further evaluation and examination Discharge Counseling Counseled pt/family regarding diagnosis, follow up needs at 1718
[2017-01-11 17:21] VITALS: BP 128/53
== END 2017-01-11 17:22 | disposition home or self-care (01) ==
LOC: UTC 16:17
DX: Z76.0 Encounter for issue of repeat prescription (principal); I10 Essential (primary) hypertension; I25.10 Atherosclerotic heart disease of native coronary artery without angina pectoris; R56.9 Unspecified convulsions; Z79.899 Other long term (current) drug therapy; Z91.010 Allergy to peanuts; Z79.82 Long term (current) use of aspirin

== ENCOUNTER 2017-01-19 12:16 | Emergency (ER) | payer MEDICAID ==
[~2017-01-19] VITALS: Ht 175.3 cm; Wt 59.0 kg
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
--- OUTSIDE RECORDS SUMMARY | 2017-01-19 12:44 | External Medical Summary Rpt | CCD ---
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, unspecified I25.10 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-14-2017 otic heart disease of [place] coronary artery without angina pectoris I31.3 Pericardial 01-14-2017 effusion (noninflamm atory) I31.9 Disease of 01-14-2017 pericardium , unspecified I48.92 Unspecified 01-14-2017 atrial flutter J18.9 Pneumonia, 01-14-2017 unspecified organism J90 Pleural 01-14-2017 effusion, not elsewhere classified R00.0 Tachycardia 01-14-2017 , unspecified Z68.20 Body mass 01-14-2017 index (BMI) 20.0-20.9, adult Z82.49 Family 01-14-2017 history of ischemic heart disease and other diseases of the circulatory system R07.89 OTHER CHEST 12-29-2016 PAIN R07.9 CHEST PAIN, 12-29-2016 UNSPECIFIED Z91.010 ALLERGY TO 12-29-2016 PEANUTS I50.9 HEART FAILURE, UNSPECIFIED I51.7 CARDIOMEGAL Y J18.1 LOBAR PNEUMONIA, UNSPECIFIED ORGANISM N47.7 OTHER INFLAMMATOR Y DISEASES OF PREPUCE R10.9 UNSPECIFIED ABDOMINAL PAIN Results Labs Lab Lab Date Result Refere Interp Status Commen Order Detail nces retati t Range on Bacteria XXX Anaerobe+Aerobe Cult (01-08-2017 23:49) Bacteri [id number] complet a XXX 017 06 No ed Anaerob 23:49 growth e+Aerob (qualif e Cult ier value) SCT NGB6 NO GROWTH DAY 5. L Comment: No growth (qualifier value) SPECIME [id number] complet N 017 03 ed CONTAIN 23:49 blood ER volume INFO: estimat ion (proced ure) SCT BVA BLOOD CULTURE VOLUME ACCEPTA BLE L SPECIME FANB complet N 017 AEROBIC ed CONTAIN 23:49 FAN ER AND INFO: ANAEROB IC BLOOD CULTURE BOTTLES L Bacteria XXX Anaerobe+Aerobe Cult (01-08-2017 23:49) Bacteri [id number] complet a XXX 017 06 No ed Anaerob 23:49 growth e+Aerob (qualif e Cult ier value) SCT NGB5 NO GROWTH DAY 4. L SPECIME [id number] complet N 017 03 ed CONTAIN 23:49 [...] Bacteria XXX Anaerobe+Aerobe Cult (01-08-2017 20:49) Bacteri [id number] complet a XXX 017 06 No ed Anaerob 20:49 growth e+Aerob (qualif e Cult ier value) SCT NGB6 NO GROWTH DAY 5. L SPECIME [id number] complet N 017 0 ed CONTAIN 20:49 decreas ER ed INFO: blood volume (findin g) SCT BVL SUBMITT ED BLOOD VOLUME WAS LOW L SPECIME BCSET complet N 017 AEROBIC ed CONTAIN 20:49 AND ER ANAEROB INFO: IC BLOOD CULTURE BOTTLES L TSH SerPl DL<=0.005 mIU/L-aCnc (01-08-2017 17:34) TSH 1.13 0.4-4.2 complet SerPl 017 uIU/mL ed DL<=0.0 17:34 05 mIU/L-a Cnc Phosphate SerPl-mCnc (01-08-2017 17:34) Phospha 1.9 2.5-4.5 complet te 017 mg/dL ed SerPl-m 17:34 Cnc Magnesium SerPl-mCnc (01-08-2017 17:34) Magnesi 2.0 1.9-2.4 complet um 017 mg/dL ed SerPl-m 17:34 Cnc Ca-I SerPl ISE-sCnc (01-08-2017 17:34) Ca-I 4.4 4.6-5.1 complet SerPl 017 mg/dL ed ISE-sCn 17:34 c Lactate Bld-sCnc (01-08-2017 17:34) Lactate 1.5 complet 017 mmol/L ed Bld-sCn 17:34 c Blood lactic acid measurement (moles/vol (01-08-2017 11:10) Blood = 1.9 0.4-2.0 complet lactic 017 mmol/L ed acid 11:10 measure ment (moles/ vol Rapid influenza A and B antigen detectio (01-08-2017 09:58) INFLUEN NOT NOT complet ZA B 017 DETECTE DETECTD ed ANTIGEN 09:58 D Influen NOT NOT complet za A ag 017 DETECTE DETECTD ed QL 09:58 D NOT DETECTE D L Influenza virus A+B Ag [Presence] in Unspecified specimen (01-08-2017 09:58) Influen NOT NOT complet za 017 DETECTE DETECTD ed virus A 09:58 D Ag [Presen ce] in Unspeci fied specime n INFLUEN NOT NOT complet ZA B 017 DETECTE DETECTD ed ANTIGEN 09:58 D Brain natriuretic peptide (01-08-2017 09:40) Brain = 338 0-100 complet natriur 017 pg/mL ed etic 09:40 peptide Comprehensive metabolic panel (01-08-2017 09:40) Protein = 7.4 6.4-8.2 complet total 017 gm/dL [...] NORMAL ed estimat 09:40 L e Monocyt = 5 % 2-9 complet e % 017 ed 09:40 LYMPH 5 % 10-50 complet 017 ed 09:40 Percent = 2 % 0-5 complet of 017 ed variant 09:40 lymphoc ytes in blood CBC w auto diff (01-08-2017 09:40) Blood = 17.3 4.8-10. complet leukocy 017 K/MM3 8 ed mary lou 09:40 count (number /volume ) Automat = 13.2 11.5-17 complet ed 017 % .5 ed erythro 09:40 cyte distrib ution width Red = 3.74 4.6-6.2 complet blood 017 M/mm3 ed cell 09:40 count Blood = 398 142-424 complet platele 017 K/mm3 ed t count 09:40 Automat = 7.8 7.4-10. complet ed 017 fl 4 ed blood 09:40 platele t mean volume vick Maury % = 7.8 % 1.7-9.3 complet 017 ed 09:40 Absolut = 1.4 0.1-1.0 complet e 017 K/mm3 ed monocyt 09:40 e count Automat = 93.9 82.2-97 complet ed 017 fl .8 ed erythro 09:40 cyte mean corpusc ular v Automat = 31.9 31.8-35 complet ed 017 g/dl .4 ed erythro 09:40 cyte mean corpusc ular h Mean = 29.9 27-31.2 complet corpusc 017 pg ed ular 09:40 hemoglo bin (MCH) determ Lymphoc = 7.0 % 10-50 complet yte 017 ed count, 09:40 blood, automat ed Absolut = 1.2 0.7-4.5 complet e 017 K/mm3 ed lymphoc 09:40 yte count Blood = 11.3 14.1-18 complet hemoglo 017 g/dL .0 ed bin 09:40 measure ment (mass/v olum Blood = 35.2 42.0-52 complet hematoc 017 % .0 ed rit 09:40 (volume fractio n) Granulo = 83.7 37.0-80 complet cyte 017 % .0 ed percent 09:40 age Blood = 14.5 1.3-8.0 complet granulo 017 K/mm3 ed cytes 09:40 automat ed count (numb Automat = 1.2 % 0.1-12. complet ed 017 0 ed blood 09:40 eosinop hils/10 0 leukocy t Automat = 0.2 0.0-0.4 complet ed 017 K/mm3 ed blood 09:40 eosinop hil count Baso % = 0.3 % 0.1-2.0 complet 017 ed 09:40 Automat = 0.1 0-0.2 complet ed 017 K/MM3 ed blood 09:40 basophi l count (count/ vo Differential panel, method unspecified - (01-08-2017 09:40) LYMPH 5 % 10% - Low complet 017 50% ed 09:40 Platele NORMAL complet ts 017 ed [Presen 09:40 ce] in Blood by Light microsc opy Glucose capillary blood glucometer (12-13-2016 00:30) Glucose = 109 70-110 complet 017 mg/dl ed capilla 00:[address] Urine 9-analyte drugs of abuse screening (12-12-2016 [...] NEGATIV screeni E L ng test ng/mL Urinalysis with microscopy (12-12-2016 23:30) Urine 3 - 5 O complet leukocy 017 wbc/hpf ed mary lou 23:30 count (number /volume ) Urine 0.2 0.2 NEG complet urobili 017 L ed nogen 23:30 E.U./dL detecti on by test str Urine = 1.015 1.005-1 complet specifi 017 .030 ed c 23:30 gravity measure ment Urine = TRACE NEG complet protein 017 mg/dL ed 23:30 measure ment by automat ed t Urine = 6.5 5.0-8.5 complet pH 017 ed 23:30 Urine NEGATIV NEG complet nitrite 017 E ed 23:30 NEGATIV detecti E L on by test strip Mucus 10-14-2 4+ 4+ L NONE complet detecti 017 ed on in 23:30 urine sedimen t by lig Mucus 12-12-2 NEGATIV NEG complet detecti 017 E ed on in 23:30 NEGATIV urine E L sedimen t by lig Urine 12-12-2 1+ 1+ L NEG complet ketones 017 mg/dL ed 23:30 detecti on by automat ed mary lou Glucose 12-12-2 = NEG complet ur 017 NEGATIV ed test 23:30 E strip Urine 12-12-2 YELLOW YELLOW complet color 017 YELLOW ed 23:30 L Urine 12-12-2 NEGATIV NEG complet blood 017 E ed detecti 23:30 NEGATIV on E L Urine 12-12-2 NEGATIV NEG complet total 017 E ed bilirub 23:30 NEGATIV in E L detecti on by test Amorpho 12-12-2 TRACE NONE complet us 017 TRACE L ed sedimen 23:30 t detecti on in urine se Urine 12-12-2 CLEAR CLEAR complet appeara 017 CLEAR L ed nce 23:30 determi nation Drugs identified in Urine by Screen method (12-12-2016 23:30) Ampheta 12-12-2 NEGATIV <1000 complet mine 017 E ed [Presen 23:30 ce] in Urine by Screen method 11-Hydr 2 POSITIV <50 Abnorma complet oxy 017 E l ed delta-9 23:30 tetrahy drocann abinol [Presen ce] in Unspeci fied specime n Urinalysis dipstick W Reflex Microscopic panel in Urine (12-12-2016 23:30) Amorpho 10-14-2 TRACE NONE complet us 017 ed sedimen 23:30 t [Presen ce] in Urine sedimen t by Light microsc opy Mucus 12-12-2 4+ NONE complet [Presen 017 ed ce] in 23:30 Urine sedimen t by Light microsc opy Leukocy 12-12-2 3-5 O complet mary lou 017 wbc/hpf ed [#/volu 23:30 me] in Urine Urinalysis dipstick W Reflex Microscopic panel in Urine (12-12-2016 23:30) Appeara 10--2 CLEAR CLEAR complet nce of 017 ed [...] strip Comprehensive metabolic panel (12-12-2016 22:50) Protein = 7.8 6.4-8.2 complet total 017 gm/dL ed ser/rené 22:50 s ALT = 15 12-78 complet (SGPT) 017 U/L ed ser/rené 22:50 s Serum = 16 15-37 complet or 017 [...] SQUARE METERS Comment: If this patient is -Belarusian, then multiply the Comment: result by 1.210. [...] blood 22:50 platele t mean volume vick Maury % = 7.5 % 1.7-9.3 complet 017 [...] ular 22:50 hemoglo bin (MCH) determ Lymphoc = 18.0 10-50 complet yte 017 [...] 22:50 eosinop hils/10 0 leukocy t Automat 2 = 0.1 0.0-0.4 complet ed 017 K/mm3 ed blood 22:50 eosinop hil count Baso % = 0.5 % 0.1-2.0 complet 017 ed 22:50 Automat 2 = 0.1 0-0.2 complet ed 017 K/MM3 [...]
--- OUTSIDE RECORDS SUMMARY | 2017-01-19 12:44 | External Medical Summary Rpt | CCD ---
Author Author , NAPOLEON BENDER Address Unknown Phone [email or web address] Purpose Continuity of Care Document - 06-19-2013 [...] I25.10 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-14-2017 otic heart disease of [place] coronary artery without angina pectoris I31.3 Pericardial [...] Bacteria XXX Anaerobe+Aerobe Cult (01-08-2017 23:49) Bacteri [id number] complet a XXX 017 06 No ed Anaerob 23:49 growth e+Aerob (qualif e Cult ier value) SCT NGB6 NO GROWTH DAY 5. L Comment: No growth (qualifier value) SPECIME [id number] complet N 017 03 ed CONTAIN 23:49 blood ER volume INFO: estimat ion (proced ure) SCT BVA BLOOD CULTURE VOLUME ACCEPTA BLE L SPECIME FANB complet N 017 AEROBIC ed CONTAIN 23:49 FAN ER AND INFO: ANAEROB IC BLOOD CULTURE BOTTLES L Bacteria XXX Anaerobe+Aerobe Cult (01-08-2017 23:49) Bacteri [id number] complet a XXX 017 06 No ed Anaerob 23:49 growth e+Aerob (qualif e Cult ier value) SCT NGB5 NO GROWTH DAY 4. L SPECIME [id number] complet N 017 03 ed CONTAIN 23:49 [...] Bacteria XXX Anaerobe+Aerobe Cult (01-08-2017 20:49) Bacteri [id number] complet a XXX 017 06 No ed Anaerob 20:49 growth e+Aerob (qualif e Cult ier value) SCT NGB6 NO GROWTH DAY 5. L SPECIME [id number] complet N 017 0 ed CONTAIN 20:49 [...] blood 09:40 platele t mean volume vick [place] % = 7.8 % 1.7-9.3 complet 017 [...] SQUARE METERS Comment: If this patient is -[place]banian, then multiply the Comment: result by 1.210. [...] blood 22:50 platele t mean volume vick [place] % = 7.5 % 1.7-9.3 complet 017 [...]
--- OUTSIDE RECORDS SUMMARY | 2017-01-19 12:46 | External Medical Summary Rpt | CCD ---
Author Author , NAPOLEON Organization NAPOLEON Address Unknown Phone [email or web address] Providers Care Teacher Drama Name Role Phone ANGELES BOWLES, ANGELES Unavailable Unavailable [facility] Unavailable Unavailable HOSPITA, [facility] Unavailable Unavailable INC, [facility] Unavailable [facility]available HOSPITAL, [facility] Unavailable [facility]available HOSPITAL P, [facility], Unavailable Unavailable [facility] Unavailable Unavailable GROUP PS, [facility] Unavailable [facility]available [facility]ING [facility], [facility] Unavailable Unavailable ASSOCIAT, [facility], [facility] HERNANDE[facility], Unavailable Unavailable [facility], Unavailable Unavailable PLL[facility], [facility], [facility] Unavailable Unavailable EMERGENCY PHYS, [facility], Unavailable Unavailable [facility] Purpose Continuity of Care Document - 08-17-2014 through 2016 Problems Code Diagnosis DOS Provider Status J449 CHRONIC 12-12-2016 [place] OBSTRUCTIVE [facility]ICAL PULMONARY IMAGING ASS DISEASE UNS R072 PRECORDIAL 12-12-2016 [facility] PAIN [facility], [facility] R079 CHEST PAIN 12-12-2016 [place] UNSPECIFIED MEDICAL IMAGING ASS I10 ESSENTIAL 11-03-2016 [place] [facility] HYPERTENSIO INC N I2510 ASHD [place] 11-03-2016 [place] [facility]ARY [facility] ARTERY W/O INC ANGINA PECT[place]IS R0602 SHORTNESS 11-03-2016 [place] OF BREATH [facility]ICAL IMAGING ASS R1013 EPIGASTRIC 11-03-2016 [place] PAIN [facility]ICAL IM[facility] ASS R109 UNSPECIFIED 11-03-2016 [facility] ABDOMINAL [facility], PAIN PLLC Z720 TOBACCO USE 11-03-2016 [facility] INC G8918 OTHER ACUTE 03-31-2016 [facility] POSTPROCEDU INC RAL PAIN K4090 UNILAT 03-27-2016 [facility] SOHAM W/O GROUP OBST/GANGRE N NOT RECUR [id number] INFECTION 03-27-2016 [facility] FOLLOWING PHYSICIANS, PROCEDURE PLL INITIAL ENCOUNTER [id number] ENCOUNTER 03-24-2016 [facility] PREPROCEDUR INC AL LABORATORY EXAM G12822 MIGRAINE 03-15-2016 [facility] W/[facility] NOT INTRACT INC W/O STAT MIGRAIN M545 LOW BACK 03-15-2016 [facility] INC R200 ANESTHESIA 03-15-2016 [facility] OF SKIN PHYSICIANS, [facility] T14059 OTHER 12-26-2015 [facility] MIGRAINE INTRACT W/O STATUS MIGRAINOSUS N529 MALE 12-26-2015 [facility] ERECTILE DYSFUNCTION UNSPECIFIED I209 ANGINA 11-25-2015 [facility] UNSPECIFIED GROUP I340 NONRHEUMATI 11-25-2015 [facility] INSUFFICIEN CY I361 NONRHEUMATI 11-25-2015 [place] [facility] TRICUSPID SERV [facility] INSUFFICIEN CY I5189 OTHER 11-25-2015 [place] [facility]-DEFINED SERV HEART [facility] DISEASES R55 SYNCOPE AND 11-25-2015 [facility] CO[facility]ANS GROUP I480 PAROXYSMAL 11-24-2015 [facility] P N [id number] ANAPHYLACTI 11-20-2015 [facility] DUE PEANUTS INC INIT ENCOUNTER [id number] ANAPHYLACTI 11-20-2015 [facility] SHOCK PHYSICIANS, UNSPECIFIED [facility] INITIAL ENCOUNTER R51 HEADACHE 11-03-2015 [facility], [facility] 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 09-26-2015 [place] SINGLE MEDICAL THYROID IMAGING ASS NODULE R1310 DYSPHAGIA 09-26-2015 [place] UNSPECIFIED MEDICAL IMAGING ASS R634 ABNORMAL 09-26-2015 [place] WEIGHT LOSS MEDICAL IMAGING ASS Z88385 EFFUSION 09-18-2015 [place] RIGHT KNEE MEDICAL IMAGING ASS Q84153 PAIN IN 09-18-2015 [place] RIGHT KNEE MEDICAL IMAGING ASS A30995T STRAIN UNS 09-18-2015 [facility] MUSCLE PHYSICIANS, TENDON LOW [facility] LEG RT LEG INIT ENC Y4489XM UNS INJURY 09-18-2015 [place] RT LOWER MEDICAL LEG INITIAL IMAGING ASS ENCOUNTER M82630S UNSPECIFIED 09-18-2015 [place] INJURY MEDICAL RIGHT ANKLE IMAGING ASS INITIAL ENCOUNTER S48307V UNSPECIFIED 09-18-2015 [place] INJURY MEDICAL RIGHT FOOT IMAGING ASS INITIAL ENCOUNTER E069 THYROIDITIS 08-30-2015 [facility] UNSPECIFIED GROUP R946 ABNORMAL 08-20-2015 [place] RESULTS OF [facility] THYROID INC FUNCTION STUDIES K088 OT SPEC 06-07-2015 [facility] DON TEETH & SUPPORTING STRUCTURES M5022 OTH CERV 06-05-2015 [place] DISC ORTHOPEDIC DISPLACEMEN ASSOCIAT T MID-CERVICA L REGION M5116 INTERVERTEB 06-05-2015 [place] RAL DISC ORTHOPEDIC D/O ASSOCIAT W/RADICULOP ATHY LUMB RGN K648 OTHER 05-18-2015 [facility] G8929 OTHER 03-20-2015 [facility] CH[facility] PAIN GROUP V09772 OTHER LONG 03-20-2015 [facility] TERM PHYSICIANS CURRENT GROUP DRUG THERAPY N471 PHIMOSIS 03-07-2015 [facility] [facility] PS N481 BALANITIS 03-01-2015 [facility] EMERGENCY PHYS R300 DYSURIA 03-01-2015 [facility] PH[facility] N410 ACUTE 02-23-2015 [place] [facility] INC 02493 OTHER 11-22-2014 [facility] V5869 LONG-TERM 11-22-2014 [place] (CURRENT) [facility] USE OF HOSPITAL OTHER MEDICATIONS 36540 HORDEOLUM 10-22-2014 [facility] V571 OTHER 10-05-2014 [place] PHYSICAL [facility] THERAPY INC 70405 UNSPECIFIED 09-27-2014 [place] [facility] [place] [address] INJURY OF 09-27-2014 [facility] NECK OTHER AND UNSPECIFIED E9298 LATE 09-27-2014 [place] [facility] EFFECTS OF SERV OTHER F[facility]ATION ACCIDENTS 9181 SUPERFICIAL 09-24-2014 [place] [facility] INJURY OF SERV [place] [facility] E9179 OTHER 09-23-2014 [place] [facility] STRIKING SERV AGAINST FOUNDATION W/WO SUBSEQUENT FALL V714 OBSERVATION 09-23-2014 [place] [facility] FOLLOWING SERV OTHER FOUNDATION ACCIDENT [id number] UNSPECIFIED 09-17-2014 [facility] BACKACHE PHYSICIANS, [facility] 8740 HEADACHE 09-17-2014 [facility], [facility] 1584 UNSPECIFIED 09-12-2014 [facility] DISORDER PHYSICIANS, TEETH&SUPPO [facility] RTING STRUCTURES 62988 UNSPECIFIED 08-17-2014 [place] SITE OF [facility] ANKLE INC SPRAIN AND STRAIN 9597 INJURY 08-17-2014 [place] OTHER&UNSPE MEDICAL CIFIED KNEE IMAGING ASS LEG ANKLE&FOOT Medications Na ND Rx Da Fi Fi Am Da Di Ph RX Ph St me C No te ll ll ou ys ag ar # ys at rm s nt no ma ic us Or Da si cy ia de te s n re d PA 68 10 11 30 30 00 WA Ac NT 64 -1 -1 .0 00 L- ti OP 50 5- 7- 00 07 MA ve RA 49 20 20 51 RT ZO 25 17 17 54 LE 4 23 PH AR SO MA D CY DR #5 40 91 MG TA B [place] 00 06 07 10 5 00 WA [...] ET CY NT HI AN A GA 03 04 60 30 00 HO Ac [...] 30 -2 -3 .0 00 ME ti [place] 00 4- 1- 00 06 TO ve OL 12 20 20 07 WN OL 60 17 17 23 1 80 PH FU AR MA MA RA CY TE 5 OF MG CY NT TA HI B AN A GA 68 02 03 60 30 00 HO Ac [...] 30 -2 -0 .0 00 ME ti [place] 00 7- 3- 00 06 TO ve [...] TA NT BL HI ET AN A HY 13 01 03 [address] 10 -2 -0 .0 00 IN ti OC 70 7- 3- 00 00 IC ve OD 01 20 20 42 ON 90 17 17 03 PH -A 5 62 AR CE MA TA CY MS NO PH EN 5- 32 5 OX 47 01 03 27 10 00 CL Ac YC 78 -2 -0 .0 00 IN ti OD 10 8- 3- 00 00 IC ve ON 22 20 20 42 -A 90 17 17 04 PH CE 5 93 AR TA MA MS CY NO PH EN 7. 5- 32 5 GA 68 01 03 60 30 00 HO Ac [...] NT BL HI ET AN A GA 68 12 02 60 30 00 HO Ac BA 00 -3 -0 .0 00 ME ti PE 10 0- 3- 00 06 TO ve NT 00 20 20 07 WN IN 70 16 17 43 3 68 PH 80 AR 0 MA MG CY TA OF BL ET CY NT HI AN A Encounters Encounter Start End Date Code Location Performer Type Date [facility] - 7 7 [facility] - 7 7 [facility] - 7 7 [facility] - 7 7 [facility] - 7 7 [facility] - 7 7 [facility] - 6 6 [facility] - 6 6 [facility] - 6 6 [facility] - 6 6 [facility] - 6 6 [facility] - 6 6 N [facility] - 5 5 N [facility] - 5 5 [facility] - 5 5 [facility] VONIT - 5 5 Y [facility] - 5 5 [facility]
--- OUTSIDE RECORDS SUMMARY | 2017-01-19 12:46 | External Medical Summary Rpt | CCD ---
Author Author , NAPOLEON Organization NAPOLEON Address Unknown Phone [email or web address] Immunization Name Date Rout CVX Reac Dose [...]
--- OUTSIDE RECORDS SUMMARY | 2017-01-19 12:46 | External Medical Summary Rpt | CCD ---
Author Author , NAPOLEON Organization NAPOLEON Address Unknown Phone [email or web address] Care Team Providers Care Senior Scientist Name Role Phone ANGELES BOWLES, ANGELES Unavailable Unavailable [facility] Unavailable [facility]available HOSPITA, [facility] Unavailable Unavailable INC, [facility] Unavailable Unavailable HOSPITAL, [facility] Unavailable Unavailable HOSPITAL P, [facility], Unavailable Unavailable [facility]available Unavailable GROUP PS, [facility] Unavailable Unavailable IM[facility]ING [facility], [facility] Unavailable Unavailable ASSOCIAT, [facility] Un[facility], [facility] HERNANDE[facility], Unavailable Unavailable [facility], Unavailable Unavailable PLLC, [facility], [facility] Unavailable Unavailable EMERGENCY PHYS, [facility], Unavailable Unavailable [facility] Purpose Continuity of Care Document - 08-17-2014 through 2016 Problems Code Diagnosis DOS Provider Status J449 CHRONIC 12-12-2016 [place] OBSTRUCTIVE MEDICAL PULMONARY IMAGING ASS DISEASE UNS R072 PRECORDIAL 12-12-2016 [facility] R079 CHEST PAIN 12-12-2016 [place] UNSPECIFIED MEDICAL IMAGING ASS I10 ESSENTIAL 11-03-2016 [place] [facility] HYPERTENSIO INC N I2510 ASHD [place] 11-03-2016 [place] CORONARY [facility] ARTERY W/O INC ANGINA PECTORIS R0602 SHORTNESS 11-03-2016 [place] OF BREATH MEDICAL IMAGING ASS R1013 EPIGASTRIC 11-03-2016 [place] PAIN MEDICAL IM[facility]ING ASS R109 UNSPECIFIED 11-03-2016 [facility] ABDOMINAL [facility]YSICIANS, PAIN PLLC Z720 TOBACCO USE 11-03-2016 [facility] G8918 OTHER ACUTE 03-31-2016 [facility] POSTPROCEDU INC RAL PAIN K4090 UNILAT 03-27-2016 [facility] INGUINAL PHYSICIANS SOHAM W/O GROUP OBST/GANGRE N NOT RECUR D630VUC INFECTION 03-27-2016 [facility] FOLLOWING PHYSICIANS, PROCEDURE PLL INITIAL ENCOUNTER T01031 ENCOUNTER 03-24-2016 [facility] PREPROCEDUR INC AL LABORATORY EXAM U30595 MIGRAINE 03-15-2016 [facility] W/O [facility] NOT INTRACT INC W/O STAT MIGRAIN M545 LOW BACK 03-15-2016 [facility] INC R200 ANESTHESIA 03-15-2016 [facility] OF SKIN PHYSICIANS, [facility] R51073 OTHER 12-26-2015 [facility] MIGRAINE INTRACT W/O STATUS MIGRAINOSUS N529 MALE 12-26-2015 [facility] ERECTILE DYSFUNCTION UNSPECIFIED I209 ANGINA 11-25-2015 [facility] PECTORIS PHYSICIANS UNSPECIFIED GROUP I340 NONRHEUMATI 11-25-2015 [place] [facility] INSUFFICIEN CY I361 NONRHEUMATI 11-25-2015 [place] [facility] TRICUSPID SERV [facility] INSUFFICIEN CY I5189 OTHER 11-25-2015 [place] [facility]-DEFINED SERV [facility] DISEASES R55 SYNCOPE AND 11-25-2015 [facility] COLLAPSE PHYSICIANS GROUP I480 PAROXYSMAL 11-24-2015 [facility] P N Q8393UI ANAPHYLACTI 11-20-2015 [facility] DUE PEANUTS INC INIT ENCOUNTER W810KMF ANAPHYLACTI 11-20-2015 [facility] SHOCK PHYSICIANS, UNSPECIFIED [facility] INITIAL ENCOUNTER R51 HEADACHE 11-03-2015 [facility], [facility] 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 09-26-2015 [place] SINGLE MEDICAL THYROID IMAGING ASS NODULE R1310 DYSPHAGIA 09-26-2015 [place] UNSPECIFIED MEDICAL IMAGING ASS R634 ABNORMAL 09-26-2015 [place] WEIGHT LOSS MEDICAL IMAGING ASS Q57698 EFFUSION 09-18-2015 [place] RIGHT KNEE MEDICAL IMAGING ASS Q97378 PAIN IN 09-18-2015 [place] RIGHT KNEE MEDICAL IMAGING ASS P65066W STRAIN UNS 09-18-2015 [facility] MUSCLE PHYSICIANS, TENDON LOW [facility] LEG RT LEG INIT ENC P8443VI UNS INJURY 09-18-2015 [place] RT LOWER MEDICAL LEG INITIAL IMAGING ASS ENCOUNTER K71513O UNSPECIFIED 09-18-2015 [place] INJURY MEDICAL RIGHT ANKLE IMAGING ASS INITIAL ENCOUNTER G55584T UNSPECIFIED 09-18-2015 [place] INJURY MEDICAL RIGHT FOOT IMAGING ASS INITIAL ENCOUNTER E069 THYROIDITIS 08-30-2015 [facility] UNSPECIFIED GROUP R946 ABNORMAL 08-20-2015 [place] RESULTS [facility] THYROID INC FUNCTION STUDIES K088 OT SPEC 06-07-2015 [facility] DIS[facility] DON TEETH & SUPPORTING STRUCTURES M5022 OTH CERV 06-05-2015 [place] DISC ORTHOPEDIC DISPLACEMEN ASSOCIAT T MID-CERVICA L REGION M5116 INTERVERTEB 06-05-2015 [place] RAL DISC ORTHOPEDIC D/O ASSOCIAT W/RADICULOP ATHY LUMB RGN K648 OTHER 05-18-2015 [facility] G8929 OTHER 03-20-2015 [facility] CHRONIC [facility]YSICIANS PAIN GROUP E64615 OTHER LONG 03-20-2015 [facility] TERM PHYSICIANS CURRENT GROUP DRUG THERAPY N471 PHIMOSIS 03-07-2015 [place] [facility] PS N481 BALANITIS 03-01-2015 [facility] EMERGENC[facility] PH[facility] R300 DYSURIA 03-01-2015 [facility] PH[facility] N410 ACUTE 02-23-2015 [place] [facility] INC 19560 OTHER 11-22-2014 [facility] V5869 LONG-TERM 11-22-2014 [place] (CURRENT) [facility] USE OF HOSPITAL OTHER MEDICATIONS 13825 HORDEOLUM 10-22-2014 [facility] V571 OTHER 10-05-2014 [place] PHYSICAL [facility] THERAPY INC 07183 UNSPECIFIED 09-27-2014 [place] [facility] [place] [address] INJURY OF 09-27-2014 [facility] NECK OTHER AND UNSPECIFIED E9298 LATE 09-27-2014 [place] [facility] EFFECTS OF SERV OTHER FOUNDATION ACCIDENTS 9181 SUPERFICIAL 09-24-2014 [place] [facility] IN[facility]URY OF SERV [place] [facility] E9179 OTHER 09-23-2014 [place] [facility] STRIKING SERV AGAINST FOUNDATION W/WO SUBSEQUENT FALL V714 OBSERVATION 09-23-2014 [place] [facility] FOLLOWING SERV OTHER FOUNDATION ACCIDENT [id number] UNSPECIFIED 09-17-2014 [facility] BACKACHE PHYSICIANS, [facility] 7440 HEADACHE 09-17-2014 [facility] 9514 UNSPECIFIED 09-12-2014 [facility] DISORDER PHYSICIANS, TEETH&SUPPO [facility] RTING STRUCTURES 87952 UNSPECIFIED 08-17-2014 [place] SITE OF MEM HOS[facility] ANKLE INC SPRAIN [...] DR #5 40 91 MG TA B IN 00 06 07 10 5 00 WA [...] 30 -2 -3 .0 00 ME ti IN 00 4- 1- 00 06 TO ve [...] 30 -2 -0 .0 00 ME ti IN 00 7- 3- 00 06 TO ve [...] 5 62 AR CE MA TA CY MA NO PH EN 5- 32 5 OX 47 01 03 27 10 00 CL Ac YC 78 -2 -0 .0 00 IN ti OD 10 8- 3- 00 00 IC ve ON 22 20 20 42 -A 90 17 17 04 PH CE 5 93 AR TA MA MA CY NO PH EN 7. 5- 32 [...] End Date Code Location Performer Type Date [facility] - 7 7 [facility] - 7 7 [facility] - 7 7 [facility] - 7 7 [facility] - 7 7 [facility] - 7 7 [facility] - 6 6 [facility] - 6 6 [facility] - 6 6 [facility] - 6 6 [facility] - 6 [facility] - 6 6 [facility] - 5 5 N [facility] - 5 5 [facility] - 5 5 [facility] VONIT - 5 5 Y [facility] URSULA - 5 5 [facility]
--- OUTSIDE RECORDS SUMMARY | 2017-01-19 12:46 | External Medical Summary Rpt | CCD ---
Author Author , N[facility] Organization [facility] Address Unknown Phone [email or web address] Immunization Name Date Rout CVX Reac Dose [...]
--- OUTSIDE RECORDS SUMMARY | 2017-01-19 12:47 | External Medical Summary Rpt ---
[...] 10 ZA B DETECTE DETECTD informa informa @[id number] ANTIGEN D tion in tion in 3 [...]
--- OUTSIDE RECORDS SUMMARY | 2017-01-19 12:47 | External Medical Summary Rpt ---
[...] 10 ZA B DETECTE DETECTD informa informa @[id number] ANTIGEN D tion in tion in 3 [...]
[2017-01-19 12:55] LABS: HEMOGLOBIN 11.1 g/dL (14.1-18.0); LYMPH # 0.9 K/mm3 (0.7-4.5)
[2017-01-19 13:12] LABS: BUN 12 mg/dL (7-18)
[2017-01-19 13:14] LABS: GFR (ESTIMATED) 103 ML/MIN (>60)
[2017-01-19 13:23] LABS: NEUTROPHILS 91 % (42-76)
--- NOTE | 2017-01-19 14:03 | RADIOLOGY REPORT PS360 ---
CHEST-PORTABLE HISTORY: Atrial fibrillation AFIB ORDERING PHYSICIAN: Pavithra Birmingham MD PATIENT AGE: 51 years COMPARISON: 01/08/2017 FINDINGS: There is cardiomegaly without failure. Enlarging left pleural effusion with consolidation in the left lower lobe noted. Atelectatic changes are present in the right lung base laterally. No acute bony anomalies. IMPRESSION: Enlarging left effusion with left basilar atelectasis and/or infiltrate. Minimal atelectatic change right lung base laterally
[2017-01-19 16:03] VITALS: BP 125/73
--- NOTE | 2017-01-19 21:56 | RADIOLOGY REPORT PS360 ---
PROCEDURE: 2-D M-mode and color Doppler study INDICATIONS FOR THE TEST: Chest pain+ COPD Heart Murmur Tobacco Smoking+ Palpitations Fatigue Syncope Edema Hypertension+Diabetes Mellitus Rheumatic Fever SOB+KO+Obesity Hyperlipidemia Family History HD Additional History hx of CVA PATIENT INFORMATION HEIGHT: 69 WEIGHT: 130 GENDER: Male B/P: 2-D/M-MODE INTERPRETATION: 2-D MEASUREMENTS OBSERVED VALUES IN CMS Right Ventricular Dimension (RVDd) 2.2 Interventricular Septum (Thickness)(IVsd) 1.1 Left Ventricular Internal Dimensions(LVIDd) 4.9 Left Ventricular Posterior Wall (Thickness)(LVPWd) 1.3 Aortic Root 3.5 Aortic Cusp Separation 2.2 Left Atrial Dimensions (LAD) 3.2 2D 1. The left atrium is mildly enlarged, left ventricle is normal size, there is no concentric left ventricular hypertrophy, there is marked abnormal septal motion, raising the concern is for presence of ventricular interdependence, visually estimated ejection fraction 50%. 2. The right atrium is moderately enlarged, right ventricle is mildly dilated. 3. The aortic valve is minimally thickened and fibrosed. 4. The mitral and tricuspid valve leaflets are minimally thickened. 5. The pulmonic valve is poorly visualized. 6. There is small pericardial effusion, and moderate to large left-sided pleural effusion seen, there appears to be marked thickening of the pericardial sac echocardiographically. DOPPLER INTERROGATION: Doppler interrogation of the aortic, mitral and tricuspid valve reveals presence of mild mitral and tricuspid regurgitation, because of the presence of atrial fibrillation there is a variation in the mitral and tricuspid inflow velocity. Presence of constrictive physiology cannot be excluded. CONCLUSION: 1. Biatrial enlargement, normal left ventricular size, visually estimated ejection fraction 50%, there is marked abnormal septal motion using the concern is for presence of ventricular interdependence and constrictive physiology. 2. There is small pericardial effusion, moderate to large size left-sided pleural effusion as well as echocardiographic appearance of marked thickening of pericardial sac raising the concern is for presence of constrictive pericarditis. A CT scan of the chest is recommended to evaluate the thickness of the pericardium. 3. Mild mitral and tricuspid regurgitation.
== END 2017-01-19 16:07 | disposition home or self-care (01) ==
LOC: ER 12:16
PROVIDERS: Emergency Medicine
DX: I48.92 Unspecified atrial flutter (principal); I10 Essential (primary) hypertension; F17.210 Nicotine dependence, cigarettes, uncomplicated; I25.10 Atherosclerotic heart disease of native coronary artery without angina pectoris; Z79.82 Long term (current) use of aspirin
CPT/HCPCS: J1742

== ENCOUNTER → 2017-01-20 | Day surgery (SDC) | payer MEDICAID ==
[2017-01-20 10:48] VITALS: BP 99/69
--- NOTE | 2017-01-20 13:28 | Procedure Note ---
Cardioversion Date of procedure: 01/20/17 Performing provider: Sixto Hummel PA-C Procedure performed: Synchronized electrical cardioversion Diagnosis: A. flutter with RVR Procedure summary: The patient was brought as an outpatient to the chemical laboratory scientist. After informed consent obtained and electrocardiogram verified atrial flutter with a rapid ventricular response patient was given IV sedation per anesthesia personnel. After adequate sedation obtained patient received a single synchronized 200 J shock which converted him from atrial flutter to a normal sinus rhythm. He tolerated the procedure well. He recovered without complications. Complications: None Conclusion: Successful electrical cardioversion at 1329
--- NOTE | 2017-01-20 13:28 | Procedure Note ---
Cardioversion Date of procedure: 01/20/17 Performing provider: Sixto Hummel PA-C Procedure performed: Synchronized electrical cardioversion Diagnosis: A. flutter with RVR Procedure summary: The patient was brought as an outpatient to the seed laboratory technician. After informed consent obtained and electrocardiogram verified atrial flutter with a rapid ventricular response patient was given IV sedation per anesthesia personnel. After adequate sedation obtained patient received a single synchronized 200 J shock which converted him from atrial flutter to a normal sinus rhythm. He tolerated the procedure well. He recovered without complications. Complications: None Conclusion: Successful electrical cardioversion at 1321
== END ==
LOC: CATHLAB 09:14
PROVIDERS: Internal Medicine
PROC: 5A2204Z Restoration of Cardiac Rhythm, Single (ICD-10-PCS; principal; 2017-01-20 11:00)
DX: I48.92 Unspecified atrial flutter (principal)

== ENCOUNTER 2017-02-05 13:48 | Emergency (ER) | payer MEDICAID ==
[~2017-02-05] VITALS: Ht 175.3 cm; Wt 74.8 kg
--- NOTE | 2017-02-05 14:10 | Emergency Room Report ---
History of Present Illness Time Seen by [id number] Presenting Problem in Triage Pt arrived:Walked Presenting Problem:SENT BY PCP RELATED TO HIS HEART ARRYTHMIA. HAS A HISTORY OF AFIB; AND PCP WANTS HIM SEEN BY CARDIOLOGY AND EVALUATED THROUGH ED Onset of symptoms date/time:/ or onset unknown for:MEDICAL HX UNKNOWN Treatment Prior to Arrival: PAIN COORDINATOR Provided by: Sepsis Risk Assessment: Temp: 97.8 B/P: 140/75 MAP: 96 Pulse: 82 Resp: 18 Recent fever? N Clinical Suspician of Infection? Y Mental Status: 1 - Regular (Normal Baseline) Sepsis Risk:Low Sepsis Risk Have you (or family members/close friends) recently traveled outside the [place]? N If Yes, where/when: Have you had exposure to infectious disease within the past month? TB? Other? Specify: Seen in this ED by this 01/19/17 for Aflutter requiring Diltiazem and, ultimately, cardioversion by Dr. Corrigan. He had a follow up with his PCP today and was noted to be once again in AF, but asymptomatic. States sent here from PCP office. Denies weight or skin changes. No chest pain or SOB. No calf pain. No neurological sx. No flu sx. No vomiting. ALLERGIES Coded Allergies: peanut (Mild, SOB, SWELLING 02/05/17) Home Medications Active Scripts Pantoprazole Sodium (Protonix 40MG TAB) 40 MG PO DAILY #30 TAB Prov: 12/13/16 Epinephrine (Epipen 2-Boby) 1 MG MR ONCE PRN severe allergic reaction #1 KIT Prov: 11/20/15 ASPIRIN (Aspirin) 81 MG PO DAILY #30 Ref 5 Prov: 11/25/15 Reported Medications No Home Medications (NO HOME MEDICATIONS) 1 EACH XX ONCE History Medical History General CAD? Yes Angina: Yes LA: No Hypertension? Yes Hyperlipidemia? No CHF? No DVT? No PE? No COPD? No Asthma? No Anemia? No GERD? No Gastric ulcers? No GI Bleed? No Hernia? Yes Thyroid Problems? Yes Hypothyroidism? No CVA? No Seizures? Yes Diabetes? No Insulin Dependent: No Insulin Pump: No Home FSBS? No Renal Insuffiency? No End Stage Renal Disease? No UTI? No Stones? No BPH? No GB Disease: No Nephritic Syndrome? No Asplenia? No Hepatitis? No Sickle Cell Disease? No Arthritis? No Migraines? No Cataracts? No Glaucoma? No MRSA? No HIV? No TB? No Anxiety? No Depression? No Cancer? No More? Yes Additional hx: CHRONIC PAIN chronic low back pain chronic migraine headaches Bipolar disease Paranoid Schizophrenia Immunization Hx Ped.Immunizations UTD Yes DT/Tetanus 5-10 Years Ago Flu 2015-FSN Pneumonia Refuses Surgical Hx Previous Surgery?Y RECONSTRUCTIVE FACIAL SWATI Appendectomy BACK SURGERY X2 HERNIA SX X 2 03/17 CARDIAC CATH Family History Family Hx Diabetes No CAD Yes Hypertension No Hyperlipidemia Yes Cancer No TB No Social History Smoking Hx Smoker: Current Every Day Smoker Tobacco: Yes Type Cigarettes Packs/day < 1 Pack Alcohol Alcohol: No Review of Systems All Other Systems Reviewed and Negative Cardiovascular see HPI Physical Exam Vital Signs Vital Signs Date Time Temp Pulse Resp B/P Pulse O2 O2 Flow FiO2 Ox Delivery Rate 02/05 1418 120 18 102/68 98 02/05 1350 97.8 82 18 140/75 98 General Appearance normal appearance, WD/WN, no apparent distress Eye Exam - bilateral eye normal exam, bilateral eye PERRL, bilateral eye EOMI Neck normal inspection, non-tender, supple, full range of motion Respiratory Status Yes: trachea midline, chest symmetrical, non tender chest. No: respiratory distress, tender on palpation, use of accessory muscles, pain on inspiration, pain on expiration, productive cough, non productive cough. Lung Sounds bilateral: normal breath sounds, lungs clear. Cardiovascular no peripheral edema, no gallop, no JVD, no murmur, no rub, normal peripheral pulses (irr irr) Peripheral Pulses Pulses normal Yes (irr irr but full) Gastrointestinal normal bowel sounds, normal exam, non tender, soft, no organomegaly, no pulsatile mass, no guarding, no rebound Extremities non-tender, normal range of motion, no calf tenderness, no pedal edema Strength 5 Upper Ext (L), 5 Upper Ext (R), 5 Lower Ext (L), 5 Lower Ext (R) Neurologic alert, normal exam, no motor/sensory deficits, oriented x 3 Glascow Coma Scale Glascow Coma Scale Response Value EYE response: 4 Spontaneously 4 MOTOR response: 6 OBEYS 6 VERBAL response: 5 Oriented & Converses 5 Total 15 Skin intact, normal color, warm/dry Medical Decision Making LABS/Meds/Orders Pt receiving controlled substance in ED? No Results/Orders Laboratory Tests 02/05/17 1415: Sodium 140, Potassium 3.5, Chloride 103, Carbon Dioxide 30, BUN 11, Creatinine 0.9, Estimated Creat Clear 105, Estimated GFR (MDRD) 90, Glucose 101, Calcium 9.2, Total Bilirubin 0.2, AST 18, ALT 20, Alkaline Phosphatase 81, Creatine Kinase 42, CK-MB (CK-2) Rel Index 1.2, CK and CKMB Interp < 0.5, Troponin I < 0.02, Total Protein 7.9, Albumin 2.8 L, Globulin 5.1 H, Albumin/Globulin Ratio 0.5 L, WBC 10.2, RBC 3.73 L, Hgb 10.6 L, Hct 34.5 L, MCV 92.7, RDW 13.6, Plt Count 622 H, MPV 7.3 L, Gran % 72.9, Gran # 7.5, Lymphocytes % 19.2, Monocytes % 6.2, Eosinophils % 1.2, Basophils % 0.5, Lymphocytes # 2.0, Monocytes # 0.6, Eosinophils # 0.1, Basophils # 0.1, PUBS MCHC 30.7 L, MCH 28.4, Digoxin < 0.20 L Current Medication Orders Sig/Hiral Start time Last Medication Dose Route Stop Time Status Admin Digoxin 0.25 MG ONCE ONE 02/05 1515 CKDr PO 02/05 1516 Diltiazem HCl 120 MG ONCE ONE 02/05 1430 DC 02/05 PO 02/05 1431 1430 Sodium Chloride 10 ML PRN PRN 02/05 1430 AC IV 02/06 1421 Diltiazem HCl 0 .STK-MED ONE 02/05 1428 DC PO Diltiazem HCl 20 MG ONCE ONE 02/05 1415 DC 02/05 IV 02/05 1416 1416 Sodium Chloride 1,000 ML .Q1H1M 02/05 1415 AC 02/05 IV 02/05 1515 1416 Sodium Chloride 10 ML PRN PRN 02/05 1415 AC IV 02/06 1409 Sodium Chloride 1,000 ML .STK-MED ONE 02/05 1410 DC IV Diltiazem HCl 0 .STK-MED ONE 02/05 1407 DC IV Orders Procedure Date/time Status ELECTROCARDIOGRAM REQUEST 02/05 1422 Active CHEST-PORTABLE 02/05 1422 Active IV SALINE LOCK 02/05 1422 Active CBC WITH AUTO DIFF 02/05 1422 Complete CARDIAC ENZYMES 02/05 142 Complete CHEM 12 PROFILE 02/05 1422 Complete DIGOXIN 02/05 140 Complete 12 LEAD EKG-JJ (INITIAL) 02/05 UNK Active CM/EKG 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 of ischemic chgs, no ectopy, normal QRS, normal EKG ( Aflutter 100-130's;dig eff lat) XRAY/CT/US XRAY/CT/US XRAY chest XR interpretation by reviewed by me Xray Results normal/NAD, no fracture seen, no infiltrates, normal heart size, normal lung inflation aayush Progress ED Progress Notes Date 02/05/17 Time 1504 Comment Diltiazem IV; pt in Aflutter but in the 80's to 90's; no symptoms; SBP in the low 100's; labs and CXR normal (other than subtherapeutic dig level). Departure Departure Time of Disposition 1505 Disposition DC Home or Self Care(routine) Clinical Impression Primary Impression: Atrial flutter with rapid ventricular response Secondary Impressions: History of atrial flutter, Medication refill Condition STABLE Referrals Jean Marie LANGE,Paco Agosto (Family) Patient Instructions Atrial Flutter Additional Instructions See Dr. Corrigan and Dr. Aj for follow up next week. Continue Diltiazem as prescribed; Rx Digoxin refill. Discharge Counseling Counseled pt/family regarding diagnosis, test results, medications/RX, home care, follow up needs Prescriptions Current Visit Scripts Digoxin (Digox) 0.25 MG PO DAILY #15 TAB Diltiazem HCl (Diltiazem 24HR Cd) 120 MG PO ONCE #15 MG ED Critical Care Critical Care Yes Time spent < 30 min Vital system(s) involved: Circulatory Failure (dysrhythmia) I was present at bedside for Coordinating pt's care, Interpreting EKGs/Strips , During my initial exam, Reviewing lab results, Discussing pt condition, For re -examinations, Examining radiographs at [id number]
--- OUTSIDE RECORDS SUMMARY | 2017-02-05 14:15 | External Medical Summary Rpt | CCD ---
Author Author , [facility] Organization [facility] Address Unknown Phone [email or web address] Care Team Providers Care Scrummaster Name Role Phone ANGELES WILBUR, ANGELES Unavailable Unavailable WILBUR CERNA, CERNA Unavailable Unavailable DOMINIC ALFARO Unavailable Unavailable CHEL, CHEL Unavailable Unavailable [facility] Unavailable Unavailable [facility], [facility] Unavailable Unavailable INC, [facility] Unavailable [facility]available HOSPITAL, [facility] Unavailable Unavailable HOSPITAL P, [facility], Unavailable Unavailable [facility] Unavailable GROUP PS, [facility] Unavailable Unavailable [facility], [facility] Unavailable Unavailable ASS[facility]AT, [facility] Unavailable Unavailable [facility], [facility] LEIL[facility] HERNANDEZ, Unavailable Unavailable [facility], Unavailable Unavailable [facility], [facility] Unavailable Unavailable EMERGENCY PHYS, [facility], Unavailable Unavailable [facility] Purpose Continuity of Care Document - 06-19-2013 [...] I25.10 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-14-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 [place] coronary artery without angina pectoris I31.3 Pericardial [...] 12-29-2016 UNSPECIFIED Z91.010 ALLERGY TO 12-29-2016 [facility] R0789 OTHER CHEST 12-23-2016 [facility] J449 CHRONIC 12-12-2016 [place] DISEASE UNS R072 PRECORDIAL 12-12-2016 [facility] PAIN [facility], [facility] R079 CHEST PAIN 12-12-2016 [place] UNSPECIFIED [facility] I10 ESSENTIAL 11-03-2016 [facility] HYPERTENSIO INC N I2510 [facility] [place] 11-03-2016 [facility] ARTERY W/O INC ANGINA [place] R0602 SHORTNESS 11-03-2016 [place] OF BREATH [facility]ICAL [facility] R1013 EPIGASTRIC 11-03-2016 [place]IN [facility] R109 UNSPECIFIED 11-03-2016 [facility] ABDOMINAL [facility], PAIN [facility] Z720 TOBACCO USE 11-03-2016 [facility] INC G8918 OTHER ACUTE 03-31-2016 [facility] POSTPROCEDU INC RAL PAIN K4090 UNILAT 03-27-2016 [facility] INGUINAL PHYSICIANS SOHAM W/O GROUP OBST/GANGRE N NOT RECUR J793YYS INFECTION 03-27-2016 [facility] FOLLOWING PHYSICIANS, PROCEDURE [facility] INITIAL ENCOUNTER F47028 ENCOUNTER 03-24-2016 [facility] PREPROCEDUR INC AL LABORATORY EXAM O63413 MIGRAINE 03-15-2016 [facility] W/O [facility] NOT INTRACT INC W/O STAT MIGRAIN M545 LOW BACK 03-15-2016 [facility] INC R200 ANESTHESIA 03-15-2016 [facility] OF SKIN PHYSICIANS, [facility] V08370 OTHER 12-26-2015 ANGELES BOWLES MIGRAINE INTRACT W/O STATUS MIGRAINOSUS N529 MALE 12-26-2015 ANGELES BOWLES ERECTILE DYSFUNCTION UNSPECIFIED I209 ANGINA 11-25-2015 [facility] P[facility]IS PHYSICIANS UNSPECIFIED GROUP I340 NONRHEUMATI 11-25-2015 [facility] INSUFFICIEN CY I361 NONRHEUMATI 11-25-2015 [place] [facility] TRICUSPID SERV [facility] INSUFFICIEN CY I5189 OTHER 11-25-2015 [facility] MEDICAL ILL-DEFINED SERV HEART FOUNDATION DISEASES R55 SYNCOPE AND 11-25-2015 [facility] COLLAPSE PHYSICIANS GROUP I480 PAROXYSMAL 11-24-2015 [facility] P N A5519IG ANAPHYLACTI 11-20-2015 [facility] DUE [facility] INC INIT ENCOUNTER B855SEB ANAPHYLACTI 11-20-2015 [facility]OCK [facility], UNSPECIFIED PLLC INITIAL ENCOUNTER R51 HEADACHE 11-03-2015 [facility] 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 09-26-2015 [place] SINGLE [facility] THYROID [facility]ING [facility] NODULE R1310 DYSPHAGIA 09-26-2015 [place] UNSPECIFIED [facility]ING ASS R634 ABNORMAL 09-26-2015 [place] WEIGHT LOSS [facility] F75099 EFFUSION 09-18-2015 [place] RIGHT [facility]NEE [facility] B31760 PAIN IN 09-18-2015 [place] [facility] Q56031Z STRAIN UNS 09-18-2015 [facility] MUSCLE PHYSICIANS, TENDON LOW PLLC LEG RT LEG INIT ENC B9861BC UNS INJURY 09-18-2015 [place] RT LOWER MEDICAL LEG INITIAL IMAGING ASS ENCOUNTER X02812K UNSPECIFIED 09-18-2015 [place] INJURY MEDICAL RIGHT ANKLE IMAGING ASS INITIAL ENCOUNTER M61276O UNSPECIFIED 09-18-2015 [place] INJURY MEDICAL RIGHT FOOT IMAGING ASS INITIAL ENCOUNTER E069 THYROIDITIS 08-30-2015 [facility] PHYSICIANS UNSPECIFIED GROUP R946 ABNORMAL 08-20-2015 [facility] RESULTS OF [facility] THYROID INC FUNCTION STUDIES K088 OTH SPEC 06-07-2015 [facility] DISORDERS DON TEETH & SUPPORTING STRUCTURES M5022 OTH CERV 06-05-2015 [place] DISC ORTHOPEDIC DISPLACEMEN ASSOCIAT T MID-CERVICA L REGION M5116 INTERVERTEB 06-05-2015 [facility] DISC ORTHOPEDIC D/O ASSOCIAT W/RADICULOP ATHY LUMB RGN K648 OTHER 05-18-2015 [facility] G8929 OTHER 03-20-2015 [facility] CHRONIC PHYSICIANS PAIN GROUP N68571 OTHER LONG 03-20-2015 [facility] TERM PHYSICIANS CURRENT GROUP DRUG THERAPY N471 PHIMOSIS 03-07-2015 [place] [facility] PS N481 BALANITIS 03-01-2015 [facility] EMERGENCY PHYS R300 DYSURIA 03-01-2015 [facility] EMERGENCY PHYS N410 ACUTE 02-23-2015 [facility] PROSTATITIS [facility] INC 58542 OTHER 11-22-2014 [facility] V5869 LONG-TERM 11-22-2014 [facility] (CURRENT) [facility] USE OF HOSPITAL OTHER MEDICATIONS 95971 HORDEOLUM 10-22-2014 [facility] V571 OTHER 10-05-2014 [place] PHYSICAL [facility] THERAPY INC 09367 UNSPECIFIED 09-27-2014 IN MEDICAL ACUTE [place] [address] INJURY OF 09-27-2014 [facility] OTHER AND UNSPECIFIED E9298 LATE 09-27-2014 IN MEDICAL EFFECTS OF SERV OTHER FOUNDATION ACCIDENTS 9181 SUPERFICIAL 09-24-2014 [place] [facility] INJURY OF SERV [place] [facility] E9179 OTHER 09-23-2014 IN MEDICAL STRIKING SERV AGAINST FOUNDATION W/WO SUBSEQUENT FALL V714 OBSERVATION 09-23-2014 IN MEDICAL FOLLOWING SERV OTHER FOUNDATION ACCIDENT [id number] UNSPECIFIED 09-17-2014 [facility] BACKACHE PHYSICIANS, [facility] 7840 HEADACHE 09-17-2014 [facility], [facility] 5259 UNSPECIFIED 09-12-2014 [facility] DISORDER PHYSICIANS, TEETH&SUPPO [facility] RTING STRUCTURES 21618 UNSPECIFIED 08-17-2014 [place] SITE OF [facility] ANKLE INC SPRAIN AND STRAIN 9597 INJURY 08-17-2014 [place] OTHER&UNSPE MEDICAL CIFIED [facility] LEG ANKLE&FOOT F60.89 OTHER SPECIFIC PERSONALITY DISORDERS H10.9 UNSPECIFIED CONJUNCTIVI TIS I50.9 HEART FAILURE, UNSPECIFIED I51.7 CARDIOMEGAL Y J18.1 LOBAR PNEUMONIA, UNSPECIFIED ORGANISM N47.7 OTHER INFLAMMATOR Y DISEASES OF PREPUCE R09.2 RESPIRATORY ARREST R10.9 UNSPECIFIED ABDOMINAL PAIN R51 HEADACHE S86.911A STRAIN OF UNSP MUSC/TEND AT LOWER LEG LEVEL, RIGHT LEG, INIT S96.911A STRAIN OF UNSP MSL/TND AT ANK/FT LEVEL, RIGHT FOOT, INIT Z76.0 ENCOUNTER FOR ISSUE OF REPEAT PRESCRIPTIO N Medications Na ND Rx Da Fi Fi [...] DR #5 40 91 MG TA B FL 00 06 07 10 5 00 WA [...] 30 -2 -3 .0 00 ME ti FL 00 4- 1- 00 06 TO ve [...] 30 -2 -0 .0 00 ME ti FL 00 7- 3- 00 06 TO ve [...] BL HI ET AN A GA 68 01 03 60 30 00 [...] 5 62 AR CE MA TA CY MO NO PH EN 5- 32 5 OX 47 01 03 27 10 00 CL Ac YC 78 -2 -0 .0 00 IN ti OD 10 8- 3- 00 00 IC ve ON 22 20 20 42 -A 90 17 17 04 PH CE 5 93 AR TA MA MO CY NO PH EN 7. 5- 32 5 GA 68 12 02 60 30 00 [...] Order Detail nces retati t Range on Differential panel, method unspecified - (01-19-2017 12:30) Blood = 100 complet total 017 #CELLS ed cell 12:30 count RBC NORMAL complet morphol 017 NORMAL ed ogy 12:30 L Neutrop = 91 % 42-76 complet hil 017 ed count 12:30 Platele MARKED complet t 017 INCREAS ed estimat 12:30 E e MARKED INCREAS E L Monocyt = 3 % 2-9 complet e % 017 ed 12:30 LYMPH 6 % 10-50 complet 017 ed 12:30 CBC w auto diff (01-19-2017 12:30) Automat = 0.1 0-0.2 complet ed 017 K/MM3 ed blood 12:30 basophi l count (count/ vo Blood = 14.4 4.8-10. complet leukocy 017 K/MM3 8 ed mary lou 12:30 count (number /volume ) Automat = 13.7 11.5-17 complet ed 017 % .5 ed erythro 12:30 cyte distrib ution width Red = 3.71 4.6-6.2 complet blood 017 M/mm3 ed cell 12:30 count Blood = 571 142-424 complet platele 017 K/mm3 ed t count 12:30 Automat = 7.5 7.4-10. complet ed 017 fl 4 ed blood 12:30 platele t mean volume vick Montmore[place]cy % = 5.9 % 1.7-9.3 complet 017 ed 12:30 Absolut = 0.9 0.1-1.0 complet e 017 K/mm3 ed monocyt 12:30 e count Automat = 94.0 82.2-97 complet ed 017 fl .8 ed erythro 12:30 cyte mean corpusc ular v Automat = 31.7 31.8-35 complet ed 017 g/dl .4 ed erythro 12:30 cyte mean corpusc ular h Mean = 29.8 27-31.2 complet corpusc 017 pg ed ular 12:30 hemoglo bin (MCH) determ Lymphoc = 6.0 % 10-50 complet yte 017 ed count, 12:30 blood, automat ed Absolut = 0.9 0.7-4.5 complet e 017 K/mm3 ed lymphoc 12:30 yte count Blood = 11.1 14.1-18 complet hemoglo 017 g/dL .0 ed bin 12:30 measure ment (mass/v olum Blood = 34.8 42.0-52 complet hematoc 017 % .0 ed rit 12:30 (volume fractio n) Granulo = 86.6 37.0-80 complet cyte 017 % .0 ed percent 12:30 age Blood = 12.5 1.3-8.0 complet granulo 017 K/mm3 ed cytes 12:30 automat ed count (numb Automat = 1.0 % 0.1-12. complet ed 017 0 ed blood 12:30 eosinop hils/10 0 leukocy t Automat = 0.1 0.0-0.4 complet ed 017 K/mm3 ed blood 12:30 eosinop hil count Baso % = 0.5 % 0.1-2.0 complet 017 ed 12:30 Serum or plasma thyroid stimulating horm (01-19-2017 12:30) Serum 01-19-2 = 0.92 0.358-3 complet or 017 uIU/ml .740 ed plasma 12:30 thyroid stimula ting horm Comprehensive metabolic panel (01-19-2017 12:30) Serum = 0.5 1.1-1.8 complet or 017 ed plasma 12:30 albumin /globul in mass ra Protein = 7.3 6.4-8.2 complet total 017 gm/dL ed ser/rené 12:30 s ALT = 28 12-78 complet (SGPT) 017 U/L ed ser/rené 12:30 s Serum = 18 15-37 complet or 017 U/L ed plasma 12:30 asparta te aminotr ansfera Serum = 139 136-145 complet sodium 017 mmoL/L ed measure 12:30 ment Serum = 3.8 3.5-5.1 complet potassi 017 mmoL/L ed um 12:30 measure ment Serum = 134 74-106 complet or 017 mg/dL ed plasma 12:30 glucose measure ment (mas Serum = 4.9 1.3-3.2 complet globuli 017 gm/dL ed n 12:30 measure ment (mass/v olume) Estimat = 103 >60 complet ed 017 ML/MIN ed glomeru 12:30 lar filtrat ion rate (GF Comment: REFERENCE RANGE: >60 ML/MIN/1.73 SQUARE METERS Comment: If this patient is -[place], then multiply the Comment: result by 1.210. Estimat = 93 50-200 complet ion of 017 ML/MIN ed creatin 12:30 ine renal clearan ce Serum = 0.8 0.70-1. complet or 017 mg/dL 30 ed plasma 12:30 creatin ine measure ment ( Carbon = 30 21.0-32 complet dioxide 017 mmoL/L .0 ed 12:30 measure ment Serum = 102 98-107 complet or 017 mmoL/L ed plasma 12:30 chlorid e measure ment (mo Serum = 8.6 8.5-10. complet or 017 mg/dL 1 ed plasma 12:30 calcium measure ment (mas Serum = 12 7-18 complet or 017 mg/dL ed plasma 12:30 urea nitroge n measure men Serum = 0.4 0.2-1.0 complet or 017 mg/dL ed plasma 12:30 total bilirub in measure m Serum = 83 46-116 complet or 017 U/L ed plasma 12:30 alkalin e phospha tase vick Serum = 2.4 3.4-5.0 complet or 017 gm/dL ed plasma 12:30 albumin measure ment (mas Cardiac enzymes (01-19-2017 12:30) Serum < 0.02 0.00-0. complet or 017 ng/mL 06 ed plasma 12:30 troponi n i.cardi ac measu Serum = 32 39-308 complet or 017 U/L ed plasma 12:30 creatin e kinase measure m Serum < 0.5 0.0-3.6 complet or 017 ng/mL ed plasma 12:30 creatin e kinase MB measu Serum = 1.6 0-4.0 complet or 017 U/L ed plasma 12:30 creatin e kinase MB (CK-M Differential panel, method unspecified - (01-19-2017 12:30) LYMPH 6 % 10% - Low complet 017 50% ed 12:30 Platele MARKED complet ts 017 INCREAS ed [Presen 12:30 E ce] in Blood by Light microsc opy Erythro NORMAL complet cyte 017 ed morphol 12:30 ogy finding [Identi fier] in Blood Bacteria XXX Anaerobe+Aerobe Cult (01-08-2017 23:49) Bacteri [id number] complet a XXX 017 06 No ed Anaerob 23:49 growth e+Aerob (qualif e Cult ier value) SCT NGB6 NO GROWTH DAY 5. L Comment: No growth (qualifier value) SPECIME [id number] complet N 017 03 ed CONTAIN 23:49 blood ER volume INFO: estimat ion (proced ure) SCT BVA BLOOD CULTURE VOLUME ACCEPTA BLE L SPECIME FANB complet N 017 AEROBIC ed CONTAIN 23:49 FAN ER AND INFO: ANAEROB IC BLOOD CULTURE BOTTLES L Bacteria XXX Anaerobe+Aerobe Cult (01-08-2017 23:49) Bacteri [id number] complet a XXX 017 06 No ed Anaerob 23:49 growth e+Aerob (qualif e Cult ier value) SCT NGB5 NO GROWTH DAY 4. L SPECIME [id number] complet N 017 03 ed CONTAIN 23:49 [...] Bacteria XXX Anaerobe+Aerobe Cult (01-08-2017 20:49) Bacteri [id number] complet a XXX 017 06 No ed Anaerob 20:49 growth e+Aerob (qualif e Cult ier value) SCT NGB6 NO GROWTH DAY 5. L SPECIME [id number] complet N 017 0 ed CONTAIN 20:49 decreas ER ed INFO: blood volume (findin g) SCT BVL SUBMITT ED BLOOD VOLUME WAS LOW L SPECIME BCSET complet N 017 AEROBIC ed CONTAIN 20:49 AND ER ANAEROB INFO: IC BLOOD CULTURE BOTTLES L Lactate Bld-sCnc (01-08-2017 17:34) Lactate 1.5 complet [...] SerPl 017 mg/dL ed ISE-sCn 17:34 c Blood lactic acid measurement (moles/vol [...] 017 DETECTE DETECTD ed ANTIGEN 09:58 D Differential panel, method unspecified - (01-08-2017 09:40) [...] blood 09:40 platele t mean volume vick Montmorency % = 7.8 % 1.7-9.3 complet 017 [...] blood 09:40 basophi l count (count/ vo Comprehensive metabolic panel (01-08-2017 09:40) Protein = [...] 09:40 lar filtrat ion rate (GF Estimat 01-08-2 = 89 50-200 complet ion of 017 ML/MIN ed creatin 09:40 ine renal clearan ce Serum 01-08-2 = 0.9 0.70-1. complet or 017 mg/dL 30 ed plasma 09:40 creatin ine measure ment ( Carbon 01-08-2 = 29 21.0-32 complet dioxide 017 mmoL/L .0 ed 09:40 measure ment Serum 11-10-2 = 96 98-107 complet or 017 mmoL/L ed plasma 09:40 chlorid e measure ment (mo Serum 1110-2 = 8.8 8.5-10. complet or 017 mg/dL 1 ed plasma 09:40 calcium measure ment (mas Serum 11-2 = 16 7-18 complet or 017 mg/dL ed plasma 09:40 urea nitroge n measure men Serum 10-2 = 1.0 0.2-1.0 complet or 017 mg/dL ed plasma 09:40 total bilirub in measure m Serum = 97 46-116 complet or 017 U/L ed plasma 09:40 alkalin e phospha tase vick Serum 10-2 = 2.7 3.4-5.0 complet or 017 gm/dL ed plasma 09:40 albumin measure ment (mas Serum 10-2 = 0.6 1.1-1.8 complet or 017 ed plasma 09:40 albumin /globul in mass ra Brain natriuretic peptide (01-08-2017 09:40) Brain -10-2 = 338 0-100 complet natriur 017 pg/mL ed etic 09:40 peptide Differential panel, method unspecified - (01-08-2017 09:40) LYMPH 11-10-2 5 % 10% - Low complet 017 50% ed 09:40 Platele 11--2 NORMAL complet ts 017 ed [Presen 09:40 [...] E L detecti on by test Amorpho 12-12- TRACE NONE complet us 017 TRACE L [...] sedimen t by Light microsc opy Leukocy 12-12- 3-5 O complet mary lou 017 wbc/hpf ed [#/volu 23:30 me] in Urine Urinalysis dipstick W Reflex Microscopic panel in Urine (12-12-2016 23:30) Appeara 10-14-2 CLEAR CLEAR complet nce of 017 ed Urine 23:30 Bilirub 12-12-2 NEGATIV NEG complet in 017 E ed [Presen 23:30 ce] in Urine by Test strip Erythro 12-12-2 NEGATIV NEG complet cytes 017 E ed [Presen 23:30 ce] in Urine Color 12-12-2 YELLOW YELLOW complet of 017 ed Urine 23:30 Ketones 2 1+ NEG Abnorma complet 017 l ed [Presen 23:30 ce] in Urine by Automat ed test strip Mucus NEGATIV NEG complet [Presen 017 E ed ce] in 23:30 Urine sedimen t by Light microsc opy Nitrite NEGATIV NEG complet 017 E ed [Presen 23:30 ce] in Urine by Test strip Urobili 12-12-2 0.2 NEG complet nogen 017 ed [Presen [...] SQUARE METERS Comment: If this patient is -Palestinian, then multiply the Comment: result by 1.210. [...] blood 22:50 platele t mean volume vick Montmorency % = 7.5 % 1.7-9.3 complet 017 [...] cytes 22:50 automat ed count (numb Automat 10-14-2 = 1.0 % 0.1-12. complet ed 017 0 ed blood 22:50 eosinop hils/10 0 leukocy t Automat 12-12-2 = 0.1 0.0-0.4 complet ed 017 K/mm3 [...] Procedures Procedure DOS Code Location Performer Comment RADIOLOGI 86952 [place] [facility] EXAM 7 MEDICAL CHEST 2 IMAGING VIEWS ASS FRONTAL&L ATERAL Encounters Encounter Start End Date Code Location Performer Type Date EMERGENCY [address] [facility] DEPT 7 7 WAY[facility] VISIT EMERGENCY HIGH PHYS SEVERITY& THREAT [facility] EMERGENC[facility] [address]160 [facility] DEPT 7 7 PHYSICIAN [facility]ISIT S, [facility] HIGH SEVERITY& THREAT [facility] - 7 7 [facility] 7 [facility] - 7 7 [facility] - 7 7 [facility] - 7 7 [facility] - 7 7 [facility] - 6 6 [facility] - 6 6 [facility] - 6 6 [facility] - 6 [facility] - 6 [facility] - [address] [facility] - [address] [facility] - 5 5 [facility] - 5 5 [facility] - 5 5 Y [facility] - 5 5 [facility]
--- OUTSIDE RECORDS SUMMARY | 2017-02-05 14:15 | External Medical Summary Rpt | CCD ---
Author Author , NAPOLEON Organization NAPOLEON Address Unknown Phone [email or web address] Care Team Providers Care Disaster Recovery Specialist Name Role Phone ANGELES WILBUR, ANGELES Unavailable Unavailable WILBUR CERNA, CERNA Unavailable Unavailable DOMINIC ALFARO Unavailable Unavailable CHEL, CHEL Unavailable Unavailable [facility] Unavailable Unavailable HOSP[facility], [facility] Unavailable Unavailable INC, [facility] Unavailable Unavailable HOSPITAL, [facility] Unavailable Unavailable HOSPITAL P, [facility], [facility]available Unavailable [facility]available Unavailable GROUP PS, [facility] Unavailable Unavailable IM[facility]ING [facility], [facility] Unavailable Unavailable ASSOCIAT, [facility] Unavailable [facility]available [facility], [facility] LEILANI HERNANDEZ, Unavailable Unavailable [facility], Unavailable Unavailable PLL[facility], [facility] Unavailable Unavailable EMERGENCY PHYS, [facility] EMERGENCY PHYS [facility], Unavailable Unavailable [facility] Purpose Continuity of Care Document - 06-19-2013 [...] 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 I31.3 Pericardial [...] PAIN N EMERGENCY PHYS J449 CHRONIC 12-12-2016 [place] OBSTRUCTIVE MEDICAL PULMONARY IMAGING ASS DISEASE UNS R072 PRECORDIAL 12-12-2016 [facility] PAIN PHYSICIANS, [facility] R079 CHEST PAIN 12-12-2016 [place] UNSPECIFIED MEDICAL IMAGING ASS I10 ESSENTIAL 11-03-2016 [facility] HYPERTENSIO INC N I2510 ASHD AGUA CALIENTE 11-03-2016 [facility] CORONARY [facility] ARTERY W/O INC ANGINA PECTORIS R0602 SHORTNESS 11-03-2016 [place] OF BREATH MEDICAL IMAGING ASS R1013 EPIGASTRIC 11-03-2016 [place] PAIN [facility]ICAL [facility] ASS R109 UNSPECIFIED 11-03-2016 [facility] ABDOMINAL PHYSICIANS, PAIN [facility] Z720 TOBACCO USE 11-03-2016 [facility] INC G8918 OTHER ACUTE 03-31-2016 [facility] POSTPROCEDU INC RAL PAIN K4090 UNILAT 03-27-2016 [facility] INGUINAL PHYSICIANS SOHAM W/O GROUP OBST/GANGRE N NOT RECUR [id number] INFECTION 03-27-2016 [facility] FOLLOWING PHYSICIANS, PROCEDURE [facility] INITIAL ENCOUNTER P93752 ENCOUNTER 03-24-2016 [facility] PREPROCEDUR INC AL LABORATORY EXAM Y36215 MIGRAINE 03-15-2016 [facility] W/O [facility] NOT INTRACT INC W/O STAT MIGRAIN M545 LOW BACK 03-15-2016 [facility] PAIN [facility] INC R200 ANESTHESIA 03-15-2016 [facility] OF SKIN PHYSICIANS, [facility] C22734 OTHER 12-26-2015 ANGELES BOWLES MIGRAINE INTRACT W/O STATUS MIGRAINOSUS N529 MALE 12-26-2015 ANGELES BOWLES ERECTILE DYSFUNCTION UNSPECIFIED I209 ANGINA 11-25-2015 [facility] PECTORIS PHYSICIANS UNSPECIFIED GROUP I340 NONRHEUMATI 11-25-2015 [place] [facility] MITRAL SERV [facility] INSUFFICIEN CY I361 NONRHEUMATI 11-25-2015 [place] [facility] TRICUSPID SERV [facility]VE [facility] INSUFFICIEN CY I5189 OTHER 11-25-2015 [place] MEDICAL ILL-DEFINED SERV HEART FOUNDATION DISEASES R55 SYNCOPE AND 11-25-2015 [facility] COLLAPSE PHYSICIANS GROUP I480 PAROXYSMAL 11-24-2015 [facility] P N P4878MH ANAPHYLACTI 11-20-2015 [facility] DUE PEANUTS INC INIT ENCOUNTER [id number] ANAPHYLACTI 11-20-2015 [facility] SHOCK PH[facility]ANS, UNSPECIFIED PLLC INITIAL ENCOUNTER R51 HEADACHE 11-03-2015 [facility], PLLC 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 09-26-2015 [place] SINGLE MEDICAL THYROID IMAGING ASS NODULE R1310 DYSPHAGIA 09-26-2015 [place] UNSPECIFIED MEDICAL IMAGING ASS R634 ABNORMAL 09-26-2015 [place] WEIGHT LOSS MEDICAL IM[facility]ING ASS X72502 EFFUSION 09-18-2015 [place] RIGHT KNEE MEDICAL IMAGING ASS X60344 PAIN IN 09-18-2015 [place] RIGHT KNEE MEDICAL IMAGING ASS H56271M STRAIN UNS 09-18-2015 [facility] MUSCLE PHYSICIANS, TENDON LOW PLLC LEG RT LEG INIT ENC L8800MU UNS INJURY 09-18-2015 [place] RT LOWER MEDICAL LEG INITIAL IMAGING ASS ENCOUNTER I89283L UNSPECIFIED 09-18-2015 [place] INJURY MEDICAL RIGHT ANKLE IMAGING ASS INITIAL ENCOUNTER S41510H UNSPECIFIED 09-18-2015 [place] INJURY MEDICAL RIGHT FOOT IMAGING ASS INITIAL ENCOUNTER E069 THYROIDITIS 08-30-2015 [facility] PHYSICIANS UNSPECIFIED GROUP R946 ABNORMAL 08-20-2015 [facility] RESULTS OF [facility] THYROID INC FUNCTION STUDIES K088 OTH SPEC 06-07-2015 [facility] DISORDERS DON TEETH & SUPPORTING STRUCTURES M5022 OTH CERV 06-05-2015 [place] DISC ORTHOPEDIC DISPLACEMEN ASSOCIAT T MID-CERVICA L REGION M5116 INTERVERTEB 06-05-2015 [facility] DISC ORTHOPEDIC D/O ASSOCIAT W/RADICULOP ATHY LUMB RGN K648 OTHER 05-18-2015 [facility] G8929 OTHER 03-20-2015 [facility] CHRONIC PHYSICIANS PAIN GROUP T75241 OTHER LONG 03-20-2015 [facility] TERM PHYSICIANS CURRENT GROUP DRUG THERAPY N471 PHIMOSIS 03-07-2015 [place] [facility] PS N481 BALANITIS 03-01-2015 [facility] EMERGENCY PHYS R300 DYSURIA 03-01-2015 [facility] EMERGENCY PHYS N410 ACUTE 02-23-2015 [facility] PROSTATITIS [facility] 47413 OTHER 11-22-2014 [facility] V5869 LONG-TERM 11-22-2014 [facility] (CURRENT) [facility] USE OF HOSPITAL OTHER MEDICATIONS 88757 HORDEOLUM 10-22-2014 [facility] V571 OTHER 10-05-2014 [facility] PHYSICAL [facility] THERAPY INC 97777 UNSPECIFIED 09-27-2014 [place] MEDICAL ACUTE AND [place] [address] INJURY OF 09-27-2014 [facility] NECK OTHER AND UNSPECIFIED E9298 LATE 09-27-2014 IN MEDICAL EFFECTS OF SERV OTHER FOUNDATION ACCIDENTS 9181 SUPERFICIAL 09-24-2014 [place] [facility] INJURY OF SERV [place] [facility] E9179 OTHER 09-23-2014 IN MEDICAL STRIKING SERV AGAINST FOUNDATION W/WO SUBSEQUENT FALL V714 OBSERVATION 09-23-2014 [place] MEDICAL FOLLOWING SERV OTHER FOUNDATION ACCIDENT [id number] UNSPECIFIED 09-17-2014 [facility] BACKACHE PHYSICIANS, [facility] 7840 HEADACHE 09-17-2014 [facility] PHYSICIANS, [facility] 5259 UNSPECIFIED 09-12-2014 [facility] DISORDER PHYSICIANS, TEETH&SUPPO [facility] RTING STRUCTURES 19698 UNSPECIFIED 08-17-2014 [facility] SITE OF [facility] ANKLE INC SPRAIN AND STRAIN 9597 [...] DR #5 40 91 MG TA B MN 00 06 07 10 5 00 WA [...] 30 -2 -3 .0 00 ME ti MN 00 4- 1- 00 06 TO ve [...] 30 -2 -0 .0 00 ME ti MN 00 7- 3- 00 06 TO ve [...] 5 62 AR CE MA TA CY AR NO PH EN 5- 32 5 OX 47 01 03 27 10 00 CL Ac YC 78 -2 -0 .0 00 IN ti OD 10 8- 3- 00 00 IC ve ON 22 20 20 42 -A 90 17 17 04 PH CE 5 93 AR TA MA AR CY NO PH EN 7. 5- 32 [...] blood 12:30 platele t mean volume vick Newton % = 5.9 % 1.7-9.3 complet 017 [...] SQUARE METERS Comment: If this patient is -Chadian, then multiply the Comment: result by 1.210. [...] Bacteria XXX Anaerobe+Aerobe Cult (01-08-2017 23:49) Bacteri [id number] complet a XXX 017 06 No ed Anaerob 23:49 growth e+Aerob (qualif e Cult ier value) SCT NGB6 NO GROWTH DAY 5. L Comment: No growth (qualifier value) SPECIME [id number] complet N 017 03 ed CONTAIN 23:49 blood ER volume INFO: estimat ion (proced ure) SCT BVA BLOOD CULTURE VOLUME ACCEPTA BLE L SPECIME FANB complet N 017 AEROBIC ed CONTAIN 23:49 FAN ER AND INFO: ANAEROB IC BLOOD CULTURE BOTTLES L Bacteria XXX Anaerobe+Aerobe Cult (01-08-2017 23:49) Bacteri [id number] complet a XXX 017 06 No ed Anaerob 23:49 growth e+Aerob (qualif e Cult ier value) SCT NGB5 NO GROWTH DAY 4. L SPECIME [id number] complet N 017 03 ed CONTAIN 23:49 [...] Bacteria XXX Anaerobe+Aerobe Cult (01-08-2017 20:49) Bacteri [id number] complet a XXX 017 06 No ed Anaerob 20:49 growth e+Aerob (qualif e Cult ier value) SCT NGB6 NO GROWTH DAY 5. L SPECIME [id number] complet N 017 0 ed CONTAIN 20:49 [...] blood 09:40 platele t mean volume vick Newton % = 7.8 % 1.7-9.3 complet 017 [...] SQUARE METERS Comment: If this patient is -Chadian, then multiply the Comment: result by 1.210. [...] blood 22:50 platele t mean volume vick Newton % = 7.5 % 1.7-9.3 complet 017 [...] Procedure DOS Code Location Performer Comment RADIOLOGI 59670 [place] [facility] C EXAM 7 MEDICAL CHEST 2 IMAGING VIEWS ASS FRONTAL&L ATERAL Encounters Encounter Start End Date Code Location Performer Type Date EMERGENCY 22159 [facility] DEPT 7 7 [facility] VISIT EMERGENCY HIGH PHYS SEVERITY& THREAT [facility] 99140 [facility] DEPT 7 7 PHYSICIAN VISIT S, [facility] HIGH SEVERITY& THREAT [facility] - 7 7 [facility] 7 [facility] 7 7 [facility] - 7 7 [facility] - 6 6 [facility] - 6 6 [facility] - 6 6 [facility] - 6 6 [facility] - 6 6 [facility] - 6 6 N [facility] 5 5 N [facility] - 5 5 [facility] - 5 5 [facility] - 5 5 Y [facility] - 5 5 [facility]
--- OUTSIDE RECORDS SUMMARY | 2017-02-05 14:18 | External Medical Summary Rpt | CCD ---
Author Author , NAPOLEON Organization NAPOLEON Address Unknown Phone [email or web address] Immunization Name Date Rout CVX Reac Dose [...]
--- OUTSIDE RECORDS SUMMARY | 2017-02-05 14:18 | External Medical Summary Rpt | CCD ---
Author Author , NAPOLEON BENDER Address Unknown Phone Care Team Providers Care Client Relations Associate Name Role Phone ANGELES BOWLES, ANGELES Unavailable Unavailable WILBUR CERNA, CERNA Unavailable Unavailable DOMINIC ALFARO Unavailable Unavailable CHEL MILLIGAN Unavailable Unavailable [facility] Unavailable [facility]available [facility], [facility] Unavailable Unavailable INC, [facility] Unavailable [facility]available HOSPITAL, [facility] Unavailable [facility]available HOSPITAL P, [facility], [facility]available Unavailable [facility]available Unavailable GROUP PS, [facility] Unavailable Unavailable [facility]ING [facility], [facility] Unavailable Unavailable ASSOCIAT, [facility] Un[facility]available [facility], [facility] LEILANI HERNANDEZ, Unavailable Unavailable [facility], Unavailable Unavailable [facility], [facility], [facility] Unavailable Unavailable EMERGENCY PHYS, [facility], Unavailable Unavailable [facility] Purpose Continuity of Care Document - 08-17-2014 through 2016 Problems Code Diagnosis DOS Provider Status R0789 OTHER CHEST 12-23-2016 [facility] EMERGENCY PHYS J449 CHRONIC 12-12-2016 [place] OBSTRUCTIVE MEDICAL PULMONARY IMAGING ASS DISEASE UNS R072 PRECORDIAL 12-12-2016 [facility], [facility] R079 CHEST PAIN 12-12-2016 [place] UNSPECIFIED MEDICAL IMAGING ASS I10 ESSENTIAL 11-03-2016 [facility] HYPERTENSIO INC N I2510 [facility] [place] 11-03-2016 [facility] CORONARY [facility] ARTERY W/O INC ANGINA PECTORIS R0602 SHORTNESS 11-03-2016 [place] OF BREATH MEDICAL IMAGING ASS R1013 EPIGASTRIC 11-03-2016 [place] PAIN [facility]ICAL IM[facility]ING ASS R109 UNSPECIFIED 11-03-2016 [facility] ABDOMINAL PHYSICIANS, PAIN PLLC Z720 TOBACCO USE 11-03-2016 [facility] INC G8918 OTHER ACUTE 03-31-2016 [facility] POSTPROCEDU INC RAL PAIN K4090 UNILAT 03-27-2016 [facility] INGUINAL PHYSICIANS SOHAM W/O GROUP OBST/GANGRE N NOT RECUR F742RGJ INFECTION 03-27-2016 [facility] QIU PHYSICIANS, PROCEDURE PLL INITIAL ENCOUNTER G07658 ENCOUNTER 03-24-2016 [facility] PREPROCEDUR INC AL LABORATORY EXAM L81545 MIGRAINE 03-15-2016 [facility] W/O [facility] NOT INTRACT INC W/O STAT MIGRAIN M545 LOW BACK 03-15-2016 [facility] INC R200 ANESTHESIA 03-15-2016 [facility] OF SKIN PHYSICIANS, [facility] Y80339 OTHER 12-26-2015 [facility] WILBUR MIGRAINE INTRACT W/O STATUS MIGRAINOSUS N529 MALE 12-26-2015 [facility] WILBUR ERECTILE DYSFUNCTION UNSPECIFIED I209 ANGINA 11-25-2015 [facility] PECTORIS PHYSICIANS UNSPECIFIED GROUP I340 NONRHEUMATI 11-25-2015 [place] [facility] INSUFFICIEN CY I361 NONRHEUMATI 11-25-2015 [place] [facility] TRICUSPID SERV VALVE [facility]OUNDATION INSUFFICIEN CY I5189 OTHER 11-25-2015 [place] [facility] ILL-DEFINED SERV HEART [facility] DISEASES R55 SYNCOPE AND 11-25-2015 [facility] COLLAPSE PHYSICIANS GROUP I480 PAROXYSMAL 11-24-2015 [facility] P N N9201LK ANAPHYLACTI 11-20-2015 [facility] DUE PEANUTS INC INIT ENCOUNTER Q084MDD ANAPHYLACTI 11-20-2015 [facility] Dcikey SHOCK PHYSICIANS, UNSPECIFIED [facility] INITIAL ENCOUNTER R51 HEADACHE 11-03-2015 [facility] MONTAÑO, [facility] 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 09-26-2015 [place] SINGLE MEDICAL THYROID IMAGING ASS NODULE R1310 DYSPHAGIA 09-26-2015 [place] UNSPECIFIED MEDICAL IMAGING ASS R634 ABNORMAL 09-26-2015 [place] WEIGHT LOSS MEDICAL IM[facility]ING ASS H29206 EFFUSION 09-18-2015 [place] RIGHT KNEE MEDICAL IMAGING ASS L53053 PAIN IN 09-18-2015 [place] RIGHT KNEE MEDICAL IMAGING ASS J70389P STRAIN UNS 09-18-2015 [facility] MUSCLE PHYSICIANS, TENDON LOW PLL LEG RT LEG INIT ENC J1409BQ UNS INJURY 09-18-2015 [place] RT LOWER MEDICAL LEG INITIAL IMAGING ASS ENCOUNTER N97684O UNSPECIFIED 09-18-2015 [place] INJURY MEDICAL RIGHT ANKLE IMAGING ASS INITIAL ENCOUNTER D26356E UNSPECIFIED 09-18-2015 [facility] INJURY MEDICAL RIGHT FOOT IMAGING ASS INITIAL ENCOUNTER E069 THYROIDITIS 08-30-2015 [facility] PHYSICIANS UNSPECIFIED GROUP R946 ABNORMAL 08-20-2015 [facility]ULTS [facility] MEM [facility]OS[facility] THYROID INC FUNCTION STUDIES K088 OT SPEC 06-07-2015 [facility] DISORDERS DON TEETH & SUPPORTING STRUCTURES M5022 OTH CERV 06-05-2015 [place] DISC ORTHOPEDIC DISPLACEMEN ASSOCIAT T MID-CERVICA L REGION M5116 INTERVERTEB 06-05-2015 [place] RAL DISC ORTHOPEDIC D/O ASSOCIAT W/RADICULOP ATHY LUMB RGN K648 OTHER 05-18-2015 [facility] G8929 OTHER 03-20-2015 [facility] CHRONIC PHYSICIANS PAIN GROUP R99248 OTHER LONG 03-20-2015 [facility] TERM PHYSICIANS CURRENT GROUP DRUG THERAPY N471 PHIMOSIS 03-07-2015 [place] [facility] PS N481 BALANITIS 03-01-2015 [facility] EMERGENCY PHYS R300 DYSURIA 03-01-2015 [facility] EMERGENCY PHYS N410 ACUTE 02-23-2015 [facility] PROSTATITIS [facility] INC 16979 OTHER 11-22-2014 [facility] V5869 LONG-TERM 11-22-2014 [facility] (CURRENT) [facility] USE OF HOSPITAL OTHER MEDICATIONS 98087 HORDEOLUM 10-22-2014 [facility] V571 OTHER 10-05-2014 [facility] PHYSICAL [facility] THERAPY INC 28323 UNSPECIFIED 09-27-2014 [place] [facility] [place] [address] INJURY OF 09-27-2014 [facility] NECK OTHER AND UNSPECIFIED E9298 LATE 09-27-2014 [place] MEDICAL EFFECTS OF SERV OTHER FOUNDATION ACCIDENTS 9181 SUPERFICIAL 09-24-2014 [place] [facility] INJURY OF SERV [place] [facility] E9179 OTHER 09-23-2014 [place] MEDICAL STRIKING SERV AGAINST FOUNDATION W/WO SUBSEQUENT FALL V714 OBSERVATION 09-23-2014 [place] MEDICAL FOLLOWING SERV OTHER FOUNDATION ACCIDENT 7245 UNSPECIFIED 09-17-2014 [facility] BACKACHE PHYSICIANS, [facility] 7825 HEADACHE 09-17-2014 [facility], PLLC 6197 UNSPECIFIED 09-12-2014 [facility] DISORDER PHYSICIANS, TEETH&SUPPO [facility] RTING STRUCTURES 29824 UNSPECIFIED 08-17-2014 [facility] SITE OF MEM HOSP ANKLE INC SPRAIN AND STRAIN 9597 INJURY 08-17-2014 [place] OTHER&UNS MEDICAL CIFIED KNEE IMAGING ASS LEG ANKLE&FOOT [...] DR #5 40 91 MG TA B DC 00 06 07 10 5 00 WA [...] 30 -2 -3 .0 00 ME ti DC 00 4- 1- 00 06 TO ve [...] 30 -2 -0 .0 00 ME ti DC 00 7- 3- 00 06 TO ve [...] Procedure DOS Code Location Performer Comment RADIOLOGI 88493 [facility] C EXAM 7 MEDICAL CHEST 2 IMAGING VIEWS ASS FRONTAL&L ATERAL Encounters Encounter Start End Date Code Location Performer Type Date EMERGENCY 13781 NICOLE ALFARO DEPT 7 7 [facility] VISIT EMERGENCY HIGH PHYS SEVERITY& THREAT FUN EMERGENCY 90024 [facility] MILLIGAN DEPT 7 7 PHYSICIAN VISIT S, [facility] HIGH SEVERITY& THREAT [facility] - 7 7 [facility]PATI[facility] - 7 7 [facility] OUTPATIEN [facility] - 7 7 [facility] - 7 7 [facility] - 7 7 [facility] - 7 7 [facility] - 6 6 [facility] - 6 6 [facility] - 6 6 [facility] - 6 6 [facility] - 6 6 N OUTPATI[facility] - 6 [facility] 6 N [facility]PATI[facility] - 5 5 N [facility] - 5 [facility] - 5 5 [facility] - 5 5 [facility]
--- OUTSIDE RECORDS SUMMARY | 2017-02-05 14:18 | External Medical Summary Rpt | CCD ---
Author Author , NAPOLEON Organization [facility] Address Unknown Phone [email or web address] Immunization Name Date Rout CVX Reac Dose [...]
--- OUTSIDE RECORDS SUMMARY | 2017-02-05 14:18 | External Medical Summary Rpt | CCD ---
Author Author , NAPOLEON BENDER Address Unknown Phone [email or web address] Care Team Providers Care Looping Inspector Name Role Phone ANGELES BOWLES, ANGELES Unavailable Unavailable WILBUR CERNA, CERNA Unavailable Unavailable DOMINIC ALFARO Unavailable Unavailable CHEL MILLIGAN Unavailable Unavailable [facility] Unavailable Unavailable INC, [facility] Unavailable Unavailable H[facility]PITAL, [facility] Unavailable Unavailable HOSPITAL P, [facility], Unavailable Unavailable [facility] Un[facility] Unavailable GROUP PS, [facility] Unavailable Unavailable [facility], [facility] Unavailable Unavailable [facility]AT, [facility] Un[facility] Un[facility], [facility] LEILANI HERNANDEZ, Unavailable Unavailable [facility], Unavailable Unavailable [facility], [facility], [facility] Unavailable Unavailable EMERGENCY PHYS, [facility], Unavailable Unavailable [facility] Purpose Continuity of Care Document - 08-17-2014 through 2016 Problems Code Diagnosis DOS Provider Status R0789 OTHER CHEST 12-23-2016 [facility] J449 CHRONIC 12-12-2016 [facility] DISEASE UNS R072 PRECORDIAL 12-12-2016 [facility] PAIN [facility] R079 CHEST PAIN 12-12-2016 [facility] UNSPECIFIED [facility] I10 ESSENTIAL 11-03-2016 [facility] HYPERTENSIO INC N I2510 ASHD LAC [place] 11-03-2016 [facility] CORONARY [facility] ARTERY W/O INC ANGINA PECTORIS R0602 SHORTNESS 11-03-2016 [facility] OF BREATH [facility]ICAL [facility] R1013 EPIGASTRIC 11-03-2016 [facility]IN [facility] R109 UNSPECIFIED 11-03-2016 [facility] ABDOMINAL [facility], PAIN PLLC Z720 TOBACCO USE 11-03-2016 [facility] INC G8918 OTHER ACUTE 03-31-2016 [facility] POSTPROCEDU INC RAL PAIN K4090 UNILAT 03-27-2016 [facility] INGUINAL PHYSICIANS SOHAM W/O GROUP OBST/GANGRE N NOT RECUR H571IFN INFECTION 03-27-2016 [facility] QIU PHYS[facility]ANS, PROCEDURE PLL INITIAL ENCOUNTER A11850 ENCOUNTER 03-24-2016 [facility] PREPROCEDUR INC AL LABORATORY EXAM Q68119 MIGRAINE 03-15-2016 [facility] W/O [facility]UR[facility] NOT INTRACT INC W/O STAT MIGRAIN M545 LOW BACK 03-15-2016 [facility] PAIN [facility] INC R200 ANESTHESIA 03-15-2016 [facility] OF SKIN PHYSICIANS, THE REHABILITATION INSTITUTEC M49546 OTHER 12-26-2015 [facility] MIGRAINE INTRACT W/O STATUS MIGRAINOSUS N529 MALE 12-26-2015 [facility] ERECTILE DYSFUNCTION UNSPECIFIED I209 ANGINA 11-25-2015 [facility] PECTORIS PHYSICIANS UNSPECIFIED GROUP I340 NONRHEUMATI 11-25-2015 [facility]AL [facility] INSUFFICIEN CY I361 NONRHEUMATI 11-25-2015 [facility] TRICUSPID SERV [facility]VE [facility] INSUFFICIEN CY I5189 OTHER 11-25-2015 [facility]LL-DEFINED [facility] HEART [facility] DISEASES R55 SYNCOPE AND 11-25-2015 [facility] COLLAPSE PHYSICIANS GROUP I480 PAROXYSMAL 11-24-2015 [facility] P N [id number] ANAPHYLACTI 11-20-2015 [facility] DUE PEANUTS INC INIT ENCOUNTER [id number] ANAPHYLACTI 11-20-2015 [facility] Dickey SHOCK PHYSICIANS, UNSPECIFIED [facility] INITIAL ENCOUNTER R51 HEADACHE 11-03-2015 [facility] MONTAÑO, [facility] 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 09-26-2015 [facility]ROID [facility] NODULE R1310 DYSPHAGIA 09-26-2015 [facility] UNSPECIFIED [facility] ASS R634 ABNORMAL 09-26-2015 [facility] Q74471 EFFUSION 09-18-2015 [facility]EE [facility] A75357 PAIN IN 09-18-2015 [facility] H02709J STRAIN UNS 09-18-2015 [facility] MUSCLE PHYSICIANS, TENDON LOW PLL LEG RT LEG INIT ENC [id number] UNS INJURY 09-18-2015 [place] RT LOWER MEDICAL LEG INITIAL IMAGING ASS ENCOUNTER B18040T UNSPECIFIED 09-18-2015 [place] INJURY [facility]ICAL RIGHT ANKLE IMAGING ASS INITIAL ENCOUNTER O02611S UNSPECIFIED 09-18-2015 [facility] MEDICAL RIGHT FOOT IMAGING ASS INITIAL ENCOUNTER E069 THYROIDITIS 08-30-2015 [facility] PHYSICIANS UNSPECIFIED GROUP R946 ABNORMAL 08-20-2015 [facility] THYROID INC FUNCTION STUDIES K088 OT SPEC 06-07-2015 [facility] DISORDERS DON TEETH & SUPPORTING STRUCTURES M5022 OTH CERV 06-05-2015 [place] DISC ORTHOP[facility]IC DISPLACEMEN ASSOCIAT T MID-CERVICA L REGION M5116 INTERVERTEB 06-05-2015 [place] RAL DISC ORTHOPEDIC D/O ASSOCIAT W/RADICULOP ATHY LUMB RGN K648 OTHER 05-18-2015 [facility] G8929 OTHER 03-20-2015 [facility] CHRONIC PHYSICIANS PAIN GROUP I83384 OTHER LONG 03-20-2015 [facility] TERM PHYSICIANS CURRENT GROUP DRUG THERAPY N471 PHIMOSIS 03-07-2015 [facility] PS N481 BALANITIS 03-01-2015 [facility] R300 DYSURIA 03-01-2015 [facility] N410 ACUTE 02-23-2015 [facility] 89511 OTHER 11-22-2014 [facility] V5869 LONG-TERM 11-22-2014 [facility] (CURRENT) [facility] USE OF HOSPITAL OTHER MEDICATIONS 98069 HORDEOLUM 10-22-2014 [facility] V571 OTHER 10-05-2014 [facility] THERAPY INC 55264 UNSPECIFIED 09-27-2014 [facility] [place] [address] INJURY OF 09-27-2014 [facility] NECK OTHER AND UNSPECIFIED E9298 LATE 09-27-2014 [place] [facility] EFFECTS OF SERV OTHER FOUNDATION ACCIDENTS [id number] SUPERFICIAL 09-24-2014 [place] [facility] INJURY OF SERV [place] [facility] E9179 OTHER 09-23-2014 [place] [facility] STRIKING SERV AGAINST FOUNDATION W/WO SUBSEQUENT FALL V714 OBSERVATION 09-23-2014 [place] [facility] FOLLOWING SERV OTHER [facility] ACCIDENT [id number] UNSPECIFIED 09-17-2014 [facility] BACKACHE PHYSICIANS, THE REHABILITATION INSTITUTEC 7855 HEADACHE 09-17-2014 [facility], PLLC 0156 UNSPECIFIED 09-12-2014 [facility] DISORDER PHYSICIANS, TEETH&SUPPO [facility] RTING STRUCTURES 11027 UNSPECIFIED 08-17-2014 [facility] ANKLE INC SPRAIN AND STRAIN 9597 INJURY 08-17-2014 [place] OTHER&UNS MEDICAL CIFIED [facility]AGING ASS LEG [...] DR #5 40 91 MG TA B NH 00 06 07 10 5 00 WA [...] 30 -2 -3 .0 00 ME ti NH 00 4- 1- 00 06 TO ve [...] 30 -2 -0 .0 00 ME ti NH 00 7- 3- 00 06 TO ve [...] 5 62 AR CE MA TA CY DE NO PH EN 5- 32 5 OX 47 01 03 27 10 00 CL Ac YC 78 -2 -0 .0 00 IN ti OD 10 8- 3- 00 00 IC ve ON 22 20 20 42 -A 90 17 17 04 PH CE 5 93 AR TA MA DE CY NO PH EN 7. 5- 32 [...] Procedure DOS Code Location Performer Comment RADIOLOGI 57671 [facility] C EXAM 7 MEDICAL CHEST 2 IMAGING VIEWS ASS FRONTAL&L ATERAL Encounters Encounter Start End Date Code Location Performer Type Date EMERGENCY 34679 NICOLE ALFARO DEPT 7 7 WAYNE VISIT EMERGENCY HIGH PHYS SEVERITY& THREAT FUN EMERGENCY 18604 [facility] MILLIGAN DEPT 7 7 PHYSICIAN VISIT S, [facility] HIGH SEVERITY& THREAT FUNJ HOSPITAL [facility] - 7 7 [facility] OUTPATIEN [facility] - 7 7 [facility] - 7 7 [facility] OUTPATIEN [facility] - 7 7 [facility] OUTPATIEN [facility] - 7 7 [facility] OUTPATIEN [facility] - 7 7 [facility] OUTPATIEN [facility] - 6 6 [facility] - 6 6 [facility] OUTPATIEN [facility] - 6 6 [facility] OUTPATIEN [facility] - 6 6 [facility] - 6 6 N [facility]PAT[facility] - 6 6 [facility] 6 6 N [facility]PAT[facility] - 5 5 N [facility] 5 5 [facility] - 5 5 [facility] - 5 5 [facility] - 5 5 [facility]
--- OUTSIDE RECORDS SUMMARY | 2017-02-05 14:19 | External Medical Summary Rpt ---
Author Author WENNEREIDA Benjamin, [employer] Organization [employer] Address Unknown Phone Unavailable Results CBC W Auto Differential panel in Blood Observa Value Referen Units Interpr Notes Date tion ce etation Range Basophils 0 - 0.2 K/MM3 Normal No Jan 19 inform2016 [#/volume on in 12:30 PM ] in source Blood by data Automated count Basophils 0.1 - 2.0 % Normal No Jan 19 /2016 leukocyte on in 12:30 PM s in source Blood by data Automated count Eosinophi 0.0 - 0.4 K/mm3 Normal No Jan 19 ls 2016 [#/volume on in 12:30 PM ] in source Blood by data Automated count Eosinophi 0.1 - % Normal No Jan 19 ls/100 12.0 2016 leukocyte on in 12:30 PM s in source Blood by data Automated count Granulocy 1.3 - 8.0 K/mm3 High Jan 19 mary lou 2016 [#/volume on in 12:30 PM ] in source Blood by data Automated count Granulocy 37.0 - % High No Jan 19 mary lou/100 80.0 2016 leukocyte on in 12:30 PM s in source Blood by data Automated count Hematocri 42.0 - % Low Jan 19 t [Volume 52.0 2016 on in 12:30 PM Fraction] source of Blood data Hemoglobi 14.1 - g/dL Low No Jan 19 n 18.0 2016 [Mass/vol on in 12:30 PM ume] in source Blood data Lymphocyt 0.7 - 4.5 K/mm3 Normal No Jan 19 es 2016 [#/volume on in 12:30 PM ] in source Unspecifi data ed specimen by Automated count Lymphocyt 10 - 50 % Low No Jan 19 es 2016 [#/volume on in 12:30 PM ] in source Unspecifi data ed specimen by Automated count Erythrocy 27 - 31.2 pg Normal No Jan 19 te mean 2016 corpuscul on in 12:30 PM ar source hemoglobi data n [Entitic mass] Erythrocy 31.8 - g/dl Low No Jan 19 te mean 35.4 2016 corpuscul on in 12:30 PM ar source hemoglobi data n concentra tion [Mass/vol ume] by Automated count Erythrocy 82.2 - fl Normal No Jan 19 te mean 97.8 2016 corpuscul on in 12:30 PM ar volume source [Entitic data volume] by Automated count Monocytes 0.1 - 1.0 K/mm3 Normal No Jan 192016 [#/volume on in 12:30 PM ] in source Blood by data Automated count Monocytes 1.7 - 9.3 % Normal No Jan 19 /100 2016 leukocyte on in 12:30 PM s in source Blood by data Automated count Platelet 7.4 - fl Normal No Jan 19 mean 10.4 2016 volume on in 12:30 PM [Entitic source volume] data in Blood by Automated count Platelets 142 - 424 K/mm3 High No Jan 192016 [#/volume on in 12:30 PM ] in source Blood data Erythrocy 4.6 - 6.2 M/mm3 Low No Jan 19 mary lou 2016 [#/volume on in 12:30 PM ] in source Amniotic data fluid Erythrocy 11.5 - % Normal Jan 19 te 17.5 2016 distribut on in 12:30 PM ion width source [Entitic data volume] by Automated count Leukocyte 4.8 - K/MM3 High No Jan 19 s 10.8 2016 [#/volume on in 12:30 PM ] in source Blood data Differential panel, method unspecified - Observa Value Referen Units Interpr Notes Date tion ce etation Range LYMPH 6 10 - 50 % Low No Jan 192016 tion in 12:30 source PM data Monocytes 2 - 9 % Normal No Jan 19 /100 2016 leukocyte on in 12:30 PM s in source Blood by data Automated count Platele MARKED No No No No Jan 19 ts INCREAS informa informa informa 2016 [Presen E tion in tion in tion in tion in 12:30 ce] in source source source source PM Blood data data data data by Light microsc opy Neutrophi 42 - 76 % High No Jan 19 ls 2016 [#/volume on in 12:30 PM ] in source Blood by data Automated count Erythro NORMAL No No No No Dec 21 cyte informa informa informa informa 2017 morphol tion in tion in tion in tion in 12:30 ogy source source source source PM finding data data data data [Identi fier] in Blood Cells No #CELLS No No Jan 19 Counted informati informati informati 2016 Total [#] on in on in on in 12:30 PM in Blood source source source data data data Thyrotropin [Units/volume] in Serum or Plasma Observa Value Referen Units Interpr Notes Date tion ce etation Range Thyrotrop 0.358 - uIU/ml No No Jan 19 in 3.740 informati informati 2016 [Units/vo on in on in 12:30 PM lume] in source source Serum or data data Plasma Lactate [Moles/volume] in Blood Observa Value Referen Units Interpr Notes Date tion ce etation Range Lactate 0.4 - 2.0 mmol/L Normal No Jan 08 [Moles/vo informati 2016 lume] in on in 11:10 AM Blood [...] 10 ZA B DETECTE DETECTD informa informa @[id number] ANTIGEN D tion in tion in 3 [...] Basophils 0 - 0.2 K/MM3 Normal No Jan 08 informati 2016 9:40 [#/volume on in AM ] in source Blood by data Automated count Basophils 0.1 - 2.0 % Normal No Dec 10 /100 informati 2016 9:40 leukocyte on in AM [...] Automated count Granulocy 37.0 - % High No Jan 08 mary lou/100 80.0 informati 2016 9:40 leukocyte on in AM [...] - 50 % Low No Jan 08 es 2016 9:40 [#/volume on in AM ] in source Unspecifi data ed specimen by Automated count Erythrocy 27 - 31.2 pg Normal No Jan 08 te mean informati 2016 9:40 corpuscul on in AM ar source hemoglobi data n [Entitic mass] Erythrocy 31.8 - g/dl Normal No Jan 08 te mean 35.4 informati 2016 [...] 1.7 - 9.3 % Normal No Jan 08ati 2016 9:40 leukocyte on in AM s in source Blood by data Automated count Platelet 7.4 - fl Normal No Dec 10 mean 10.4 2016 9:40 volume on in AM [Entitic source volume] data in Blood by Automated count Platelets 142 - 424 K/mm3 No No Jan 08 informati informati 2016 9:40 [#/volume on in on in AM ] in source source Blood data data Erythrocy 4.6 - 6.2 M/mm3 Low No Jan 08 mary lou ati 2016 9:40 [#/volume on in AM ] in source Amniotic data fluid Erythrocy 11.5 - % Normal No Jan 08 te 17.5 informati 2016 9:40 distribut on in AM ion width source [Entitic data volume] by Automated count Leukocyte 4.8 - K/MM3 High No Jan 08 s 10.8 inform2016 9:40 [#/volume on in AM ] in source Blood data Differential panel, method unspecified - Observa Value Referen Units Interpr Notes Date tion ce etation Range Lymphocyt 0 - 5 % Normal No Jan 08 es 2016 9:40 Variant/1 on in AM 00 source leukocyte data s in Blood by Manual count LYMPH 5 10 - 50 % Low No Jan 082016 tion in 9:40 AM source data Monocytes 2 - 9 % Normal No Jan 082016 9:40 leukocyte on in AM s in [...] Automated count Cells No #CELLS No No Jan 08 Counted ati informati 2016 9:40 Total [#] on in [...] Albumin 3.4 - 5.0 gm/dL Low No Jan 08 [Mass/vol informati 2016 9:40 ume] in on in AM Serum or source Plasma data Alkaline 46 - 116 U/L Normal No Jan 08 phosphata informati 2016 9:40 se on in AM [Enzymati [...] Normal No Jan 08 [Mass/vol 10.1 informati 2016 9:40 ume] in on in [...] 15 - 37 U/L Low No Jan 082016 9:40 aminotran on in AM sferase source [Enzymati data c activity/ volume] in Serum or Plasma Alanine 12 - 78 U/L Normal No Jan 08 aminotran 2016 9:40 sferase on in AM [Enzymati [...] mg/dL High No Dec 12 [Mass/vol informati 2017 ume] in on in 11:30 PM Urine [...] strip Ketones 1+ NEG mg/dL Abnorma No Nov 14 l inform2016 [Presen tion in 11:30 ce] in source [...] E.U./dL No No Dec 12 nogen informa inform2016 [Presen tion in tion in 11:30 ce] in source source PM Urine data data by Test strip CBC W Auto Differential panel in Blood Observa Value Referen Units Interpr Notes Date tion ce etation Range Basophils 0 - 0.2 K/MM3 Normal No Nov 14 2016 [#/volume on in 10:50 PM ] in source Blood by data Automated count Basophils 0.1 - 2.0 % Normal No Nov 14 /100 2017 leukocyte on in 10:50 PM s in source Blood by data Automated count Eosinophi 0.0 - 0.4 K/mm3 Normal No Nov 14 ls 2016 [#/volume on in 10:50 PM [...] 1.7 - 9.3 % Normal No Dec 122016 leukocyte on [...] M/mm3 Low No Dec 12 mary lou informati 2016 [#/volume on in 10:50 PM ] in source Amniotic data fluid Erythrocy 11.5 - % Normal No Dec 12 te 17.5 informati 2016 distribut on in 10:50 PM ion width source [Entitic data volume] by Automated count Leukocyte 4.8 - K/MM3 Normal No Dec 12 s 10.8 informati 2016 [#/volume on in [...] method Barbitura <200 ng/mL No No Sep mary lou informati informati 2016 [Mass/vol on in on in ume] in source source Urine by data data Screen method Benzodiaz 200 ng/mL ng/mL No No Sep 6 epines informati informati 2016 [Mass/vol on in on in ume] in source source Serum or data data Plasma by Screen method Cocaine <300 ng/g No No Sep 6 [Mass/vol informati informati 2016 ume] in on in on in Unspecifi source source ed data data specimen Methadone <300 ng/mL No No Sep 6 informati informati 2016 [Mass/vol on in on in ume] in source source Unspecifi data data ed specimen Opiates <300 ng/mL High This is Sep 6 [Mass/vol an 2017 ume] in UNCONFIRM Unspecifi ED ed result. [...] % Normal No Sep 5 /100 informati 2016 leukocyte on in 11:30 PM s in source Blood by data Automated count Eosinophi 0.0 - 0.4 K/mm3 Normal No Sep 5 ls informati 2016 [#/volume on in 11:30 PM ] in source Blood by data Automated count Eosinophi 0.1 - % Normal No Sep 5 ls/100 12.0 informati 2016 leukocyte on in 11:30 PM s [...] 4.5 K/mm3 Normal No Sep 5 es inform2016 [#/volume on in 11:30 PM ] in source Unspecifi data ed specimen by Automated count Lymphocyt 10 - 50 % Normal No Sep 5 es informati 2017 [#/volume on in 11:30 PM ] in source Unspecifi data ed specimen by Automated count Erythrocy 27 - 31.2 pg Normal No Sep 5 te mean inform 2017 corpuscul on in 11:30 PM ar source hemoglobi data n [Entitic mass] Erythrocy 31.8 - g/dl Normal No Sep 5 te mean 35.4 informati 2016 corpuscul on in 11:30 PM ar source hemoglobi data n concentra tion [Mass/vol ume] by Automated count Erythrocy 82.2 - fl Normal No Sep 5 te mean 97.8 2016 corpuscul on in 11:30 PM ar volume [...] 424 K/mm3 No No Sep 5 informati ati 2016 [#/volume on in on in 11:30 [...] No Sep 5 [Mass/vol informati informati informati 2016 ume] in [...] Basophils 0 - 0.2 K/MM3 Normal No Jul 1 informati 2016 1:22 [#/volume on in [...] Normal No Shad 1 ls/100 12.0 informati 2017 1:22 leukocyte on in AM s in source Blood by data Automated count Granulocy 1.3 - 8.0 K/mm3 Normal No Shad 1 mary lou informati 2017 1:22 [#/volume on in AM ] in source Blood by data Automated count Granulocy 37.0 - % Normal No Shad 1 mary lou/100 80.0 informati 2016 1:22 leukocyte on in AM s in source Blood by data Automated count Hematocri 42.0 - % Normal No Shad 1 t [Volume 52.0 informati 2016 1:22 on in AM Fraction] source of Blood data Hemoglobi 14.1 - g/dL Normal No Shad 1 n 18.0 informati 2017 1:22 [Mass/vol on in AM ume] in source Blood data Lymphocyt 0.7 - 4.5 K/mm3 Normal No Shad 1 es informati 2017 1:22 [#/volume on in AM ] in source Unspecifi data ed specimen by Automated count Lymphocyt 10 - 50 % Normal No Shad 1 es informati 2017 1:22 [#/volume on in AM ] in source Unspecifi data ed specimen by Automated count Erythrocy 27 - 31.2 pg Normal No Shad 1 te mean informati 2017 1:22 corpuscul on in AM ar source hemoglobi data n [Entitic mass] Erythrocy 31.8 - g/dl Normal No Shad 1 te mean 35.4 informati 2016 1:22 corpuscul on in AM ar source hemoglobi data n concentra tion [Mass/vol ume] by Automated count Erythrocy 82.2 - fl Normal No Shad 1 te mean 97.8 informati 2016 1:22 corpuscul on in AM ar volume [...] count Platelet 7.4 - fl Low No Shad 1 mean 10.4 informati 2016 1:22 volume on in AM [Entitic source volume] data in Blood by Automated count Platelets 142 - 424 K/mm3 Normal No Shad 1 informati 2017 1:22 [#/volume on in AM ] in source Blood data Erythrocy 4.6 - 6.2 M/mm3 Normal No Jul 1 mary lou inform2016 1:22 [#/volume on in AM ] in source Amniotic data fluid Erythrocy 11.5 - % Normal No Jul 1 te 17.5 informati 2016 1:22 distribut on [...]
--- OUTSIDE RECORDS SUMMARY | 2017-02-05 14:19 | External Medical Summary Rpt ---
[...] 10 ZA B DETECTE DETECTD informa informa @[id number] ANTIGEN D tion in tion in 3 [...]
[2017-02-05 14:34] LABS: HEMOGLOBIN 10.6 g/dL (14.1-18.0); LYMPH % 19.2 % (10-50)
[2017-02-05 14:54] LABS: BUN 11 mg/dL (7-18)
[2017-02-05 14:59] LABS: GFR (ESTIMATED) 90 ML/MIN (>60)
[2017-02-05] MEDS ORDERED: DIGOX0.25 MG PO (15:11)
[2017-02-05] MEDS ORDERED: DILTIAZEM 24HR120 MG PO (15:11)
[2017-02-05 15:18] VITALS: BP 109/67
--- NOTE | 2017-02-05 15:24 | RADIOLOGY REPORT PS360 ---
CHEST-PORTABLE HISTORY: ELEVATED HR ORDERING PHYSICIAN: Pavithra iBrmingham MD PATIENT AGE: 51 years COMPARISON: 01/19/2017 FINDINGS: Left lower lobe consolidation with small effusion is once again noted and is moderately improved compared to the previous exam. The right lung is clear area COPD with hyperinflation. Mild cardiomegaly.. IMPRESSION: System but improved left lower lobe consolidation with effusion with COPD
--- NOTE | 2017-02-05 15:24 | RADIOLOGY REPORT PS360 ---
CHEST-PORTABLE HISTORY: ELEVATED HR ORDERING PHYSICIAN: Pavithra Birmingham MD PATIENT AGE: 51 years COMPARISON: 01/19/2017 FINDINGS: Left lower lobe consolidation with small effusion is once again noted and is moderately improved compared to the previous exam. The right lung is clear area COPD with hyperinflation. Mild cardiomegaly.. IMPRESSION: System but improved left lower lobe consolidation with effusion with COPD
== END 2017-02-05 15:21 | disposition home or self-care (01) ==
LOC: ER 13:48
PROVIDERS: Emergency Medicine
DX: I48.92 Unspecified atrial flutter (principal); I25.10 Atherosclerotic heart disease of native coronary artery without angina pectoris; I10 Essential (primary) hypertension; F31.9 Bipolar disorder, unspecified; F20.0 Paranoid schizophrenia; F17.210 Nicotine dependence, cigarettes, uncomplicated; Z76.0 Encounter for issue of repeat prescription; Z91.010 Allergy to peanuts; Z79.82 Long term (current) use of aspirin; Z79.899 Other long term (current) drug therapy